=== PATIENT | female | born 1970 | race Caucasian/White ===

== ENCOUNTER 2016-05-04 05:56 | Emergency (ER) | payer BC, OTHER ==
[2016-05-04] MEDS ORDERED: ONDANSETRON 4 MG/2 ML VIAL IVP STA ×2 (06:08→10:04)
[2016-05-04] MEDS ORDERED: ONDANSETRON 4 MG/2 ML VIAL ONE ×2 (06:14→10:04)
[2016-05-04] MEDS ORDERED: SODIUM CHLORIDE 0.9% 1,000 ML IV ONE ×2 (06:41→08:30)
[2016-05-04] MEDS ORDERED: MORPHINE 2 MG/ML SYRINGE IVP STA (06:50)
[2016-05-04] MEDS ORDERED: MORPHINE 2 MG/ML SYRINGE ONE ×2 (07:01)
[2016-05-04] MEDS ORDERED: HYDROmorphone 1 MG/ML SYRINGE IVP STA ×2 (08:05→08:29)
[2016-05-04] MEDS ORDERED: HYDROmorphone 1 MG/ML SYRINGE ONE ×2 (08:08→08:29)
[2016-05-04] MEDS ORDERED: KETOROLAC 60 MG/2 ML VIAL IVP STA (08:16)
[2016-05-04] MEDS ORDERED: KETOROLAC 30 MG/ML VIAL ONE (08:17)
[2016-05-04] MEDS ORDERED: PROMETHAZINE 25 MG/1 ML VIAL ONE ×2 (08:42→12:07)
[2016-05-04] MEDS ORDERED: PROMETHAZINE INJ 12.5 MG in SODIUM CHLORIDE 0.9% 50 ML IV STA ×2 (08:43→12:01)
== END 2016-05-04 13:36 | disposition home or self-care (01) ==
DX: R10.11 Right upper quadrant pain (principal); R11.2 Nausea with vomiting, unspecified; D72.829 Elevated white blood cell count, unspecified; R42 Dizziness and giddiness; Z90.49 Acquired absence of other specified parts of digestive tract; Z90.5 Acquired absence of kidney; E78.00 Pure hypercholesterolemia, unspecified; I25.10 Atherosclerotic heart disease of native coronary artery without angina pectoris; I25.2 Old myocardial infarction; Z95.5 Presence of coronary angioplasty implant and graft; Z79.02 Long term (current) use of antithrombotics/antiplatelets; Z79.82 Long term (current) use of aspirin; Z87.891 Personal history of nicotine dependence
CPT/HCPCS: 36415; 76705; 80053; 81003; 82550; 83605; 83690; 83880; 84443; 84484; 85025; 87275; 87276; 93005; 93010; 96365; 96366; 96375; 96376; 99284; 99285; J1170

== ENCOUNTER 2016-05-31 14:44 | Outpatient (CLI) | payer OTHER | END 2016-05-31 14:45 | disposition home or self-care (01) | DX: R10.11 Right upper quadrant pain (principal); Z90.49 Acquired absence of other specified parts of digestive tract | CPT/HCPCS: 78226; A9537 ==

== ENCOUNTER 2016-09-08 08:34 | Outpatient (CLI) | payer OTHER ==
--- NOTE | 2016-09-12 09:37 | Mammography Report ---
DIGITAL BILATERAL SCREENING MAMMOGRAM: 09/08/2016 CLINICAL HISTORY: A 45-year-old female in for routine screening mammogram. Patient has no family hi story of breast cancer. Patient has had no breast surgeries. COMPARISON: 01/07/2008, 05/07/2011, 06/04/2014, 06/28/2015 TECHNIQUE: Craniocaudad and oblique lateral views of each breast were obtained with Hologic Full Fie ld digital mammography. FINDINGS: Breast parenchyma consists of scattered fibroglandular densities especially in the upper o uter quadrant of each breast. No significant clusters of calcification are seen. No significant mas ses are noted. No significant change is seen. IMPRESSION: BREASTS APPEAR RADIOGRAPHICALLY BENIGN. BIRADS CATEGORY 1 - NEGATIVE. RECOMMENDATIONS: Annual bilateral screening mammography. STANDARD QUALIFYING STATEMENTS 1. This examination was reviewed with the aid of Computer-Aided Detection (CAD). 2. A negative or benign imaging report should not delay biopsy if clinically suspicious findings are present. Consider surgical consultation if warranted. More than 5% of cancers are not identified by i maging. 3. Dense breasts may obscure an underlying neoplasm. JOB #: [id number] EXT JOB #:[id number]
== END 2016-09-08 08:35 | disposition home or self-care (01) ==
LOC: DI 08:34
PROVIDERS: ATTEND Family Medicine
DX: Z12.31 Encounter for screening mammogram for malignant neoplasm of breast (principal)
CPT/HCPCS: 77067

== ENCOUNTER 2016-12-20 11:59 | Inpatient (IN) | payer OTHER ==
[2016-12-20] MEDS ORDERED: SODIUM CHLORIDE 0.9% 1,000 ML IV ONE (12:05)
[2016-12-20 12:33] LABS: BASOPHILS # (AUTO) 0.1 10^3/uL (0.0-0.1); BASOPHILS % (AUTO) 0.8 %; EOSINOPHILS # (AUTO) 0.2 10^3/uL (0.0-0.7); EOSINOPHILS % (AUTO) 1.6 %; HCT - HEMATOCRIT 40.3 % (37.0-47.0); LYMPHOCYTES # (AUTO) 2.1 10^3/uL (1.5-3.5); LYMPHOCYTES % (AUTO) 22.6 %; MEAN CORPUSCULAR HEMOGLOBIN 31.9 pg (27.0-31.0); MEAN CORPUSCULAR HGB CONC 34.7 g/dL (32.0-36.0); MEAN CORPUSCULAR VOLUME 92.2 fL (81.0-99.0); MEAN PLATELET VOLUME 7.3 fL (7.9-10.8); MONOCYTES # (AUTO) 0.6 10^3/uL (0.0-1.0); MONOCYTES % (AUTO) 6.6 %; NEUTROPHILS # (AUTO) 6.5 10^3/uL (1.5-6.6); NEUTROPHILS % (AUTO) 68.4 %; NUCLEATED RED BLOOD CELLS AUTO 0.1 /100WBC; RED BLOOD COUNT 4.37 10^6/uL (4.20-5.40); RED CELL DISTRIBUTION WIDTH 12.9 % (12.0-15.0); UNCORRECTED WHITE BLOOD COUNT 9.5 x10^3/uL; WHITE BLOOD COUNT 9.5 x10^3/uL (4.8-10.8)
[2016-12-20 12:56] LABS: ALBUMIN/GLOBULIN RATIO 1.3 (1.0-2.2); BILIRUBIN,TOTAL 0.8 mg/dL (0.2-1.0); CALCIUM 9.3 mg/dL (8.5-10.3); CREATININE 0.7 mg/dL (0.4-1.0); POTASSIUM 3.6 mmol/L (3.5-5.0); TOTAL PROTEIN 7.5 g/dL (6.7-8.2)
[2016-12-20] MEDS ORDERED: MORPHINE 2 MG/ML SYRINGE IVP STA (13:21)
[2016-12-20] MEDS ORDERED: ONDANSETRON 4 MG/2 ML VIAL IVP STA (13:21)
--- NOTE | 2016-12-20 13:31 | ED Physician Documentation ---
PD HPI ABD PAIN - Stated complaint Stated Complaint: R SIDE ABD PX - Chief complaint Chief Complaint: Abd Pain - Additional information Additional information: hx from pt 46 f hx CAD and polycythemia and s/p yakov ooph, R nephrectomy for defect and misa admitted to [facility] 12/13 with abd pain and CT showed "confluent matted adherent thickened bowel centered approx cecum, appendix is unclear, process presumably inflammatory but neoplastic not ruled out . . . " pt was admitted on ab for several days, did not have surgery, then dc no antibiotics (don't have dc summary so hospital course and med decision making unknown at this time) followed up PMD today and is peritoneal so return to ER c/o abd pain no fever NVD Review of Systems Constitutional: denies: Fever Throat: denies: Sore throat Cardiac: denies: Chest pain / pressure Respiratory: denies: Dyspnea GI: reports: Abdominal Pain. 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 Cardiovascular: Coronary stent - Present Medications Home Medications: Ambulatory Orders Medication Instructions Recorded Confirmed Minocycline [Minocycline HCl] 100 mg PO DAILY 01/02/13 12/20/16 Aspirin [Aspir 81] 81 mg PO DAILY 01/29/14 12/20/16 Ezetimibe [Zetia] 1 tab PO DAILY 03/28/15 12/20/16 Cholecalciferol (Vitamin D3) 2,000 unit PO DAILY 12/20/16 12/20/16 [Vitamin D] Fluticasone [Flonase] 1 sprays MITUL DAILY 12/20/16 12/20/16 Loratadine 10 mg PO DAILY 12/20/16 12/20/16 Multivitamin with Folic Acid 1 tab PO DAILY 12/20/16 12/20/16 [Thera Tablet] traZODone [Desyrel] 50 mg PO ONCE 12/20/16 12/20/16 - Allergies Allergies/Adverse Reactions: Allergies Allergy/AdvReac Type Severity Reaction Status Date / Time amoxicillin [Amoxicillin] Allergy hepatitis Verified 12/20/16 12:07 citalopram hydrobromide * Allergy flank pain Verified 12/20/16 12:07 [From Celexa] sertraline Allergy Unknown Verified 12/20/16 12:07 simvastatin [From Zocor] Allergy flank pain Verified 12/20/16 12:07 - Social History Does the pt smoke?: Yes Smoking Status: Current every day smoker Does the pt drink ETOH?: Yes Does the pt have substance abuse?: No - Immunizations Immunizations are current?: Yes - POLST Patient has POLST: No PD ED PE NORMAL - Vitals Vital signs reviewed: Yes - Neck Neck: Supple, no meningeal sign - Cardiac Cardiac: RRR - Respiratory Respiratory: No respiratory distress, Clear bilaterally - Abdomen Abdomen: Other (+ BS soft but severe lower abd TTP with vol guarding and rebound ) - Extremities Extremities: Normal ROM s pain - Psych Psych: Normal mood Results - Vitals Vitals: Vital Signs - 24 hr 12/20/16 12/20/16 12/20/16 12:02 13:27 15:10 Temperature 36.9 C 36.7 C Heart Rate 75 68 68 Respiratory 18 15 18 Rate Blood Pressure 108/79 113/74 108/79 O2 Saturation 100 98 100 12/20/16 12/20/16 16:37 17:45 Temperature 37.3 C 37.1 C Heart Rate 81 51 L Respiratory 15 15 Rate Blood Pressure 118/81 H 123/79 O2 Saturation 98 100 Oxygen O2 Source Room air - Labs Labs: Laboratory Tests 12/20/16 12/20/16 12/20/16 12:22 12:22 12:22 WBC 9.5 RBC 4.37 Hgb 14.0 Hct 40.3 MCV 92.2 MCH 31.9 H MCHC 34.7 RDW 12.9 Plt Count 320 MPV 7.3 L Neut # 6.5 Lymph # 2.1 Moody # 0.6 Eos # 0.2 Baso # 0.1 Absolute Nucleated RBC 0.00 Nucleated RBC % 0.1 Sodium 137 Potassium 3.6 Chloride 102 Carbon Dioxide 24 Anion Gap 11.0 BUN 13 Creatinine 0.7 Estimated GFR (MDRD) 90 Glucose 94 Calcium 9.3 Total Bilirubin 0.8 AST 50 H ALT 40 Alkaline Phosphatase 59 Total Protein 7.5 Albumin 4.2 Globulin 3.3 Albumin/Globulin Ratio 1.3 Lipase 29 Serum HCG, Qual Blood Type A POSITIVE Antibody Screen NEGATIVE 12/20/16 12:22 WBC RBC Hgb Hct MCV MCH MCHC RDW Plt Count MPV Neut # Lymph # Moody # Eos # Baso # Absolute Nucleated RBC Nucleated RBC % Sodium Potassium Chloride Carbon Dioxide Anion Gap BUN Creatinine Estimated GFR (MDRD) Glucose Calcium Total Bilirubin AST ALT Alkaline Phosphatase Total Protein Albumin Globulin Albumin/Globulin Ratio Lipase Serum HCG, Qual NEGATIVE Blood Type Antibody Screen - Rads (name of study) CT AP with PO and IV Radiology: See rad report (most c/w acute appendicitis and localized perf) PD MEDICAL DECISION MAKING - ED course ED course: CT PO and IV shows acute appy with prob perf pt was on cipro flagyl at prior hospital all to penicillins but can take cephosporins so gave cefocitin and flagyl surgeon Dr Isidoro Caba to bedside Departure - Departure Disposition: ED Transfer to [facility] Clinical Impression: Appendicitis Qualifiers: Appendicitis type: acute appendicitis Acute appendicitis type: with localized peritonitis Qualified Code(s): K35.3 - Acute appendicitis with localized peritonitis Condition: Fair Discharge Date/Time: 12/20/16 17:52
[2016-12-20] MEDS ORDERED: IOPAMIDOL-300 50 ML VIAL ONE (13:34)
[2016-12-20] MEDS ORDERED: ONDANSETRON 4 MG/2 ML VIAL ONE ×2 (13:43→21:50)
[2016-12-20] MEDS ORDERED: MORPHINE 2 MG/ML SYRINGE ONE (13:43)
[2016-12-20] MEDS ORDERED: IOPAMIDOL-300 100 ML VIAL ONE (14:03)
[2016-12-20] MEDS ORDERED: IOPAMIDOL-300 50 ML VIAL PO ONE (15:58)
[2016-12-20] MEDS ORDERED: IOPAMIDOL-300 100 ML VIAL IVP ONE (15:58)
--- NOTE | 2016-12-20 16:30 | CT Preliminary Report ---
Exam: CT ABDOMEN/PELVIS W/ IMPRESSION: 1. Right lower quadrant inflammatory disease following the course of a previously identified appendix , most likely acute appendicitis, suspicious for localized perforation. 2. Status post right nephrectomy and other chronic or incidental findings. [facility] SITE ID: [id number]
--- NOTE | 2016-12-20 16:33 | CT Report ---
EXAM: CT ABDOMEN AND PELVIS EXAM DATE: 12/20/2016 03:45 PM. CLINICAL HISTORY: Rlq pain. COMPARISONS: 01/02/2013. TECHNIQUE: Routine helical CT imaging was performed through the abdomen and pelvis. IV contrast: 100 ML ISOVUE 300. Enteric contrast: Yes. Reconstructions: Coronal and sagittal. In accordance with CT protocol optimization, one or more of the following dose reduction techniques w ere utilized for this exam: automated exposure control, adjustment of mA and/or KV based on patient s ize, or use of iterative reconstructive technique. FINDINGS: Lung Bases: Mild bibasilar atelectasis. Otherwise unremarkable. No effusion. Liver: Normal. No masses. Gallbladder/Bile Ducts: Surgically absent. No ductal dilation. Small amount of pneumobilia. Spleen: Normal. Pancreas: Normal. Adrenal Glands: No change of small left adrenal adenoma. Otherwise unremarkable. Kidneys: Surgical absence of right kidney. Unremarkable left kidney with no stone or hydronephrosis. Peritoneal Cavity/Bowel: Small amounts of free fluid tracks along tissue planes in the right lower qu adrant and into the pelvis. Soft tissue thickening projects from the expected location of the cecal t ip medially and distally into the pelvis following the same course as a clearly defined appendix on t he previous study. Poorly defined enhancement within this lesion may represent appendiceal krause roug hly 11 mm in diameter. Mild hazy infiltration of fat in the right lower quadrant. Compare current cor onal image 23 with previous coronal image 20. No bowel dilation. No free air or lymphadenopathy. Pelvic Organs: Small amount of air in the bladder, probably secondary to recent catheterization. Vasculature: No aneurysms or other significant abnormality. Bones: No significant abnormality. Other: None. IMPRESSION: 1. Right lower quadrant inflammatory disease following the course of a previously identified appendix , most likely acute appendicitis, suspicious for localized perforation. 2. Status post right nephrectomy and other chronic or incidental findings. [facility] Referring Provider Line: [phone] SITE ID: [id number]
[2016-12-20] MEDS ORDERED: cefOXitin 1 GM in SODIUM CHLORIDE 0.9% MINIBAG 100 ML IV STA (17:35)
[2016-12-20] MEDS ORDERED: metroNIDAZOLE 500 MG/100 ML 500 MG/100 ML BAG IV ONE (17:35)
[2016-12-20] MEDS ORDERED: metroNIDAZOLE 500 MG/100 ML 500 MG/100 ML BAG ONE (17:47)
[2016-12-20] MEDS ORDERED: CIPROFLOXACIN 400 MG/200 ML 200 ML IV ONE (17:52)
--- NOTE | 2016-12-20 17:52 | HISTORY & PHYSICAL EXAMINATION ---
Chief Complaint - Chief Complaint Chief Complaint: RLQ abd pain Abdominal Pain HPI - Admitted From Admitted from: ED - History Obtained From Records Reviewed: RN notes reviewed, Old records reviewed History obtained from: Patient, Family, Friend Exam limitations: No limitations - History of Present Illness Severity at the worst: Severe Pain Quality: Sharp Context-Pain started w/: Rest Timing: Abrupt onset Duration: Days: (7) Improved with: Rest Worsened by: Exertion, Movement, Palpation HPI Comment/Other: 46 yo female who 7 days ago noted onset of epigastric pain and nausea without vomiting which localized to RLQ and resulted in her presenting to the ER for evaluation and admission. CT showed urinary retention treated with catheter and inflammatory process in RLQ with no definite appendix identified. She was treated with antibiotics and observation. Per pt diagnosis was changed to intra abd hemorrhage and antibiotics were stopped after 3 days. She was sent home on 4th day and noted persistent RLQ pain exacerbated by voiding, bm's, and movement. No fever/chills, vomiting, diarrhea, melena, hematochezia, previous similar sx. Was seen in PCP office today and referred to ER here for reevaluation. PMH/PSH - Past Medical History Cardiovascular: positive: Hypertension, High cholesterol, Coronary artery disease Respiratory: positive: None Neuro: positive: None Endocrine/Autoimmune: positive: None GI: positive: GERD TESTING LEAD: positive: Ovarian cysts (polycystic ovary syndrome) : positive: Retention HEENT: positive: None Psych: positive: Depression, Anxiety Musculoskeletal: positive: Osteoporosis, Chronic back pain Derm: positive: Rosacea MRSA Hx?: No Other Past Medical History: polycythemia vera - Past Surgical History General: positive: Cholecystectomy, EGD Ortho: positive: Carpal Tunnel surgery (bilat) /TESTING LEAD: positive: section, Oophrectomy (bilat for PCOS), Other (right nephrectomy for benign disease) Cardiovascular: positive: Coronary stent (x 2, in 2015 & 2016) Social & Family Hx - Living Situation Living Arrangement: At home Living Situation: With spouse/s.o. - Social History Does the pt smoke?: Yes Smoking Status: Current every day smoker Does the pt drink ETOH?: Yes Does the pt have substance abuse?: No - POLST Patient has POLST: No POLST Status: Full Code - Family History Family History: Mother: CAD, Hyperlipidemia Meds/Allgy - Home Medications Home Medications: Ambulatory Orders Medication Instructions Recorded Confirmed Minocycline [Minocycline HCl] 100 mg PO DAILY 01/02/13 12/20/16 Aspirin [Aspir 81] 81 mg PO DAILY 01/29/14 12/20/16 Ezetimibe [Zetia] 1 tab PO DAILY 03/28/15 12/20/16 Cholecalciferol (Vitamin D3) 2,000 unit PO DAILY 12/20/16 12/20/16 [Vitamin D] Fluticasone [Flonase] 1 sprays MITUL DAILY 12/20/16 12/20/16 Loratadine 10 mg PO DAILY 12/20/16 12/20/16 Multivitamin with Folic Acid 1 tab PO DAILY 12/20/16 12/20/16 [Thera Tablet] traZODone [Desyrel] 50 mg PO ONCE 12/20/16 12/20/16 - Allergies Allergies/Adverse Reactions: Allergies Allergy/AdvReac Type Severity Reaction Status Date / Time amoxicillin [Amoxicillin] Allergy hepatitis Verified 12/20/16 12:07 citalopram hydrobromide * Allergy flank pain Verified 12/20/16 12:07 [From Celexa] sertraline Allergy Unknown Verified 12/20/16 12:07 simvastatin [From Zocor] Allergy flank pain Verified 12/20/16 12:07 Review of Systems - Constitutional Constitutional: reports: Poor appetite - Cardiovascular Cariovascular: reports: Edema. denies: Palpitations, Chest pain - Gastrointestinal Gastrointestinal: reports: Abdominal pain, Nausea, Reflux/heartburn, Poor appetite. denies: Constipation, Diarrhea, Change in bowel habits, Rectal bleeding, Black stools, Bloody stools, Vomiting, Bile emesis, Zion blood emesis , Coffee grounds emesis - Genitourinary Genitourinary: reports: Dysuria - Hematologic/Lymphatic Hematologic/Lymphatic: reports: Other (polycythemia vera) Exam - Vital Signs Reviewed Vital Signs: Yes Vital Signs: Vital Signs x48h Temp Pulse Resp BP Pulse Ox 12/20/16 16:37 37.3 C 81 15 118/81 H 98 12/20/16 15:10 68 18 108/79 100 12/20/16 13:27 36.7 C 68 15 113/74 98 12/20/16 12:02 36.9 C 75 18 108/79 100 - Physical Exam General Appearance: positive: Alert, Moderate distress Eyes Bilateral: positive: Normal inspection, Conjunctivae nml, No scleral icterus ENT: positive: ENT inspection nml, Pharynx nml, No signs of dehydration Neck: positive: Nml inspection, Thyroid nml, No JVD. negative: Lymphadenopathy (R), Lymphadenopathy (L) Respiratory: positive: Chest non-tender, No respiratory distress, Breath sounds nml. negative: Wheezes, Rales, Rhonchi Cardiovascular: positive: Regular rate & rhythm, No murmur, No gallop Peripheral Pulses: positive: 1+ Abdomen: positive: No organomegaly, Nml bowel sounds, No distention, Tenderness (RLQ peritoneal signs; + Rovsing's sign no generalized peritoneal signs), Guarding, Rebound, Splenomegaly. negative: Hepatomegaly, Mass Skin: positive: Color nml, Warm, Dry Extremities: positive: Nml appearance, No pedal edema. negative: Calf tenderness Neurologic/Psychiatric: positive: Oriented x3, Mood/affect nml Results - Lab Results Fish Bones: 12/20/16 12:22 12/20/16 12:22 Other Lab Results: Lab Results x24hrs 12/20/16 12/20/16 12/20/16 Range/Units 12:22 12:22 12:22 WBC 9.5 (4.8-10.8) x10^3/uL RBC 4.37 (4.20-5.40) 10^6/uL Hgb 14.0 (12.0-16.0) g/dL Hct 40.3 (37.0-47.0) % MCV 92.2 (81.0-99.0) fL MCH 31.9 H (27.0-31.0) pg MCHC 34.7 (32.0-36.0) g/dL RDW 12.9 (12.0-15.0) % Plt Count 320 (130-450) 10^3/uL MPV 7.3 L (7.9-10.8) fL Neut # 6.5 (1.5-6.6) 10^3/uL Lymph # 2.1 (1.5-3.5) 10^3/uL Davison # 0.6 (0.0-1.0) 10^3/uL Eos # 0.2 (0.0-0.7) 10^3/uL Baso # 0.1 (0.0-0.1) 10^3/uL Absolute Nucleated RBC 0.00 x10^3/uL Nucleated RBC % 0.1 /100WBC Sodium 137 (135-145) mmol/L Potassium 3.6 (3.5-5.0) mmol/L Chloride 102 (101-111) mmol/L Carbon Dioxide 24 (21-32) mmol/L Anion Gap 11.0 (6-13) BUN 13 (6-20) mg/dL Creatinine 0.7 (0.4-1.0) mg/dL Estimated GFR (MDRD) 90 (>89) Glucose 94 (70-100) mg/dL Calcium 9.3 (8.5-10.3) mg/dL Total Bilirubin 0.8 (0.2-1.0) mg/dL AST 50 H (10-42) IU/L ALT 40 (10-60) IU/L Alkaline Phosphatase 59 (42-121) IU/L Total Protein 7.5 (6.7-8.2) g/dL Albumin 4.2 (3.2-5.5) g/dL Globulin 3.3 (2.1-4.2) g/dL Albumin/Globulin Ratio 1.3 (1.0-2.2) Lipase 29 (22-51) U/L Serum HCG, Qual NEGATIVE Blood Type Antibody Screen 12/20/16 Range/Units 12:22 WBC (4.8-10.8) x10^3/uL RBC (4.20-5.40) 10^6/uL Hgb (12.0-16.0) g/dL Hct (37.0-47.0) % MCV (81.0-99.0) fL MCH (27.0-31.0) pg MCHC (32.0-36.0) g/dL RDW (12.0-15.0) % Plt Count (130-450) 10^3/uL MPV (7.9-10.8) fL Neut # (1.5-6.6) 10^3/uL Lymph # (1.5-3.5) 10^3/uL Davison # (0.0-1.0) 10^3/uL Eos # (0.0-0.7) 10^3/uL Baso # (0.0-0.1) 10^3/uL Absolute Nucleated RBC x10^3/uL Nucleated RBC % /100WBC Sodium (135-145) mmol/L Potassium (3.5-5.0) mmol/L Chloride (101-111) mmol/L Carbon Dioxide (21-32) mmol/L Anion Gap (6-13) BUN (6-20) mg/dL Creatinine (0.4-1.0) mg/dL Estimated GFR (MDRD) (>89) Glucose (70-100) mg/dL Calcium (8.5-10.3) mg/dL Total Bilirubin (0.2-1.0) mg/dL AST (10-42) IU/L ALT (10-60) IU/L Alkaline Phosphatase (42-121) IU/L Total Protein (6.7-8.2) g/dL Albumin (3.2-5.5) g/dL Globulin (2.1-4.2) g/dL Albumin/Globulin Ratio (1.0-2.2) Lipase (22-51) U/L Serum HCG, Qual Blood Type A POSITIVE Antibody Screen NEGATIVE - Diagnostic Imaging Results Diagnostic Imaging Results: positive: Final report reviewed, Read independently Diagnostic Imaging Results Comments: CT abd/pelvis: findings c/w perforated appendix with localized peritonitis; absent right kidney and gallbladder - EKG Results EKG Interpreted Independently: No EKG Findings: NSR, NAD ARRA - Anticipated LOS Anticipated Stay Length: 2 or more midnights - DVT/VTE - Prophylaxis VTE/DVT Device ordered at admit?: Yes VTE/DVT Prophylaxis med ordered at admit?: No Not Ordered - Medical Reason: Contraindicated (hx plavix and aspirin use; going to OR today) Impression/Plan - Problem List Problem List: Acute abdomen: likely due to acute appendicitis with perforation. Plan to OR for appendectomy/laparoscopic poss open. CAD: s/p angioplasties x 2; now asymptomatic; on Plavix and ASA, plavix stopped 6 days ago per pt. ECG neg.
[2016-12-20] MEDS ORDERED: LACTATED RINGERS 1,000 ML IV ONE ×3 (18:29→20:42)
[2016-12-20] MEDS ORDERED: SUCCINYLCHOLINE 200 MG/10 ML VIAL IVP ONE (18:30)
[2016-12-20] MEDS ORDERED: ONDANSETRON 4 MG/2 ML VIAL IVP ONE (18:30)
[2016-12-20] MEDS ORDERED: PHENYLEPHRINE 50 MG/5 ML VIAL IV ONE (18:30)
[2016-12-20] MEDS ORDERED: LIDOCAINE-MPF 2% 5 ML VIAL IM ONE (18:30)
[2016-12-20] MEDS ORDERED: NEOSTIGMINE 1 MG/1 ML 10 ML MDV IVP ONE (18:30)
[2016-12-20] MEDS ORDERED: GLYCOPYRROLATE 1 MG/5 ML VIAL IVP ONE (18:30)
[2016-12-20] MEDS ORDERED: ROCURONIUM 50 MG/5 ML VIAL IVP ONE (18:30)
[2016-12-20] MEDS ORDERED: DEXAMETHASONE 4 MG/ML VIAL IVP ONE (18:30)
[2016-12-20] MEDS ORDERED: PROPOFOL 200 MG/20 ML VIAL IVP ONE (18:30)
[2016-12-20] MEDS ORDERED: MIDAZOLAM 2 MG/2 ML VIAL IVP ONE (18:30)
[2016-12-20] MEDS ORDERED: ACETAMINOPHEN 1,000 MG/100 ML 100 ML IV ONE (18:30)
[2016-12-20] MEDS ORDERED: fentaNYL 100 MCG/2 ML VIAL IVP ONE (18:30)
[2016-12-20] MEDS ORDERED: BUPIVACAINE 0.5%-EPI 1:200000 PF 30 ML VIAL SUBQ ONE (18:44)
[2016-12-20] MEDS ORDERED: fentaNYL 100 MCG/2 ML VIAL ONE (21:09)
--- NOTE | 2016-12-20 21:12 | OPERATIVE REPORT ---
Operative Report - General Procedure Date: 12/20/16 Planned Procedure: laparoscopic appy Pre-Op Diagnosis: perforated acute appendicitis Procedure Performed: Diagnostic laparoscopy converted to laparotomy, appendectomy, and control of hemorrhage from right infundibular pelvic ligament Post Op Diagnosis: Hemoperitoneum due to bleeding from right infundibular pelvic ligament. - Procedure Note Primary Surgeon: Ludwin Caba MD Secondary Surgeon: Dr. Jauregui Anesthesia Provider: Emmanuel Turcios CRNA Anesthesia Technique: General ET tube Pathology: biopsies of infundibulo-pelvic ligament; appendix IV Fluids (mL): 2,000 Estimated Blood Loss (mL): 500 Urine Output (mL): 1,500 Complications: none
--- NOTE | 2016-12-20 21:26 | OPERATIVE REPORT ---
Operative Report - Other Other Information/Narrative: Date of Operation: 12/20/2016 Surgeon: Ludwin Caba MD [employer] Erector/junior assistant manager: Lavonne Jauregui DO FACOG Pre-op Dx: Abdominal bleeding Post-op Dx: Abdominal bleeding Procedure: 1. Ligation of infundibulopelvic ligament 2. Cauterization of fundal suture line Findings: 1. Surgically absent bilateral adnexea 2. Bleeding from the suture line on the fundus of the uterus 3. Generalized inflammation, no gross findings of endometriosis Specimens: 1. C&S of pelvis 2. Biopsy of right infundibulopelvic ligament Drains: 1. Moura catheter to gravity 2. Prevena wound vacuum EBL: 10 mL Complications: None Dictation: [id number]
[2016-12-20] MEDS ORDERED: PROMETHAZINE 25 MG/1 ML VIAL ONE (21:29)
[2016-12-20 21:30] LABS: HCT - HEMATOCRIT 41.5 % (37.0-47.0); HGB - HEMOGLOBIN 14.1 g/dL (12.0-16.0); MEAN CORPUSCULAR HEMOGLOBIN 31.9 pg (27.0-31.0); MEAN CORPUSCULAR HGB CONC 33.9 g/dL (32.0-36.0); MEAN CORPUSCULAR VOLUME 94.2 fL (81.0-99.0); MEAN PLATELET VOLUME 7.4 fL (7.9-10.8); RED BLOOD COUNT 4.4 10^6/uL (4.20-5.40); RED CELL DISTRIBUTION WIDTH 13.1 % (12.0-15.0)
[2016-12-20] MEDS: ACETAMINOPHEN 1,000 MG/100 ML 100 ML IV SCH (22:50)
[2016-12-20] MEDS: MORPHINE PCA 50 MG IV PRN (22:51)
[2016-12-20] MEDS: LACTATED RINGERS 1,000 ML IV SCH ×2 (22:55→23:30)
[2016-12-20] MEDS: SODIUM CHLORIDE FLUSH 0.9% 10 ML SYRINGE IVP SCH (22:55)
[2016-12-21] MEDS: FAMOTIDINE 20 MG/50 ML 50 ML IV SCH ×3 (00:28→22:54)
[2016-12-21] MEDS: LACTATED RINGERS 1,000 ML IV SCH ×2 (02:02→11:15)
[2016-12-21 02:23] LABS: BILIRUBIN,URINE NEGATIVE (NEGATIVE)
[2016-12-21 02:24] LABS: UA w/ MICROSCOPIC CHARGE YES
[2016-12-21 02:39] LABS: UR CULTURE IF IND INDICATED; WBC,URINE >25 /HPF (0-5)
[2016-12-21] MEDS: ACETAMINOPHEN 1,000 MG/100 ML 100 ML IV SCH ×4 (03:02→21:45)
--- NOTE | 2016-12-21 03:35 | CONSULTATION NOTE ---
Referring Provider Name of Referring Provider:: Dr. 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 The patient states that her pain initially started 1 week ago when she was in [place]. At that time the patient went to [facility] and was admitted as she had findings of inflammatory change on CT scan in the right lower quadrant. At that time no appendix was visualized. The patient was monitored for several day she was given IV antibiotics, IV fluids and during the hospitalization according to the patient' s the patient's hemoglobin was quite variable. It is not clear if the patient was transfused during the hospitalization but 4 days ago she was discharged as she was found to be stable. The patient states however she did not ever have complete resolution of her abdominal pain. Over the course of the last 4 days the patient's right lower quadrant abdominal pain has gradually worsened. Today the patient's pain was very severe 10 out of 10 located in the right lower quadrant and the patient states the pain was worse with any kind of movement. On presentation to the emergency department the patient was E8 afebrile and vital signs appear to be normal. The patient had no leukocytosis and all her electrolytes were within normal limits. The patient did undergo a CT of her abdomen and pelvis which revealed that she had right lower quadrant inflammatory disease following the course of a previously identified appendix which most likely represented acute appendicitis which was suspicious for localized perforation. The patient was evaluated by the surgeon commissions coordinator Dr. Ludwin Caba who saw the patient in the emergency department and found that she had a surgical belly therefore she was taken directly to the OR. In the OR the patient was started with a diagnostic laparoscopy which was converted to a laparotomy and the patient did undergo an appendectomy although according to the surgeon the patient's appendix appeared grossly normal. During the surgery they have also found that there was hemorrhaging from the right infundibular pelvic ligament. The patient's hemorrhaging was controlled and the area that was bleeding was stitched up and biopsies were taken. The estimated blood loss was about 1500 500 mL's. The patient appeared to be stable after surgery and was admitted to the medical mejia. Surgery asked us to consult to manage the patient's medical problems. The patient otherwise denied any headaches, blurred vision, runny nose, sore throat, nasal congestion, fevers, chills, cough, chest pain, shortness of air, orthopnea, PND, diarrhea, she did admit to urinary retention but denied any dysuria. The patient denied any joint pains, muscle aches, back pain, neck stiffness, changes in her appetite, recent unintentional weight loss or focal neurologic deficits. 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 Social History Notes: Patient lives with her and [place]. 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 The patient and her are originally from [place] [facility] and have been living in [place] since 1990. The patient has 1 son. The patient quit smoking in 2014 when she had an NV she started at the age of 18 and smoked a pack a day for 25 years. The patient occasionally drinks alcohol and denies any illicit drug use per - Substance History Use: Uses substance without health or social issues: NONE Abuse: Recurrent use of substance despite neg consequences: NONE Dependence: Experiences withdrawal or developed tolerances: NONE - POLST Patient has POLST: No POLST Status: Full Code Meds/Allgy - Home Medications Home Medications: Ambulatory Orders Medication Instructions Recorded Confirmed Minocycline [Minocycline HCl] 100 mg PO DAILY 01/02/13 12/20/16 Aspirin [Aspir 81] 81 mg PO DAILY 01/29/14 12/20/16 Ezetimibe [Zetia] 1 tab PO DAILY 03/28/15 12/20/16 Cholecalciferol (Vitamin D3) 2,000 unit PO DAILY 12/20/16 12/20/16 [Vitamin D] Fluticasone [Flonase] 1 sprays MITUL DAILY 12/20/16 12/20/16 Loratadine 10 mg PO DAILY 12/20/16 12/20/16 Multivitamin with Folic Acid 1 tab PO DAILY 12/20/16 12/20/16 [Thera Tablet] traZODone [Desyrel] 50 mg PO ONCE 12/20/16 12/20/16 - Allergies Allergies/Adverse Reactions: Allergies Allergy/AdvReac Type Severity Reaction Status Date / Time amoxicillin [Amoxicillin] Allergy hepatitis Verified 12/20/16 12:07 citalopram hydrobromide * Allergy flank pain Verified 12/20/16 12:07 [From Celexa] sertraline Allergy Unknown Verified 12/20/16 12:07 simvastatin [From Zocor] Allergy flank pain Verified 12/20/16 12:07 Review of Systems - Other Findings Other Findings: A comprehensive review of systems was performed the pertinent positives and negatives are stated above in the HPI and the remainder of the review of systems is negative. Exam - Vital Signs Reviewed Vital Signs: Yes Vital Signs: Vital Signs x48h Temp Pulse Resp BP Pulse Ox 12/21/16 03:00 16 12/21/16 02:00 16 12/21/16 01:00 83 14 100/67 94 12/21/16 00:00 16 12/20/16 23:30 36.5 C 78 16 110/75 94 12/20/16 23:00 14 12/20/16 22:30 36.0 C L 86 16 93/61 95 12/20/16 22:00 36.8 C 77 14 109/77 95 12/20/16 21:45 95 12/20/16 21:40 96 12/20/16 21:35 97 12/20/16 21:30 96 12/20/16 21:25 99 12/20/16 21:20 100 12/20/16 21:15 99 12/20/16 21:10 99 12/20/16 21:05 100 12/20/16 21:00 100 12/20/16 20:58 100 - Physical Exam General Appearance: positive: Lethargic, Other (Patient is postop and quite lethargic she does not appear to be in any respiratory or distress.) Eyes Bilateral: positive: Normal inspection, PERRL, EOMI, No lid inflammation, Conjunctivae nml, No scleral icterus ENT: positive: ENT inspection nml, Pharynx nml, Dry mucous membranes. negative : Purulent nasal drainage, Pharyngeal erythema, Oral lesions Neck: positive: Nml inspection, Thyroid nml, No JVD, Trachea midline. negative : Thyromegaly, Lymphadenopathy (R), Lymphadenopathy (L), Carotid bruit, Tracheal deviation Respiratory: positive: Chest non-tender, No respiratory distress, Breath sounds nml. negative: Wheezes, Rales, Rhonchi Cardiovascular: positive: Regular rate & rhythm, No murmur, No gallop Peripheral Pulses: positive: 2+ Abdomen: positive: No organomegaly, Tenderness (Abdomen is soft but tender especially in the areas around the surgical incisions.), Guarding. negative: Rebound, Hepatomegaly Back: positive: Nml inspection. negative: CVA tenderness (R), CVA tenderness (L ) Skin: positive: No rash. negative: Cyanosis, Pallor Extremities: positive: Non-tender, Full ROM, Nml appearance, No pedal edema Neurologic/Psychiatric: positive: Oriented x3, CN's nml (2-12), Motor nml, Sensation nml, Mood/affect nml Conclusion/Plan - Diagnosis Diagnosis: 1. Hemoperitoneum due to bleeding from the right infundibular pelvic ligament. 2. UTI. 3. Coronary Artery Disease. 4. Hypertension. 5. Hyperlipidemia - Plan Plan: 1. POD#0 s/p appendectomy and control of hemorrhage from the right infundibular pelvic ligament Surgery following Monitor Hb IVFs Pain control Hold plavix and aspirin Monitor closely NPO for now 2. Patient had some bladder wall thickening on CT and urinary retention UA had moderate LE, >25 WBCs and few bacteria Treat for UTI with ceftriaxone IV Awaiting urine culture to de-escalate 3. Patient on aspirin, plavix and zetia at home dose not appear to be on statin as she has an allergy or metoprolol We will hold aspirin and plavix given pelvic hemorrhage Patients last stent was greater than 1 year ago Vital signs are stable No chest pain or shortness of breath Monitor closely 4. Hypertension Patient not on any antihypertensives at home according to med list Patients BP is borderline low possibly secondary to hemorrhage or pain medication Will not start on any antihypertensives for now Monitor BP 5. Hyperlipidemia Will continue patients home dose of zetia Thank you for this consultation we will continue to follow the patient. - Lab Results Lab results reviewed: Yes Fish Bones: 12/20/16 21:23 12/20/16 12:22 Other Lab Results: Laboratory Results WBC 18.0 x10^3/uL (4.8-10.8) H 12/20/16 21: RBC 4.40 10^6/uL (4.20-5.40) 12/20/16 21: Hgb 14.1 g/dL (12.0-16.0) 12/20/16 21: Hct 41.5 % (37.0-47.0) 12/20/16 21: MCV 94.2 fL (81.0-99.0) 12/20/16 21: MCH 31.9 pg (27.0-31.0) H 12/20/16 21: MCHC 33.9 g/dL (32.0-36.0) 12/20/16 21: RDW 13.1 % (12.0-15.0) 12/20/16 21: Plt Count 297 10^3/uL (130-450) 12/20/16 21: MPV 7.4 fL (7.9-10.8) L 12/20/16 21:23 Neut # 6.5 10^3/uL (1.5-6.6) 12/20/16 12:22 Lymph # 2.1 10^3/uL (1.5-3.5) 12/20/16 12:22 Harper # 0.6 10^3/uL (0.0-1.0) 12/20/16 12:22 Eos # 0.2 10^3/uL (0.0-0.7) 12/20/16 12:22 Baso # 0.1 10^3/uL (0.0-0.1) 12/20/16 12:22 Absolute Nucleated RBC 0.00 x10^3/uL 12/20/16 12:22 Nucleated RBC % 0.1 /100WBC 12/20/16 12:22 Sodium 137 mmol/L (135-145) 12/20/16 12:22 Potassium 3.6 mmol/L (3.5-5.0) 12/20/16 12:22 Chloride 102 mmol/L (101-111) 12/20/16 12:22 Carbon Dioxide 24 mmol/L (21-32) 12/20/16 12:22 Anion Gap 11.0 (6-13) 12/20/16 12:22 BUN 13 mg/dL (6-20) 12/20/16 12:22 Creatinine 0.7 mg/dL (0.4-1.0) 12/20/16 12:22 Estimated GFR (MDRD) 90 (>89) 12/20/16 12:22 Glucose 94 mg/dL (70-100) 12/20/16 12:22 Calcium 9.3 mg/dL (8.5-10.3) 12/20/16 12:22 Total Bilirubin 0.8 mg/dL (0.2-1.0) 12/20/16 12:22 AST 50 IU/L (10-42) H 12/20/16 12:22 ALT 40 IU/L (10-60) 12/20/16 12:22 Alkaline Phosphatase 59 IU/L (42-121) 12/20/16 12:22 Total Protein 7.5 g/dL (6.7-8.2) 12/20/16 12:22 Albumin 4.2 g/dL (3.2-5.5) 12/20/16 12:22 Globulin 3.3 g/dL (2.1-4.2) 12/20/16 12:22 Albumin/Globulin Ratio 1.3 (1.0-2.2) 12/20/16 12:22 Lipase 29 U/L (22-51) 12/20/16 12:22 Serum HCG, Qual NEGATIVE 12/20/16 12:22 Urine Color YELLOW 12/21/16 02:00 Urine Clarity SL. CLOUDY (CLEAR) 12/21/16 02:00 Urine pH 6.0 PH (5.0-7.5) 12/21/16 02:00 Ur Specific [place] 1.010 (1.002-1.030) 12/21/16 02:00 Urine Protein NEGATIVE mg/dL (NEGATIVE) 12/21/16 02:00 Urine Glucose (UA) NEGATIVE mg/dL (NEGATIVE) 12/21/16 02:00 Urine Ketones NEGATIVE mg/dL (NEGATIVE) 12/21/16 02:00 Urine Occult Blood SMALL (NEGATIVE) H 12/21/16 02:00 Urine Nitrite NEGATIVE (NEGATIVE) 12/21/16 02:00 Urine Bilirubin NEGATIVE (NEGATIVE) 12/21/16 02:00 Urine Urobilinogen 0.2 (NORMAL) E.U./dL (NORMAL) 12/21/16 02:00 Ur Leukocyte Esterase MODERATE (NEGATIVE) H 12/21/16 02:00 Urine RBC 6-10 /HPF (0-5) H 12/21/16 02:00 Urine WBC >25 /HPF (0-5) H 12/21/16 02:00 Ur Squamous Epith Cells NONE SEEN (<= Few) 12/21/16 02:00 Urine Bacteria Few /HPF (None Seen) 12/21/16 02:00 Ur Microscopic Review INDICATED 12/21/16 02:00 Urine Culture Comments INDICATED 12/21/16 02:00 Blood Type A POSITIVE 12/20/16 12:22 Blood Type Recheck A POSITIVE 12/20/16 19:27 Antibody Screen NEGATIVE 12/20/16 12:22 Crossmatch IS Only See Detail 12/20/16 12:22 - Diagnostic Imaging Results Diagnostic Imaging Results: positive: Final report reviewed Diagnostic Imaging Results Comments: CT abdomen/pelvis Impression: 1. Right lower quadrant inflammatory disease following the course of a previously identified appendix, most likely acute appendicitis, suspicious for localized perforation. 2. Status post right nephrectomy and other chronic and/or incidental findings.
[2016-12-21] MEDS: SODIUM CHLORIDE FLUSH 0.9% 10 ML SYRINGE IVP PRN (04:18)
[2016-12-21] MEDS: cefTRIAXone 1 GM in SODIUM CHLORIDE 0.9% MINIBAG 100 ML IV SCH ×2 (04:18→08:53)
[2016-12-21] MEDS: SODIUM CHLORIDE FLUSH 0.9% 10 ML SYRINGE IVP SCH ×3 (06:10→21:46)
[2016-12-21 06:21] LABS: BASOPHILS # (AUTO) 0.1 10^3/uL (0.0-0.1); BASOPHILS % (AUTO) 0.4 %; HCT - HEMATOCRIT 42.5 % (37.0-47.0); HGB - HEMOGLOBIN 14.4 g/dL (12.0-16.0); LYMPHOCYTES # (AUTO) 0.7 10^3/uL (1.5-3.5); LYMPHOCYTES % (AUTO) 5.6 %; MEAN CORPUSCULAR HEMOGLOBIN 31.8 pg (27.0-31.0); MEAN CORPUSCULAR HGB CONC 33.9 g/dL (32.0-36.0); MEAN CORPUSCULAR VOLUME 93.8 fL (81.0-99.0); MEAN PLATELET VOLUME 7.5 fL (7.9-10.8); MONOCYTES # (AUTO) 0.9 10^3/uL (0.0-1.0); MONOCYTES % (AUTO) 7.3 %; NEUTROPHILS # (AUTO) 11.2 10^3/uL (1.5-6.6); NEUTROPHILS % (AUTO) 86.7 %; RED BLOOD COUNT 4.53 10^6/uL (4.20-5.40)
[2016-12-21 06:32] LABS: ALBUMIN/GLOBULIN RATIO 1.3 (1.0-2.2); BILIRUBIN,TOTAL 0.4 mg/dL (0.2-1.0); CALCIUM 8.8 mg/dL (8.5-10.3); CREATININE 0.6 mg/dL (0.4-1.0); TOTAL PROTEIN 6.2 g/dL (6.7-8.2)
--- NOTE | 2016-12-21 07:30 | OPERATIVE REPORT ---
DATE OF SURGERY: 12/20/2016 00:00:00 PREOPERATIVE DIAGNOSIS: Acute abdomen secondary to perforated acute appendicitis. POSTOPERATIVE DIAGNOSES 1. Hemoperitoneum thought due to bleeding from the right infundibulopelvic ligament, of unclear etiology. 2. Periappendicitis. PROCEDURES 1. Diagnostic laparoscopy converted to exploratory laparotomy. 2. Appendectomy. 3. Lysis of adhesions with evacuation of pelvic hematoma and hemoperitoneum. 4. Biopsy and oversewing of the right infundibulopelvic ligament. ANESTHESIA: General endotracheal by Emmaunel Harris CRNA. SURGEON: Ludwin Caba MD. COMMERCIAL CONSTRUCTION PROJECT MANAGER: Dr. Lavonne Jauregui ESTIMATED BLOOD LOSS: 500 mL FLUIDS REPLACED: 2000 mL Crystalloid solution. URINE OUTPUT: 1500 mL. COMPLICATIONS: None. FINDINGS: Laparoscopy revealed extensive intra-abdominal adhesions in the right lower quadrant, lower midline, and left upper quadrant, which made visualization difficult. Fresh and old appearing blood was also noted in the peritoneal cavity.Following conversion to exploratory laparotomy, the patient was noted to have hemoperitoneum with a total of approximately 500 mL of blood and clots present in the peritoneal cavity. The greatest collection was noted to be in the right lower quadrant where old, chocolate colored clots and inflammation were present primarily in the region of the right infundibulopelvic ligament, but also incorporating the appendix and the antimesenteric border of the sigmoid colon. The ovaries are surgically absent. The uterus was atrophic without fibroids. There was no evidence of acute inflammation of either the colon or the appendix. Appendiceal changes were thought to be due to periappendicitis with slight erythema and minimal thickening. The visualized portions of the remainder of the colon and rectum, liver, small bowel were within normal limits. The gallbladder was surgically absent. The right kidney was surgically absent. The left kidney was palpably enlarged, but otherwise normal. Extensive adhesions limited exploration of the left upper quadrant, but no bleeding appeared to be present arising from the upper abdomen. Intraoperative RESCUE INSTRUCTOR consultation was obtained with Dr. Jauregui and it was unclear to either of us why there was inflammation and bleeding from the infundibulopelvic ligament. Differential diagnosis was thought to include pelvic inflammatory disease, endometriosis, or ovarian cyst disease related to polycystic ovary disease and the bleeding exacerbated by dual agent antiplatelet therapy, but the findings were not clearly indicative of any of those conditions. There was no evidence of malignancy. INDICATIONS: The patient is a 46-year-old with a complicated past medical with a 1-week history of right lower quadrant abdominal pain, which was evaluated during a 4-day admission at the [facility], where an inflammatory process thought to be present in the right lower quadrant. She was treated briefly with antibiotics, which were then discontinued. There was concern whether there might be intra-abdominal hemorrhage. She was observed and was stable. She was discharged home, only to return to the ER today with worsening right lower quadrant pain and a CT showing evidence of findings consistent with perforated acute appendicitis with a thickened appendix with periappendiceal fluid. She was advised to undergo diagnostic laparoscopy and possible appendectomy. PAST MEDICAL HISTORY: Significant for bilateral oophorectomy for polycystic ovary disease and coronary artery disease with ongoing therapy with Plavix and aspirin, the Plavix reportedly held approximately 5-6 days ago. TECHNIQUE: After informed consent, the patient was taken to the operating room and was placed under general endotracheal anesthesia. Her abdomen was prepared with ChloraPrep solution and draped in the usual sterile fashion. Transverse incision made along inferior to the umbilicus and carried down through layers of abdominal wall. The peritoneum was identified and sharply. A 10 mm Mil cannula was inserted. Pneumoperitoneum achieved with carbon dioxide. A 10 mm degree [employer] telescope was inserted. Laparoscopy was carried out. Findings noted above. A 5 mm port was placed in the left lower quadrant and adhesions were lysed with the LigaSure device. However, because of the severe nature of the adhesions, as well as identifying blood in the peritoneal cavity, it was decided to convert to an open procedure. The instruments and cannulas were removed under direct vision. Pneumoperitoneum was allowed to escape and an infraumbilical incision was converted to a midline incision extending above the umbilicus 2-3 cm and down to the pubis. Hemostasis achieved with electrocautery. Incision carried down to the layer of the abdominal wall into the peritoneum, identified and widely opened. Adhesions were lysed sharply and with electrocautery. The abdomen was explored carefully with findings as noted above. The source of the bleeding was eventually identified as coming from what appeared to be the right infundibulopelvic ligament and that area was packed. An appendectomy was then performed using the LigaSure to divide the mesoappendix and then the laparoscopic 45 mm stapler with the vascular load to ligate and divide the appendix at its base, which also provided hemostasis. The appendix was sent for pathologic evaluation. Intraoperative consultation was obtained with Dr. Jauregui who assisted and her findings were included as noted above. She performed an imbrication oversewing of the right infundibulum ligament to assist in hemostasis with 3-0 Vicryl suture. Surgicel was then applied for further hemostasis, which appeared to be adequate. At that point, the abdominal cavity was copiously irrigated with saline solution, following which wound closure was accomplished in layers using continuous 0 Vicryl to reapproximate the peritoneum and posterior rectus sheath below the umbilicus followed by a #1 PDS for the midline fascia above the umbilicus and anterior fascia below followed by 2-0 Vicryl for subcutaneous tissues followed by skin oleg and a Provena dressing. Anesthesia was terminated and the patient transferred to the recovery room in satisfactory condition. Sponge and needle counts correct x2 and no drains were used, and 30 mL of 0.5% Marcaine with epinephrine was infiltrated into the wound to assist in postoperative analgesia. JOB #: [id number] EXT JOB #:[id number] [email or web address]
[2016-12-21] MEDS: POLYETHYLENE GLYCOL 3350 17 GM PACKET PO SCH (09:45)
--- NOTE | 2016-12-21 10:40 | PROVIDER PROGRESS NOTE ---
Subjective - General Admit Date: 12/20/16 Procedure Date: 12/20/16 Post Op Days: 1 Procedure Performed: ex lap, appy, evacuation of pelvic hematoma, control hemorrhage - Review of Systems Wound/Incisions: positive: Dressing dry and intact, No drainage General: positive: Appetite (hungry and thirsty) HEENT: positive: No symptoms Pulmonary: positive: Other (difficulty taking deep breaths due to incisional pain) Cardiovascular: positive: No symptoms Gastrointestinal: positive: Abdominal pain (incisional pain well controlled with SENIOR DATA ARCHITECT preop sx have resolved). negative: Nausea, Vomiting, Difficulty swallowing, Diarrhea Genitourinary: positive: No symptoms Musculoskeletal: positive: No symptoms Skin: positive: No symptoms Psychiatric: positive: No symptoms Objective - Patient Data Reviewed Vital Signs: Yes Vital Signs: Vital Signs x48h Temp Pulse Resp BP Pulse Ox 12/21/16 08:37 36.5 C 79 18 98/64 96 12/21/16 08:11 16 12/21/16 06:00 16 12/21/16 05:00 36.7 C 86 16 101/69 97 12/21/16 04:00 16 12/21/16 03:00 16 Weight: Weight 12/19/16 12/20/16 12/21/16 23:59 23:59 23:59 Weight (kg) 74.8 kg Intake & Output: Intake and Output Totals x24h 12/19/16 12/20/16 12/21/16 23:59 23:59 23:59 Intake Total 200 1306.666 Output Total 175 1450 Balance 25 -143.334 - Lab Results Lab Results: 12/21/16 05:57 12/21/16 05:57 Other Lab Results: Lab Results x24hrs 12/21/16 12/21/16 12/21/16 Range/Units 05:57 05:57 02:00 WBC 13.0 H (4.8-10.8) x10^3/uL RBC 4.53 (4.20-5.40) 10^6/uL Hgb 14.4 (12.0-16.0) g/dL Hct 42.5 (37.0-47.0) % MCV 93.8 (81.0-99.0) fL MCH 31.8 H (27.0-31.0) pg MCHC 33.9 (32.0-36.0) g/dL RDW 13.0 (12.0-15.0) % Plt Count 304 (130-450) 10^3/uL MPV 7.5 L (7.9-10.8) fL Neut # 11.2 H (1.5-6.6) 10^3/uL Lymph # 0.7 L (1.5-3.5) 10^3/uL [place] # 0.9 (0.0-1.0) 10^3/uL Eos # 0.0 (0.0-0.7) 10^3/uL Baso # 0.1 (0.0-0.1) 10^3/uL Absolute Nucleated RBC 0.00 x10^3/uL Nucleated RBC % 0.0 /100WBC Sodium 137 (135-145) mmol/L Potassium 4.0 (3.5-5.0) mmol/L Chloride 103 (101-111) mmol/L Carbon Dioxide 25 (21-32) mmol/L Anion Gap 9.0 (6-13) BUN 6 (6-20) mg/dL Creatinine 0.6 (0.4-1.0) mg/dL Estimated GFR (MDRD) 107 (>89) Glucose 129 H (70-100) mg/dL Calcium 8.8 (8.5-10.3) mg/dL Total Bilirubin 0.4 (0.2-1.0) mg/dL AST 40 (10-42) IU/L ALT 32 (10-60) IU/L Alkaline Phosphatase 50 (42-121) IU/L Total Protein 6.2 L (6.7-8.2) g/dL Albumin 3.5 (3.2-5.5) g/dL Globulin 2.7 (2.1-4.2) g/dL Albumin/Globulin Ratio 1.3 (1.0-2.2) Urine Color YELLOW Urine Clarity SL. CLOUDY (CLEAR) Urine pH 6.0 (5.0-7.5) PH Ur Specific [place] 1.010 (1.002-1.030) Urine Protein NEGATIVE (NEGATIVE) mg/dL Urine Glucose (UA) NEGATIVE (NEGATIVE) mg/dL Urine Ketones NEGATIVE (NEGATIVE) mg/dL Urine Occult Blood SMALL H (NEGATIVE) Urine Nitrite NEGATIVE (NEGATIVE) Urine Bilirubin NEGATIVE (NEGATIVE) Urine Urobilinogen 0.2 (NORMAL) (NORMAL) E.U./dL Ur Leukocyte Esterase MODERATE H (NEGATIVE) Urine RBC 6-10 H (0-5) /HPF Urine WBC >25 H (0-5) /HPF Ur Squamous Epith Cells NONE SEEN (<= Few) Urine Bacteria Few (None Seen) /HPF Ur Microscopic Review INDICATED Urine Culture Comments INDICATED 12/20/16 Range/Units 21:23 WBC 18.0 H (4.8-10.8) x10^3/uL RBC 4.40 (4.20-5.40) 10^6/uL Hgb 14.1 (12.0-16.0) g/dL Hct 41.5 (37.0-47.0) % MCV 94.2 (81.0-99.0) fL MCH 31.9 H (27.0-31.0) pg MCHC 33.9 (32.0-36.0) g/dL RDW 13.1 (12.0-15.0) % Plt Count 297 (130-450) 10^3/uL MPV 7.4 L (7.9-10.8) fL Neut # (1.5-6.6) 10^3/uL Lymph # (1.5-3.5) 10^3/uL [place] # (0.0-1.0) 10^3/uL Eos # (0.0-0.7) 10^3/uL Baso # (0.0-0.1) 10^3/uL Absolute Nucleated RBC x10^3/uL Nucleated RBC % /100WBC Sodium (135-145) mmol/L Potassium (3.5-5.0) mmol/L Chloride (101-111) mmol/L Carbon Dioxide (21-32) mmol/L Anion Gap (6-13) BUN (6-20) mg/dL Creatinine (0.4-1.0) mg/dL Estimated GFR (MDRD) (>89) Glucose (70-100) mg/dL Calcium (8.5-10.3) mg/dL Total Bilirubin (0.2-1.0) mg/dL AST (10-42) IU/L ALT (10-60) IU/L Alkaline Phosphatase (42-121) IU/L Total Protein (6.7-8.2) g/dL Albumin (3.2-5.5) g/dL Globulin (2.1-4.2) g/dL Albumin/Globulin Ratio (1.0-2.2) Urine Color Urine Clarity (CLEAR) Urine pH (5.0-7.5) PH Ur Specific [place] (1.002-1.030) Urine Protein (NEGATIVE) mg/dL Urine Glucose (UA) (NEGATIVE) mg/dL Urine Ketones (NEGATIVE) mg/dL Urine Occult Blood (NEGATIVE) Urine Nitrite (NEGATIVE) Urine Bilirubin (NEGATIVE) Urine Urobilinogen (NORMAL) E.U./dL Ur Leukocyte Esterase (NEGATIVE) Urine RBC (0-5) /HPF Urine WBC (0-5) /HPF Ur Squamous Epith Cells (<= Few) Urine Bacteria (None Seen) /HPF Ur Microscopic Review Urine Culture Comments - Current Medications Current Medications: Current Medications Generic Name Dose Route Start Last Admin Trade Name Freq PRN Reason Stop Dose Admin Famotidine 50 mls @ 100 mls/hr 12/20/16 21:00 12/21/16 09:44 Pepcid 20 Mg/50 Ml IV Infused BID JHONATAN Infusion Acetaminophen 100 mls @ 400 mls/hr 12/20/16 21:00 12/21/16 09:09 Ofirmev IV Infused Q6H JHONATAN Infusion Ceftriaxone Sodium 1 gm/ 100 mls @ 200 mls/hr 12/21/16 04:00 12/21/16 08:53 Sodium Chloride IV Not Given DAILY JHONATAN Morphine Sulfate/Sodium Chloride 0 mg 12/20/16 20:56 12/20/16 22:51 Morphine Clinical Education Coordinator (Use Clinical Education Coordinator Order Set) IV 50 mg SENIOR DATA ARCHITECT PRN Administration PAIN Protocol Polyethylene Glycol 17 gm 12/21/16 09:00 12/21/16 09:45 Miralax PO Not Given DAILY JHONATAN Sodium Chloride 10 ml 12/20/16 22:00 12/21/16 06:10 Normal Saline Flush 0.9% IVP 10 ml Q8HR JHONATAN Administration Sodium Chloride 10 ml 12/20/16 20:56 12/21/16 04:18 Normal Saline Flush 0.9% IVP 10 ml PRN PRN Administration NEEDED PER PROVIDER ORDERS - Physical Exam Wound/Incisions: positive: Dressing dry and intact, No drainage General Appearance: positive: No acute distress, Alert Eyes Bilateral: positive: Normal inspection, No scleral icterus ENT: positive: Pharynx nml, No signs of dehydration Neck: positive: No JVD Respiratory: positive: Chest non-tender, No respiratory distress, Other ( bronchial breath sounds both bases, ow clear) Cardiovascular: positive: Regular rate & rhythm, No gallop. negative: No murmur Abdomen: positive: Nml bowel sounds, No distention, Tenderness (expected level of alice incisional tenderness, ow abd soft, nontender, no guarding/rebound) Back: positive: Nml inspection. negative: CVA tenderness (R), CVA tenderness (L ) Skin: positive: Color nml, No rash, Warm, Dry Extremities: positive: Nml appearance, No pedal edema. negative: Calf tenderness Neurologic/Psychiatric: positive: Oriented x3 Impression/Plan - Problem List Problem List: 1. Acute abdomen due to hemoperitoneum of unclear etiology, PO Day 1 s/p ex lap , evacuation hematoma, appy, oversewing of right infundibulo pelvic ligament: doing well with stable vs, stable H/H, well hydrated, good analgesia; plan start clear liquids, OOB, decrease IVF; d/c larry. Continue to follow H/H. 2. Pulmonary atelectasis: due to incisional pain; plan IS, OOB. 3. pyuria in pt with hx urinary retention; on empiric rx of UTI pending C&S; will d/c larry today and intermittent cath prn.
--- NOTE | 2016-12-21 10:44 | OPERATIVE REPORT ---
DATE OF SURGERY: 12/20/2016 00:00:00 SURGEON: Ludwin Caba MD. INSPECTOR CHIEF AND ROLLING CHAIR PUSHER: Lavonne Jauregui DO, FACOG. PREOPERATIVE DIAGNOSIS: Abdominal bleeding. POSTOPERATIVE DIAGNOSIS: Abdominal bleeding. PROCEDURES 1. Ligation of the infundibulopelvic ligament. 2. Cauterization of the uterine fundal suture line. FINDINGS 1. Surgically absent bilateral adnexa. 2. Bleeding from the suture line of the fundus of the uterus. 3. Generalized inflammation without any gross findings of endometriosis. SPECIMENS 1. Culture and sensitivity of the pelvis. 2. Biopsy of the right infundibulopelvic ligament. DRAINS 1. Moura catheter to gravity. 2. Prevena wound VAC. ESTIMATED BLOOD LOSS: 10 mL for my portion. COMPLICATIONS: None. BRIEF HISTORY: I was called intraoperatively by Dr. Ludwin Caba to see this patient. She is a 46-year-old female who was recently admitted to the [facility] for 4 days. Apparently she was worked up for abdominal pain and was hospitalized with IV antibiotics. She was then discharged to home despite having continued abdominal pain. The patient then presented to [facility] Emergency Department with complaints of continued abdominal pain. The patient was seen by Dr. Caba, the on-call general surgeon , who decided to operate the patient for suspected appendicitis. Dr. Caba had already proceeded to a diagnostic laparoscopy with conversion to exploratory laparotomy via vertical abdominal incision above and inferior to the umbilicus. The small intestine, as well as the omentum had been adhesed to the right lower quadrant. The intestines and omentum were then freed from the abdomen. Dr. Caba had estimated that there was approximately a liter of blood in the abdomen. There was no asuncion etiology for the patient's pain or bleeding. He did perform an appendectomy and there did not appear to be a asuncion appendicitis, but at most cervicitis of the appendix. It was my understanding that the patient also had multiple medical problems including PCOS that led to a bilateral salpingo-oophorectomy. The patient had cardiac issues and was placed on anticoagulants because of this. Dr. Caba asked me to consult in this case in order to see if any of the bleeding had originated from the reproductive tract. OPERATION IN DETAIL: When I had arrived to the operative suite, the patient had already had a diagnostic laparoscopy and was in the process of her exploratory laparotomy. Dr. Caba had already freed the omentum, as well as small bowel and performed the appendectomy. There was some generalized oozing in the right lower quadrant by the infundibulopelvic ligament. She had a vertical midline incision that extended inferiorly and superiorly to the umbilicus. The omentum and small bowel had been freed, and the appendectomy had already been performed. Upon inspection of the pelvis, there was a small continued ooze from the fundus of the uterus. There appeared to be a suture line similar to the resultant cautery line from the LigaSure. This area had a small constant ooze. Again, the adnexa had already been surgically excised. The pelvic sidewall, in which the right portion of the infundibulopelvic ligament was quite edematous and erythematous. There was no asuncion exudate or gross endometriosis. There also did not appear to be any asuncion malignancy. Cultures and sensitivities, both anaerobic and aerobic were taken of the pelvis. The raw surface of the peritoneum and on top pelvic brim were also oozing. At first I used a 3-0 Vicryl in order to suture ligate the bleeding on the distal portion of the right infundibulopelvic ligament. Hemostasis in that small area had been obtained. Next, I did cauterize the suture line on the fundus of the uterus. The abdomen was then copiously irrigated and again found to have some nonspecific generalized oozing from the raw surface of the right pelvic brim. Surgicel was placed on top of this area and satisfactory hemostasis was obtained. Given that the pelvis was hemostatically stable, there was no gross mass from the uterus nor asuncion endometriosis. From the gynecological point of view, I recommended that we close. I next proceeded to help Dr. Caba close the patient. He closed the peritoneum with 2-0 Vicryl and then the fascia with 0 PDS. The Pal fascia was closed with 0 Vicryl, and the skin was finally closed with oleg. Prevena wound VAC was placed on top of the incision and turned on. All sponge, lap and needle counts were correct x2 as per nurse report. The patient will be admitted to Dr. Caba's service and I will be happy to follow along. Will anticipate awaiting the results of the culture and sensitivity, as well as the pathology report of the biopsy of the infundibulopelvic ligament. JOB #: [id number] EXT JOB #:[id number] MTDJanis
--- NOTE | 2016-12-21 11:52 | PROVIDER PROGRESS NOTE ---
Subjective - Prog Note Date Prog Note Date: 12/21/16 Prog Note Time: 11:47 - Subjective Subjective: Patient is sleeping in bed. SCD's on and working as well as Prevena wound vac. Objective - Vital Signs/Intake & Output Reviewed Vital Signs: Yes Vital Signs: Vital Signs x48h Temp Pulse Resp BP Pulse Ox 12/21/16 10:46 16 96 12/21/16 10:42 16 12/21/16 08:37 97.7 F 79 18 98/64 96 12/21/16 08:11 16 12/21/16 06:00 16 12/21/16 05:00 98.1 F 86 16 101/69 97 12/21/16 04:00 16 Intake & Output: Intake & Output 12/18/16 12/19/16 12/20/16 12/21/16 23:59 23:59 23:59 23:59 Intake Total 200 1459.999 Output Total 175 2100 Balance 25 -640.001 - Objective Abdomen: positive: Other (Prevena wound vac in place and working) - Lab Results Fish Bones: 12/21/16 05:57 12/21/16 05:57 Other Labs: Lab Results x24hrs 12/21/16 12/21/16 12/21/16 Range/Units 05:57 05:57 02:00 WBC 13.0 H (4.8-10.8) x10^3/uL RBC 4.53 (4.20-5.40) 10^6/uL Hgb 14.4 (12.0-16.0) g/dL Hct 42.5 (37.0-47.0) % MCV 93.8 (81.0-99.0) fL MCH 31.8 H (27.0-31.0) pg MCHC 33.9 (32.0-36.0) g/dL RDW 13.0 (12.0-15.0) % Plt Count 304 (130-450) 10^3/uL MPV 7.5 L (7.9-10.8) fL Neut # 11.2 H (1.5-6.6) 10^3/uL Lymph # 0.7 L (1.5-3.5) 10^3/uL [place] # 0.9 (0.0-1.0) 10^3/uL Eos # 0.0 (0.0-0.7) 10^3/uL Baso # 0.1 (0.0-0.1) 10^3/uL Absolute Nucleated RBC 0.00 x10^3/uL Nucleated RBC % 0.0 /100WBC Sodium 137 (135-145) mmol/L Potassium 4.0 (3.5-5.0) mmol/L Chloride 103 (101-111) mmol/L Carbon Dioxide 25 (21-32) mmol/L Anion Gap 9.0 (6-13) BUN 6 (6-20) mg/dL Creatinine 0.6 (0.4-1.0) mg/dL Estimated GFR (MDRD) 107 (>89) Glucose 129 H (70-100) mg/dL Calcium 8.8 (8.5-10.3) mg/dL Total Bilirubin 0.4 (0.2-1.0) mg/dL AST 40 (10-42) IU/L ALT 32 (10-60) IU/L Alkaline Phosphatase 50 (42-121) IU/L Total Protein 6.2 L (6.7-8.2) g/dL Albumin 3.5 (3.2-5.5) g/dL Globulin 2.7 (2.1-4.2) g/dL Albumin/Globulin Ratio 1.3 (1.0-2.2) Urine Color YELLOW Urine Clarity SL. CLOUDY (CLEAR) Urine pH 6.0 (5.0-7.5) PH Ur Specific [place] 1.010 (1.002-1.030) Urine Protein NEGATIVE (NEGATIVE) mg/dL Urine Glucose (UA) NEGATIVE (NEGATIVE) mg/dL Urine Ketones NEGATIVE (NEGATIVE) mg/dL Urine Occult Blood SMALL H (NEGATIVE) Urine Nitrite NEGATIVE (NEGATIVE) Urine Bilirubin NEGATIVE (NEGATIVE) Urine Urobilinogen 0.2 (NORMAL) (NORMAL) E.U./dL Ur Leukocyte Esterase MODERATE H (NEGATIVE) Urine RBC 6-10 H (0-5) /HPF Urine WBC >25 H (0-5) /HPF Ur Squamous Epith Cells NONE SEEN (<= Few) Urine Bacteria Few (None Seen) /HPF Ur Microscopic Review INDICATED Urine Culture Comments INDICATED 12/20/16 Range/Units 21:23 WBC 18.0 H (4.8-10.8) x10^3/uL RBC 4.40 (4.20-5.40) 10^6/uL Hgb 14.1 (12.0-16.0) g/dL Hct 41.5 (37.0-47.0) % MCV 94.2 (81.0-99.0) fL MCH 31.9 H (27.0-31.0) pg MCHC 33.9 (32.0-36.0) g/dL RDW 13.1 (12.0-15.0) % Plt Count 297 (130-450) 10^3/uL MPV 7.4 L (7.9-10.8) fL Neut # (1.5-6.6) 10^3/uL Lymph # (1.5-3.5) 10^3/uL [place] # (0.0-1.0) 10^3/uL Eos # (0.0-0.7) 10^3/uL Baso # (0.0-0.1) 10^3/uL Absolute Nucleated RBC x10^3/uL Nucleated RBC % /100WBC Sodium (135-145) mmol/L Potassium (3.5-5.0) mmol/L Chloride (101-111) mmol/L Carbon Dioxide (21-32) mmol/L Anion Gap (6-13) BUN (6-20) mg/dL Creatinine (0.4-1.0) mg/dL Estimated GFR (MDRD) (>89) Glucose (70-100) mg/dL Calcium (8.5-10.3) mg/dL Total Bilirubin (0.2-1.0) mg/dL AST (10-42) IU/L ALT (10-60) IU/L Alkaline Phosphatase (42-121) IU/L Total Protein (6.7-8.2) g/dL Albumin (3.2-5.5) g/dL Globulin (2.1-4.2) g/dL Albumin/Globulin Ratio (1.0-2.2) Urine Color Urine Clarity (CLEAR) Urine pH (5.0-7.5) PH Ur Specific [place] (1.002-1.030) Urine Protein (NEGATIVE) mg/dL Urine Glucose (UA) (NEGATIVE) mg/dL Urine Ketones (NEGATIVE) mg/dL Urine Occult Blood (NEGATIVE) Urine Nitrite (NEGATIVE) Urine Bilirubin (NEGATIVE) Urine Urobilinogen (NORMAL) E.U./dL Ur Leukocyte Esterase (NEGATIVE) Urine RBC (0-5) /HPF Urine WBC (0-5) /HPF Ur Squamous Epith Cells (<= Few) Urine Bacteria (None Seen) /HPF Ur Microscopic Review Urine Culture Comments Assessment/Plan - Problem List (1) Abdominal pain Impression: 46 yo female, S/p diagnostic laparoscopy, exploratory laparotomy, lysis of adhesions, appendectomy 12/21/2016 Abdominopelvic bleeding of unknown etiology, stable. Unclear as to the nature of the bleeding. Patient is S/p BSO for PCOS, uterus appeared normal. Inflammation with unknown etiology. Will await results of pelvic C&S Stable H/H Routine post-op care Monitor for vaginal bleeding Qualifiers: Abdominal location: right lower quadrant Qualified Code(s): R10.31 - Right lower quadrant pain
[2016-12-21 14:16] LABS: HCT - HEMATOCRIT 35.4 % (37.0-47.0); HGB - HEMOGLOBIN 12.4 g/dL (12.0-16.0); MEAN CORPUSCULAR HEMOGLOBIN 32.4 pg (27.0-31.0); MEAN CORPUSCULAR HGB CONC 34.9 g/dL (32.0-36.0); MEAN CORPUSCULAR VOLUME 92.9 fL (81.0-99.0); MEAN PLATELET VOLUME 7.6 fL (7.9-10.8); RED BLOOD COUNT 3.81 10^6/uL (4.20-5.40); RED CELL DISTRIBUTION WIDTH 13.5 % (12.0-15.0); WHITE BLOOD COUNT 10.8 x10^3/uL (4.8-10.8)
[2016-12-21] MEDS ORDERED: traZODone 50 MG TABLET PO PRN (21:25)
[2016-12-22] MEDS ORDERED: SODIUM CHLORIDE 0.9% 500 ML IV SCH
[2016-12-22 00:16] LABS: HCT - HEMATOCRIT 33.8 % (37.0-47.0); HGB - HEMOGLOBIN 11.7 g/dL (12.0-16.0); MEAN CORPUSCULAR HEMOGLOBIN 32.3 pg (27.0-31.0); MEAN CORPUSCULAR HGB CONC 34.6 g/dL (32.0-36.0); MEAN CORPUSCULAR VOLUME 93.2 fL (81.0-99.0); MEAN PLATELET VOLUME 7.3 fL (7.9-10.8); RED BLOOD COUNT 3.62 10^6/uL (4.20-5.40); RED CELL DISTRIBUTION WIDTH 13.3 % (12.0-15.0); WHITE BLOOD COUNT 10.9 x10^3/uL (4.8-10.8)
[2016-12-22] MEDS: ACETAMINOPHEN 1,000 MG/100 ML 100 ML IV SCH ×2 (04:03→09:15)
[2016-12-22] MEDS: MORPHINE PCA 50 MG IV PRN (04:34)
[2016-12-22] MEDS: LACTATED RINGERS 1,000 ML IV SCH (06:22)
[2016-12-22] MEDS: SODIUM CHLORIDE FLUSH 0.9% 10 ML SYRINGE IVP SCH ×3 (06:22→16:26)
[2016-12-22 07:19] LABS: BASOPHILS # (AUTO) 0.1 10^3/uL (0.0-0.1); BASOPHILS % (AUTO) 0.6 %; EOSINOPHILS # (AUTO) 0.2 10^3/uL (0.0-0.7); EOSINOPHILS % (AUTO) 2.3 %; HCT - HEMATOCRIT 32.8 % (37.0-47.0); HGB - HEMOGLOBIN 11.3 g/dL (12.0-16.0); LYMPHOCYTES # (AUTO) 1.3 10^3/uL (1.5-3.5); LYMPHOCYTES % (AUTO) 12.7 %; MEAN CORPUSCULAR HGB CONC 34.5 g/dL (32.0-36.0); MEAN CORPUSCULAR VOLUME 92.9 fL (81.0-99.0); MEAN PLATELET VOLUME 7.4 fL (7.9-10.8); MONOCYTES # (AUTO) 0.7 10^3/uL (0.0-1.0); MONOCYTES % (AUTO) 6.6 %; NEUTROPHILS # (AUTO) 7.9 10^3/uL (1.5-6.6); NEUTROPHILS % (AUTO) 77.8 %; RED BLOOD COUNT 3.52 10^6/uL (4.20-5.40); RED CELL DISTRIBUTION WIDTH 13.2 % (12.0-15.0); UNCORRECTED WHITE BLOOD COUNT 10.2 x10^3/uL; WHITE BLOOD COUNT 10.2 x10^3/uL (4.8-10.8)
[2016-12-22 07:23] LABS: ALBUMIN/GLOBULIN RATIO 1.2 (1.0-2.2); BILIRUBIN,TOTAL 0.5 mg/dL (0.2-1.0); CALCIUM 7.8 mg/dL (8.5-10.3); CREATININE 0.6 mg/dL (0.4-1.0); POTASSIUM 3.3 mmol/L (3.5-5.0); TOTAL PROTEIN 5.4 g/dL (6.7-8.2)
[2016-12-22] MEDS: FAMOTIDINE 20 MG/50 ML 50 ML IV SCH ×2 (07:45→21:45)
[2016-12-22] MEDS: cefTRIAXone 1 GM in SODIUM CHLORIDE 0.9% MINIBAG 100 ML IV SCH (08:31)
[2016-12-22] MEDS: POLYETHYLENE GLYCOL 3350 17 GM PACKET PO SCH (08:33)
[2016-12-22] MEDS ORDERED: oxyCODONE 5 MG TABLET PO PRN (10:20)
--- NOTE | 2016-12-22 10:26 | PROVIDER PROGRESS NOTE ---
Subjective - General Admit Date: 12/20/16 Procedure Date: 12/20/16 Post Op Days: 2 Procedure Performed: ex lap, appy, evacuation of pelvic hematoma, control hemorrhage - Review of Systems Wound/Incisions: positive: Dressing dry and intact, No drainage General: positive: Appetite (poor) HEENT: positive: No symptoms Pulmonary: positive: No symptoms, Other (difficulty taking deep breaths due to incisional pain) Cardiovascular: positive: No symptoms Gastrointestinal: positive: Abdominal pain (incisional pain well controlled with AUTOMATIC FURNACE OPERATOR but reluctant to use). negative: Nausea, Vomiting, Difficulty swallowing, Flatus, Diarrhea Genitourinary: positive: No symptoms Musculoskeletal: positive: No symptoms Skin: positive: No symptoms Psychiatric: positive: Depression (depressed mood) - Other Other Information/Narrative: Pt reports depressed mood, wants to try solid food and take a shower. Pain under control with AUTOMATIC FURNACE OPERATOR and IV acetaminophen but reluctant to use AUTOMATIC FURNACE OPERATOR. Tolerating clear liquids well with no N/V; voiding well, has ambulated once today with assistance in halls. Objective - Patient Data Reviewed Vital Signs: Yes Vital Signs: Vital Signs x48h Temp Pulse Resp BP Pulse Ox 12/22/16 07:54 36.7 C 79 20 106/74 92 12/22/16 07:00 16 12/22/16 05:00 36.7 C 74 16 98/58 L 96 Weight: Weight 12/20/16 12/21/16 12/22/16 23:59 23:59 23:59 Weight (kg) 74.8 kg Intake & Output: Intake and Output Totals x24h 12/20/16 12/21/16 12/22/16 23:59 23:59 23:59 Intake Total 200 4481.666 2231.667 Output Total 175 2250 1575 Balance 25 2231.666 656.667 - Lab Results Lab Results: 12/22/16 06:55 12/22/16 06:55 Other Lab Results: Lab Results x24hrs 12/22/16 12/22/16 12/22/16 Range/Units 06:55 06:55 00:10 WBC 10.2 10.9 H (4.8-10.8) x10^3/uL RBC 3.52 L 3.62 L (4.20-5.40) 10^6/uL Hgb 11.3 L 11.7 L (12.0-16.0) g/dL Hct 32.8 L 33.8 L (37.0-47.0) % MCV 92.9 93.2 (81.0-99.0) fL MCH 32.0 H 32.3 H (27.0-31.0) pg MCHC 34.5 34.6 (32.0-36.0) g/dL RDW 13.2 13.3 (12.0-15.0) % Plt Count 318 310 (130-450) 10^3/uL MPV 7.4 L 7.3 L (7.9-10.8) fL Neut # 7.9 H (1.5-6.6) 10^3/uL Lymph # 1.3 L (1.5-3.5) 10^3/uL [place] # 0.7 (0.0-1.0) 10^3/uL Eos # 0.2 (0.0-0.7) 10^3/uL Baso # 0.1 (0.0-0.1) 10^3/uL Absolute Nucleated RBC 0.00 x10^3/uL Nucleated RBC % 0.0 /100WBC Sodium 134 L (135-145) mmol/L Potassium 3.3 L (3.5-5.0) mmol/L Chloride 104 (101-111) mmol/L Carbon Dioxide 25 (21-32) mmol/L Anion Gap 5.0 L (6-13) BUN 5 L (6-20) mg/dL Creatinine 0.6 (0.4-1.0) mg/dL Estimated GFR (MDRD) 107 (>89) Glucose 108 H (70-100) mg/dL Calcium 7.8 L (8.5-10.3) mg/dL Total Bilirubin 0.5 (0.2-1.0) mg/dL AST 20 (10-42) IU/L ALT 23 (10-60) IU/L Alkaline Phosphatase 41 L (42-121) IU/L Total Protein 5.4 L (6.7-8.2) g/dL Albumin 2.9 L (3.2-5.5) g/dL Globulin 2.5 (2.1-4.2) g/dL Albumin/Globulin Ratio 1.2 (1.0-2.2) 12/21/16 Range/Units 14:00 WBC 10.8 (4.8-10.8) x10^3/uL RBC 3.81 L (4.20-5.40) 10^6/uL Hgb 12.4 (12.0-16.0) g/dL Hct 35.4 L (37.0-47.0) % MCV 92.9 (81.0-99.0) fL MCH 32.4 H (27.0-31.0) pg MCHC 34.9 (32.0-36.0) g/dL RDW 13.5 (12.0-15.0) % Plt Count 317 (130-450) 10^3/uL MPV 7.6 L (7.9-10.8) fL Neut # (1.5-6.6) 10^3/uL Lymph # (1.5-3.5) 10^3/uL [place] # (0.0-1.0) 10^3/uL Eos # (0.0-0.7) 10^3/uL Baso # (0.0-0.1) 10^3/uL Absolute Nucleated RBC x10^3/uL Nucleated RBC % /100WBC Sodium (135-145) mmol/L Potassium (3.5-5.0) mmol/L Chloride (101-111) mmol/L Carbon Dioxide (21-32) mmol/L Anion Gap (6-13) BUN (6-20) mg/dL Creatinine (0.4-1.0) mg/dL Estimated GFR (MDRD) (>89) Glucose (70-100) mg/dL Calcium (8.5-10.3) mg/dL Total Bilirubin (0.2-1.0) mg/dL AST (10-42) IU/L ALT (10-60) IU/L Alkaline Phosphatase (42-121) IU/L Total Protein (6.7-8.2) g/dL Albumin (3.2-5.5) g/dL Globulin (2.1-4.2) g/dL Albumin/Globulin Ratio (1.0-2.2) - Current Medications Current Medications: Current Medications Generic Name Dose Route Start Last Admin Trade Name Freq PRN Reason Stop Dose Admin Famotidine 50 mls @ 100 mls/hr 12/20/16 21:00 12/22/16 08:51 Pepcid 20 Mg/50 Ml IV Infused BID JHONATAN Infusion Acetaminophen 100 mls @ 400 mls/hr 12/20/16 21:00 12/22/16 09:33 Ofirmev IV Infused Q6H JHONATAN Infusion Ceftriaxone Sodium 1 gm/ 100 mls @ 200 mls/hr 12/21/16 04:00 12/22/16 09:03 Sodium Chloride IV Infused DAILY JHONATAN Infusion Polyethylene Glycol 17 gm 12/21/16 09:00 12/22/16 08:33 Miralax PO 17 gm DAILY JHONATAN Administration Sodium Chloride 10 ml 12/20/16 22:00 12/22/16 06:22 Normal Saline Flush 0.9% IVP 10 ml Q8HR JHONATAN Administration Sodium Chloride 10 ml 12/20/16 20:56 12/21/16 04:18 Normal Saline Flush 0.9% IVP 10 ml PRN PRN Administration NEEDED PER PROVIDER ORDERS - Physical Exam Wound/Incisions: positive: Dressing dry and intact, No drainage General Appearance: positive: No acute distress Eyes Bilateral: positive: Normal inspection, No scleral icterus ENT: positive: Pharynx nml, No signs of dehydration Neck: positive: No JVD Respiratory: positive: Chest non-tender, No respiratory distress, Other ( bronchial breath sounds both bases; increased aeration compared to yesterday). negative: Wheezes, Rales, Rhonchi Cardiovascular: positive: Regular rate & rhythm, No murmur, No gallop Abdomen: positive: Nml bowel sounds, Tenderness (expected postop tenderness maximum near incision, otherwise soft; mild distention) Back: positive: Nml inspection Skin: positive: Color nml, No rash, Warm, Dry Extremities: positive: Non-tender, No pedal edema. negative: Calf tenderness Neurologic/Psychiatric: positive: Oriented x3, Depressed mood/affect Comments/Other: Peritoneal gm stain: 3+ WBC, no organisms, C&S pending; urine C&S pending; path pending. Impression/Plan - Problem List Problem List: PO Day 2 s/p Ex lap, appy, lysis of adhesions, evacuation of hemoperitoneum, and control hemorrhage from right pelvic side wall/infundibulo pelvic ligament, of unclear etiology. Doing well. H/H drifting down likely due to hemodilution; no clinical evidence of active bleeding. Somewhat depressed today, also expected postop after difficult illness and surgery. 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
[2016-12-22] MEDS: KETOROLAC 30 MG/ML VIAL IVP PRN ×3 (10:39→22:34)
[2016-12-22] MEDS: HYDROcod/ACETAM 5/325 MG TABLET PO PRN ×3 (11:18→21:45)
[2016-12-22 16:16] LABS: HCT - HEMATOCRIT 37.2 % (37.0-47.0); HGB - HEMOGLOBIN 12.7 g/dL (12.0-16.0); MEAN CORPUSCULAR HEMOGLOBIN 31.9 pg (27.0-31.0); MEAN CORPUSCULAR HGB CONC 34.1 g/dL (32.0-36.0); MEAN CORPUSCULAR VOLUME 93.5 fL (81.0-99.0); MEAN PLATELET VOLUME 7.2 fL (7.9-10.8); RED BLOOD COUNT 3.97 10^6/uL (4.20-5.40); RED CELL DISTRIBUTION WIDTH 13.7 % (12.0-15.0); WHITE BLOOD COUNT 11.6 x10^3/uL (4.8-10.8)
[2016-12-22] MEDS: SODIUM CHLORIDE FLUSH 0.9% 10 ML SYRINGE IVP PRN ×4 (16:26→22:35)
[2016-12-23] MEDS: SODIUM CHLORIDE FLUSH 0.9% 10 ML SYRINGE IVP SCH ×3 (05:16→21:50)
[2016-12-23 05:43] LABS: BASOPHILS # (AUTO) 0.1 10^3/uL (0.0-0.1); BASOPHILS % (AUTO) 0.9 %; EOSINOPHILS # (AUTO) 0.3 10^3/uL (0.0-0.7); EOSINOPHILS % (AUTO) 4.1 %; HCT - HEMATOCRIT 34.1 % (37.0-47.0); HGB - HEMOGLOBIN 11.5 g/dL (12.0-16.0); LYMPHOCYTES # (AUTO) 2.1 10^3/uL (1.5-3.5); LYMPHOCYTES % (AUTO) 28.1 %; MEAN CORPUSCULAR HEMOGLOBIN 31.8 pg (27.0-31.0); MEAN CORPUSCULAR HGB CONC 33.6 g/dL (32.0-36.0); MEAN CORPUSCULAR VOLUME 94.6 fL (81.0-99.0); MEAN PLATELET VOLUME 6.8 fL (7.9-10.8); MONOCYTES # (AUTO) 0.5 10^3/uL (0.0-1.0); MONOCYTES % (AUTO) 7.2 %; NEUTROPHILS # (AUTO) 4.5 10^3/uL (1.5-6.6); NEUTROPHILS % (AUTO) 59.7 %; NUCLEATED RED BLOOD CELLS AUTO 0.1 /100WBC; RED CELL DISTRIBUTION WIDTH 13.4 % (12.0-15.0); UNCORRECTED WHITE BLOOD COUNT 7.5 x10^3/uL; WHITE BLOOD COUNT 7.5 x10^3/uL (4.8-10.8)
[2016-12-23 05:51] LABS: CALCIUM 8.2 mg/dL (8.5-10.3); CREATININE 0.6 mg/dL (0.4-1.0); POTASSIUM 3.4 mmol/L (3.5-5.0)
[2016-12-23] MEDS: KETOROLAC 30 MG/ML VIAL IVP PRN ×2 (08:15→14:30)
[2016-12-23] MEDS: SODIUM CHLORIDE FLUSH 0.9% 10 ML SYRINGE IVP PRN ×3 (08:15→18:02)
[2016-12-23] MEDS: cefTRIAXone 1 GM in SODIUM CHLORIDE 0.9% MINIBAG 100 ML IV SCH (08:21)
[2016-12-23] MEDS: POLYETHYLENE GLYCOL 3350 17 GM PACKET PO SCH (08:24)
[2016-12-23] MEDS: HYDROcod/ACETAM 5/325 MG TABLET PO PRN ×2 (08:24→14:01)
[2016-12-23] MEDS: FAMOTIDINE 20 MG TABLET PO SCH ×2 (09:41→22:03)
--- NOTE | 2016-12-23 09:48 | PROVIDER PROGRESS NOTE ---
Subjective - General Admit Date: 12/20/16 Procedure Date: 12/20/16 Post Op Days: 3 Procedure Performed: ex lap, appy, evacuation of pelvic hematoma, control hemorrhage - Review of Systems Wound/Incisions: positive: Dressing dry and intact, No drainage. negative: Erythema General: positive: Appetite (poor but tolerating liquids well), Other (c/o gas pains but no flatus or stool, no N/V). negative: Fever, Weakness, Fatigue, Chills, Night sweats HEENT: positive: No symptoms Pulmonary: positive: Other (difficulty taking deep breaths due to incisional pain, but improving) Cardiovascular: positive: No symptoms Gastrointestinal: positive: Abdominal pain (c/o gas pains but incisional pain well controlled.), Constipation. negative: Nausea, Vomiting, Difficulty swallowing, Flatus, Diarrhea Genitourinary: positive: No symptoms (urine C&S shows greater than 100K GNR; ID & S pending). negative: Dysuria, Frequency, Burning, Pain, Urgency, Incontinence, Hematuria, Retention, Flank pain Musculoskeletal: positive: No symptoms Skin: positive: No symptoms Psychiatric: positive: Depression (depressed mood improving) - Other Other Information/Narrative: c/o crampy gas pains but no flatus or stool yet since surgery; no urinary sx. Objective - Patient Data Reviewed Vital Signs: Yes Vital Signs: Vital Signs x48h Temp Pulse Resp BP Pulse Ox 12/23/16 07:43 36.4 C L 86 18 118/76 12/23/16 05:00 36.7 C 74 16 112/66 93 Weight: Weight 12/21/16 12/22/16 12/23/16 23:59 23:59 23:59 Weight (kg) 74.8 kg Intake & Output: Intake and Output Totals x24h 12/21/16 12/22/16 12/23/16 23:59 23:59 23:59 Intake Total 4481.666 3351.667 400 Output Total 2250 2485 200 Balance 2231.666 866.667 200 - Lab Results Lab Results: 12/23/16 05:38 12/23/16 05:38 Other Lab Results: Lab Results x24hrs 12/23/16 12/23/16 12/22/16 Range/Units 05:38 05:38 16:02 WBC 7.5 11.6 H (4.8-10.8) x10^3/uL RBC 3.60 L 3.97 L (4.20-5.40) 10^6/uL Hgb 11.5 L 12.7 (12.0-16.0) g/dL Hct 34.1 L 37.2 (37.0-47.0) % MCV 94.6 93.5 (81.0-99.0) fL MCH 31.8 H 31.9 H (27.0-31.0) pg MCHC 33.6 34.1 (32.0-36.0) g/dL RDW 13.4 13.7 (12.0-15.0) % Plt Count 341 381 (130-450) 10^3/uL MPV 6.8 L 7.2 L (7.9-10.8) fL Neut # 4.5 (1.5-6.6) 10^3/uL Lymph # 2.1 (1.5-3.5) 10^3/uL [place] # 0.5 (0.0-1.0) 10^3/uL Eos # 0.3 (0.0-0.7) 10^3/uL Baso # 0.1 (0.0-0.1) 10^3/uL Absolute Nucleated RBC 0.00 x10^3/uL Nucleated RBC % 0.1 /100WBC Sodium 139 (135-145) mmol/L Potassium 3.4 L (3.5-5.0) mmol/L Chloride 107 (101-111) mmol/L Carbon Dioxide 25 (21-32) mmol/L Anion Gap 7.0 (6-13) BUN 9 (6-20) mg/dL Creatinine 0.6 (0.4-1.0) mg/dL Estimated GFR (MDRD) 107 (>89) Glucose 95 (70-100) mg/dL Calcium 8.2 L (8.5-10.3) mg/dL - Current Medications Current Medications: Current Medications Generic Name Dose Route Start Last Admin Trade Name Freq PRN Reason Stop Dose Admin Acetaminophen/Hydrocodone Bitart 1 - 2 tab 12/22/16 11:00 12/23/16 08:24 [place] 5/325 PO 1 tab Q6H PRN Administration PAIN Famotidine 20 mg 12/23/16 10:00 12/23/16 09:41 Pepcid PO 20 mg BID JHONATAN Administration Glycerin 1 supp 12/23/16 10:00 12/23/16 09:44 [place] 12/23/16 10:01 1 supp ONCE ONE Administration Ceftriaxone Sodium 1 gm/ 100 mls @ 200 mls/hr 12/21/16 04:00 12/23/16 09:39 Sodium Chloride IV Infused DAILY JHONATAN Infusion Ketorolac Tromethamine 30 mg 12/22/16 10:20 12/23/16 08:15 Toradol Inj IVP 12/27/16 10:19 30 mg Q6HR PRN Administration PAIN Polyethylene Glycol 17 gm 12/21/16 09:00 12/23/16 08:24 Miralax PO 17 gm DAILY JHONATAN Administration Sodium Chloride 10 ml 12/20/16 22:00 12/23/16 05:16 Normal Saline Flush 0.9% IVP 10 ml Q8HR JHONATAN Administration Sodium Chloride 10 ml 12/20/16 20:56 12/23/16 08:15 Normal Saline Flush 0.9% IVP 10 ml PRN PRN Administration NEEDED PER PROVIDER ORDERS Trazodone HCl 50 mg 12/21/16 21:25 12/23/16 00:28 Desyrel PO 50 mg QPM PRN Administration Insomnia - Physical Exam Wound/Incisions: positive: Dressing dry and intact, No drainage. negative: Erythema General Appearance: positive: No acute distress, Alert, Mild distress (c/o abd gas pains) Eyes Bilateral: positive: Normal inspection ENT: positive: ENT inspection nml, Pharynx nml, No signs of dehydration Neck: positive: No JVD Respiratory: positive: Chest non-tender, Rales (fine bibasilar rales, partially clear with cough) Cardiovascular: positive: Regular rate & rhythm Abdomen: positive: Nml bowel sounds, No distention, Tenderness (mild, expected incisional tenderness, ow benign abdomen). negative: Guarding, Rebound Back: positive: Nml inspection Skin: positive: Color nml, No rash, Warm, Dry Extremities: positive: Nml appearance, No pedal edema. negative: Calf tenderness Neurologic/Psychiatric: positive: Oriented x3, Depressed mood/affect (improving) Comments/Other: urine C&S shows greater than 100K GNR; ID & S pending peritoneal C&S: few colonies of coag neg staph on aerobic culture, prob contaminant; anaerobic culture still pending. Path still pending Impression/Plan - Problem List Problem List: 1. Satisfactory postop course PO day 3; having postop gas pains/mild ileus/ constipation ow doing well. Will continue Miralax, add rectal suppository, increase activity; hopefully home tomorrow if continues to improve. 2. Bacteriuria, doubt UTI, being empirically treated; can stop antibiotics now. 3. CAD, asymptomatic; resume meds per Dr. Earl. Would still hold Plavix pending cardiology reevaluation.
[2016-12-23] MEDS ORDERED: GLYCERIN ADULT SUPP PR ONE (10:00)
[2016-12-23] MEDS ORDERED: MAGNESIUM CITRATE 296 ML BOTTLE PO ONE (13:19)
[2016-12-23] MEDS: CHOLECALCIFEROL 1,000 UNIT TABLET PO SCH ×2 (13:34→13:59)
[2016-12-23] MEDS: ASPIRIN EC 81 MG TABLET PO SCH (13:36)
[2016-12-23] MEDS: MULTIVITAMIN TABLET PO SCH (13:36)
[2016-12-23] MEDS: EZETIMIBE 10 MG TABLET PO SCH (13:37)
[2016-12-23] MEDS: FLUTICASONE NASAL SPRAY NAS SCH (13:37)
[2016-12-23] MEDS: MAGNESIUM HYDROXIDE 2,400 MG/30 ML UDC PO ONE ×2 (13:38→14:00)
[2016-12-23] MEDS: FAMOTIDINE 20 MG/50 ML 50 ML IV SCH (14:01)
[2016-12-23] MEDS: ONDANSETRON 4 MG/2 ML VIAL IVP PRN (18:01)
[2016-12-23] MEDS ORDERED: GI COCKTAIL 120 ML BOTTLE PO SCH (18:39)
[2016-12-23] MEDS: NITROGLYCERIN SL 0.4 MG TABLET SL PRN ×2 (18:40→19:36)
[2016-12-23] MEDS: METOCLOPRAMIDE 10 MG/2 ML VIAL IVP PRN (19:23)
[2016-12-23] MEDS ORDERED: MORPHINE 2 MG/ML SYRINGE IVP PRN (19:37)
[2016-12-23] MEDS ORDERED: LORazepam 2 MG/ML SYRINGE IVP PRN ×3 (19:38→21:49)
[2016-12-23 19:59] LABS: BUN - BLOOD UREA NITROGEN 10 mg/dL (6-20); CARBON DIOXIDE - CO2 20 mmol/L (21-32); CHLORIDE 104 mmol/L (101-111); CREATININE 0.7 mg/dL (0.4-1.0); GFR - MDRD 90 (>89); GLUCOSE 130 mg/dL (70-100); POTASSIUM 3.1 mmol/L (3.5-5.0); SODIUM 137 mmol/L (135-145)
[2016-12-23] MEDS ORDERED: IOPAMIDOL-300 100 ML VIAL ONE (20:21)
[2016-12-23] MEDS ORDERED: IOPAMIDOL-300 100 ML VIAL IVP ONE (21:08)
--- NOTE | 2016-12-23 21:27 | CT Preliminary Report ---
Exam: CT CHEST ANGIO (AORTA) IMPRESSION: 1. Negative for acute pulmonary embolism. No thoracic aortic aneurysm or dissection. 2. Multiple new dilated small bowel loops in the upper abdomen with multiple air-fluid levels. Dilate d fluid-filled stomach. Concerning for a small bowel obstruction. 3. Low lung volumes with bilateral lower lobe consolidation, suspicious for dependent atelectasis. [facility] SITE ID: [id number]
--- NOTE | 2016-12-23 21:29 | CT Report ---
EXAM: CT ANGIOGRAM CHEST EXAM DATE: 12/23/2016 09:10 PM. CLINICAL HISTORY: CP/throat pain, R/O PE vs dissection. COMPARISON: 12/20/2016. TECHNIQUE: Routine helical imaging was performed through the chest in the pulmonary arterial phase. I V Contrast: 80 cc Isovue 300 IV. Reconstructions: Coronal 3-D MIP reconstructions.Sagittal and hernandes l. In accordance with CT protocol optimization, one or more of the following dose reduction techniques w ere utilized for this exam: automated exposure control, adjustment of mA and/or KV based on patient s ize, or use of iterative reconstructive technique. FINDINGS: Pulmonary Arteries: Diagnostic quality: Adequate through the segmental arteries. Negative for pulmonary embolism. The main pulmonary artery is normal in size. Lungs/Pleura: There is bilateral lower lobe pulmonary consolidation. The lung volumes are low. There is no nondependent consolidation. No central endobronchial obstructing process. Negative for cavitary lung lesion and pneumothorax. No pleural effusion. Mediastinum: The heart size is within normal limits. There are coronary artery calcifications. There is no significant pericardial effusion. Thoracic Aorta: No thoracic aortic aneurysm or dissection. Upper Abdomen: The stomach is fluid-filled and dilated. There are multiple new dilated loops of small bowel in the upper abdomen. The small bowel loops measure up to 4.5 cm in diameter with air-fluid le vels. No free air seen. Other: None. IMPRESSION: 1. Negative for acute pulmonary embolism. No thoracic aortic aneurysm or dissection. 2. Multiple new dilated small bowel loops in the upper abdomen with multiple air-fluid levels. Dilate d fluid-filled stomach. Concerning for a small bowel obstruction. 3. Low lung volumes with bilateral lower lobe consolidation, suspicious for dependent atelectasis. [facility] Referring Provider Line: [phone] SITE ID: [id number]
[2016-12-23] MEDS: POTASSIUM CHLOR 10 MEQ/100 ML 10 MEQ/100 ML BAG IV SCH ×2 (21:49→23:03)
[2016-12-23] MEDS ORDERED: PROMETHAZINE INJ 25 MG in SODIUM CHLORIDE 0.9% 50 ML IV PRN (21:50)
--- NOTE | 2016-12-23 21:54 | PROVIDER PROGRESS NOTE ---
Assessment/Plan - Problem List (1) Throat pain Assessment/Plan: Possible anginal equivalent. EKG ordered STAT and Pt would only sit upright at edge of bed due to SOB, while having EKG. EKG showed new sinus tachy and new inf-lat ST-T abn. Will move pt to ICU and obtain troponins, BMP, Mg, Ca, CXR and CTA of chest. (2) Appendicitis Qualifiers: Appendicitis type: acute appendicitis Acute appendicitis type: with localized peritonitis Qualified Code(s): K35.3 - Acute appendicitis with localized peritonitis Assessment/Plan: Pt has had no BM yet (until moved to ICU). Will advance diet if OK with surgery. Meds given for possible nausea. - Current Meds Current Meds: Current Medications Generic Name Dose Route Start Last Admin Trade Name Freq PRN Reason Stop Dose Admin Acetaminophen/Hydrocodone Bitart 1 - 2 tab 12/22/16 11:00 12/23/16 14:01 [place] 5/325 PO 1 tab Q6H PRN Administration PAIN Aspirin 81 mg 12/23/16 13:00 12/23/16 13:36 Ecotrin PO 81 mg DAILY JHONATAN Administration Ezetimibe 10 mg 12/23/16 13:00 12/23/16 13:37 Zetia PO 10 mg DAILY JHONATAN Administration Famotidine 20 mg 12/23/16 10:00 12/23/16 09:41 Pepcid PO 20 mg BID JHONATAN Administration Fluticasone Propionate 1 sprays 12/23/16 13:00 12/23/16 13:37 Flonase MITUL 1 spr DAILY JHONATAN Administration Potassium Chloride 10 meq in 100 mls @ 100 mls/hr 12/23/16 22:00 12/23/16 21: 49 Potassium Chloride IV 12/24/16 01:59 100 mls/hr Q1H JHONATAN Administration Protocol Ketorolac Tromethamine 30 mg 12/22/16 10:20 12/23/16 14:30 Toradol Inj IVP 12/27/16 10:19 30 mg Q6HR PRN Administration PAIN Metoclopramide HCl 5 mg 12/23/16 17:48 12/23/16 19:23 Reglan Inj IVP 5 mg Q6HR PRN Administration Nausea / Vomiting Morphine Sulfate 2 mg 12/23/16 19:37 12/23/16 19:42 Morphine IVP 2 mg Q2H PRN Administration PAIN Multi-Ingredient Mouthwash/Gargle 30 ml 12/23/16 18:39 12/23/16 21:25 PO 12/23/16 23:59 30 ml ONCE JHONATAN Administration Multivitamins 1 tab 12/23/16 13:00 12/23/16 13:36 Theragran PO 1 tab DAILY JHONATAN Administration Nitroglycerin 0.4 mg 12/23/16 18:37 12/23/16 19:36 Nitrostat SL 0.4 mg Q5MIN PRN Administration Chest Pain Ondansetron HCl 4 mg 12/20/16 20:56 12/23/16 18:01 Zofran Inj IVP 4 mg Q6H PRN Administration Nausea / Vomiting Polyethylene Glycol 17 gm 12/21/16 09:00 12/23/16 08:24 Miralax PO 17 gm DAILY JHONATAN Administration Sodium Chloride 10 ml 12/20/16 22:00 12/23/16 21:50 Normal Saline Flush 0.9% IVP 10 ml Q8HR JHONATAN Administration Sodium Chloride 10 ml 12/20/16 20:56 12/23/16 18:02 Normal Saline Flush 0.9% IVP 20 ml PRN PRN Administration NEEDED PER PROVIDER ORDERS Trazodone HCl 50 mg 12/21/16 21:25 12/23/16 00:28 Desyrel PO 50 mg QPM PRN Administration Insomnia - Lab Result Fish Bone Diagrams: 12/24/16 04:07 12/24/16 04:07 - Additional Planning My Orders: My Active Orders 12/23/16 MRSA PCR, CCU ADMIT [RAPID] Routine 12/23/16 10:00 Famotidine [Pepcid] 20 mg PO BID 12/23/16 13:00 Aspirin EC [Ecotrin] 81 mg PO DAILY Ezetimibe [Zetia] 10 mg PO DAILY Fluticasone [Flonase] 1 sprays MTIUL DAILY Multivitamin [Theragran] 1 tab PO DAILY 12/23/16 17:48 Metoclopramide Inj [Reglan Inj] 5 mg IVP Q6HR PRN 12/23/16 18:37 Nitroglycerin [Nitrostat] 0.4 mg SL Q5MIN PRN 12/23/16 18:38 EKG - Electrocardiogram [RC] .ONCE 12/23/16 18:39 Gi Cocktail 30 ml PO ONCE 12/23/16 19:04 Transfer [Admit \ Transfer \ Status] [RC] .ONCE 12/23/16 19:37 Morphine Inj [Morphine] 2 mg IVP Q2H PRN 12/23/16 20:30 Chest 1 View [XR] Stat 12/24/16 08:00 EKG - Electrocardiogram [RC] .ONCE 12/24/16 09:00 Loratadine [Claritin] 10 mg PO DAILY Subjective - Subjective Patient Reports: Other (Pt c/o throat burning like acid, then burping, then throat pain 12/04 with SOB late this afternoon.) Nursing Reports: Other (No emesis. No better with Reglan) Objective Vital Signs: Vital Signs - 24 hr 12/23/16 12/23/16 12/23/16 00:01 05:00 07:43 Temperature 36.9 C 36.7 C 36.4 C L Heart Rate Heart Rate [ 89 74 86 Brachial] Respiratory 16 16 18 Rate Blood Pressure Blood Pressure [Left Brachial artery] Blood Pressure 108/65 112/66 118/76 [Right Brachial artery] O2 Saturation 93 93 12/23/16 12/23/16 12/23/16 13:00 15:31 18:40 Temperature 37.0 C 36.6 C Heart Rate 115 H Heart Rate [ 95 107 H Brachial] Respiratory 16 17 Rate Blood Pressure 145/80 H Blood Pressure [Left Brachial artery] Blood Pressure 126/90 H 104/77 [Right Brachial artery] O2 Saturation 100 92 12/23/16 12/23/16 12/23/16 18:42 19:00 19:15 Temperature 36.5 C Heart Rate Heart Rate [ 141 H 108 H 116 H Brachial] Respiratory 40 H 32 H Rate Blood Pressure Blood Pressure [Left Brachial artery] Blood Pressure 108/77 117/74 117/74 [Right Brachial artery] O2 Saturation 91 L 97 96 12/23/16 12/23/16 12/23/16 19:30 19:36 19:45 Temperature Heart Rate 128 H Heart Rate [ 116 H 140 H Brachial] Respiratory 22 24 Rate Blood Pressure 145/89 H Blood Pressure [Left Brachial artery] Blood Pressure 148/105 H 145/84 H [Right Brachial artery] O2 Saturation 97 92 12/23/16 12/23/16 20:00 21:00 Temperature 36.5 C Heart Rate Heart Rate [ 96 105 H Brachial] Respiratory 18 25 H Rate Blood Pressure Blood Pressure 111/85 H [Left Brachial artery] Blood Pressure 118/93 H [Right Brachial artery] O2 Saturation 97 98 Oxygen O2 Source Nasal cannula I&O (Last 24 Hrs): Intake and Output Totals x24h 12/21/16 12/22/16 12/23/16 23:59 23:59 23:59 Intake Total 4481.666 3351.667 640 Output Total 2250 2485 200 Balance 2231.666 866.667 440 General: Severe distress, Other (Pt standing at side of bed, leaning over bed table, hyperventilating.) HEENT: Mucous membr. moist/pink Neck: Supple Neuro: Alert Cardiovascular: Regular rate, No murmurs Respiratory: Breath sounds nml, Other (RR 24) Abdomen: Soft Extremities: No edema, No tenderness/swelling - Results Results: Laboratory Results WBC 7.5 x10^3/uL (4.8-10.8) 12/23/16 05:38 RBC 3.60 10^6/uL (4.20-5.40) L 12/23/16 05:38 Hgb 11.5 g/dL (12.0-16.0) L 12/23/16 05:38 Hct 34.1 % (37.0-47.0) L 12/23/16 05:38 MCV 94.6 fL (81.0-99.0) 12/23/16 05:38 MCH 31.8 pg (27.0-31.0) H 12/23/16 05:38 MCHC 33.6 g/dL (32.0-36.0) 12/23/16 05:38 RDW 13.4 % (12.0-15.0) 12/23/16 05:38 Plt Count 341 10^3/uL (130-450) 12/23/16 05:38 MPV 6.8 fL (7.9-10.8) L 12/23/16 05:38 Neut # 4.5 10^3/uL (1.5-6.6) 12/23/16 05:38 Lymph # 2.1 10^3/uL (1.5-3.5) 12/23/16 05:38 [place] # 0.5 10^3/uL (0.0-1.0) 12/23/16 05:38 Eos # 0.3 10^3/uL (0.0-0.7) 12/23/16 05:38 Baso # 0.1 10^3/uL (0.0-0.1) 12/23/16 05:38 Absolute Nucleated RBC 0.00 x10^3/uL 12/23/16 05:38 Nucleated RBC % 0.1 /100WBC 12/23/16 05:38 D-Dimer > 1050.0 ng/mL (200.0-255.0) H 12/23/16 19:43 Sodium 137 mmol/L (135-145) 12/23/16 19:44 Potassium 3.1 mmol/L (3.5-5.0) L 12/23/16 19:44 Chloride 104 mmol/L (101-111) 12/23/16 19:44 Carbon Dioxide 20 mmol/L (21-32) L 12/23/16 19:44 Anion Gap 13.0 (6-13) 12/23/16 19:44 BUN 10 mg/dL (6-20) 12/23/16 19:44 Creatinine 0.7 mg/dL (0.4-1.0) 12/23/16 19:44 Estimated GFR (MDRD) 90 (>89) 12/23/16 19:44 Glucose 130 mg/dL (70-100) H 12/23/16 19:44 Calcium 9.0 mg/dL (8.5-10.3) 12/23/16 19:44 Ionized Calcium NO 12/23/16 19:44 Magnesium 2.0 mg/dL (1.7-2.8) 12/23/16 19:44 Total Bilirubin 0.5 mg/dL (0.2-1.0) 12/22/16 06:55 AST 20 IU/L (10-42) 12/22/16 06:55 ALT 23 IU/L (10-60) 12/22/16 06:55 Alkaline Phosphatase 41 IU/L (42-121) L 12/22/16 06:55 Troponin I < 0.04 ng/mL (<0.49) 12/23/16 19:43 Total Protein 5.4 g/dL (6.7-8.2) L 12/22/16 06:55 Albumin 2.9 g/dL (3.2-5.5) L 12/22/16 06:55 Globulin 2.5 g/dL (2.1-4.2) 12/22/16 06:55 Albumin/Globulin Ratio 1.2 (1.0-2.2) 12/22/16 06:55 Lipase 29 U/L (22-51) 12/20/16 12:22 Serum HCG, Qual NEGATIVE 12/20/16 12:22 Urine Color YELLOW 12/21/16 02:00 Urine Clarity SL. CLOUDY (CLEAR) 12/21/16 02:00 Urine pH 6.0 PH (5.0-7.5) 12/21/16 02:00 Ur Specific [place] 1.010 (1.002-1.030) 12/21/16 02:00 Urine Protein NEGATIVE mg/dL (NEGATIVE) 12/21/16 02:00 Urine Glucose (UA) NEGATIVE mg/dL (NEGATIVE) 12/21/16 02:00 Urine Ketones NEGATIVE mg/dL (NEGATIVE) 12/21/16 02:00 Urine Occult Blood SMALL (NEGATIVE) H 12/21/16 02:00 Urine Nitrite NEGATIVE (NEGATIVE) 12/21/16 02:00 Urine Bilirubin NEGATIVE (NEGATIVE) 12/21/16 02:00 Urine Urobilinogen 0.2 (NORMAL) E.U./dL (NORMAL) 12/21/16 02:00 Ur Leukocyte Esterase MODERATE (NEGATIVE) H 12/21/16 02:00 Urine RBC 6-10 /HPF (0-5) H 12/21/16 02:00 Urine WBC >25 /HPF (0-5) H 12/21/16 02:00 Ur Squamous Epith Cells NONE SEEN (<= Few) 12/21/16 02:00 Urine Bacteria Few /HPF (None Seen) 12/21/16 02:00 Ur Microscopic Review INDICATED 12/21/16 02:00 Urine Culture Comments INDICATED 12/21/16 02:00 Blood Type A POSITIVE 12/20/16 12:22 Blood Type Recheck A POSITIVE 12/20/16 19:27 Antibody Screen NEGATIVE 12/20/16 12:22 Crossmatch IS Only See Detail 12/20/16 12:22 - Procedures Procedures: Procedures COLONOSCOPY (08/10/13)
--- NOTE | 2016-12-23 22:53 | XRAY Preliminary Report ---
Exam: XR CHEST 1 VIEW IMPRESSION: Very low lung volumes. No acute cardiopulmonary disease seen. [facility] SITE ID: [id number]
--- NOTE | 2016-12-23 22:56 | XRAY Report ---
EXAM: CHEST RADIOGRAPHY EXAM DATE: 12/23/2016 08:43 PM. CLINICAL HISTORY: Chest pain/throat pain. COMPARISON: Chest 10/25/2015. TECHNIQUE: 1 view. FINDINGS: Lungs/Pleura: No focal opacities evident. No pleural effusion. No pneumothorax. Very low lung volumes . Mediastinum: Within exam limitations, the cardiomediastinal contour is normal. IMPRESSION: Very low lung volumes. No acute cardiopulmonary disease seen. [facility] Referring Provider Line: [phone] SITE ID: [id number]
[2016-12-24] MEDS: POTASSIUM CHLOR 10 MEQ/100 ML 10 MEQ/100 ML BAG IV SCH ×2 (00:06→01:15)
[2016-12-24] MEDS: ONDANSETRON 4 MG/2 ML VIAL IVP PRN (01:38)
[2016-12-24] MEDS: SODIUM CHLORIDE 0.9% 1,000 ML IV SCH ×2 (03:16→16:35)
[2016-12-24 04:28] LABS: BASOPHILS # (AUTO) 0.1 10^3/uL (0.0-0.1); BASOPHILS % (AUTO) 0.6 %; EOSINOPHILS # (AUTO) 0.1 10^3/uL (0.0-0.7); HCT - HEMATOCRIT 35.9 % (37.0-47.0); HGB - HEMOGLOBIN 12.4 g/dL (12.0-16.0); LYMPHOCYTES % (AUTO) 9.9 %; MEAN CORPUSCULAR HEMOGLOBIN 32.2 pg (27.0-31.0); MEAN CORPUSCULAR HGB CONC 34.5 g/dL (32.0-36.0); MEAN CORPUSCULAR VOLUME 93.3 fL (81.0-99.0); MEAN PLATELET VOLUME 7.1 fL (7.9-10.8); MONOCYTES # (AUTO) 0.6 10^3/uL (0.0-1.0); MONOCYTES % (AUTO) 5.7 %; NEUTROPHILS # (AUTO) 8.7 10^3/uL (1.5-6.6); NEUTROPHILS % (AUTO) 82.8 %; RED BLOOD COUNT 3.85 10^6/uL (4.20-5.40); RED CELL DISTRIBUTION WIDTH 13.6 % (12.0-15.0); UNCORRECTED WHITE BLOOD COUNT 10.5 x10^3/uL; WHITE BLOOD COUNT 10.5 x10^3/uL (4.8-10.8)
[2016-12-24 04:29] LABS: CALCIUM, IONIZED 1.06 mmol/L (1.15-1.33); VBG PH 7.489 (7.31-7.41)
[2016-12-24 04:42] LABS: MAGNESIUM 2.2 mg/dL (1.7-2.8); PHOSPHORUS 3.6 mg/dL (2.5-4.6)
[2016-12-24 04:53] LABS: ALBUMIN/GLOBULIN RATIO 1.2 (1.0-2.2); BILIRUBIN,TOTAL 0.6 mg/dL (0.2-1.0); CALCIUM 8.5 mg/dL (8.5-10.3); CREATININE 0.7 mg/dL (0.4-1.0); TOTAL PROTEIN 5.9 g/dL (6.7-8.2)
[2016-12-24] MEDS: METOCLOPRAMIDE 10 MG/2 ML VIAL IVP PRN ×2 (06:23→11:56)
[2016-12-24] MEDS: SODIUM CHLORIDE FLUSH 0.9% 10 ML SYRINGE IVP SCH ×3 (06:25→20:40)
[2016-12-24] MEDS: FAMOTIDINE 20 MG/50 ML 50 ML IV SCH ×2 (08:46→20:40)
[2016-12-24] MEDS: LORATADINE 10 MG TABLET PO SCH (11:16)
[2016-12-24] MEDS: MULTIVITAMIN TABLET PO SCH (11:17)
[2016-12-24] MEDS: POLYETHYLENE GLYCOL 3350 17 GM PACKET PO SCH (11:44)
[2016-12-24] MEDS: EZETIMIBE 10 MG TABLET PO SCH (12:36)
[2016-12-24] MEDS: ASPIRIN EC 81 MG TABLET PO SCH (12:36)
[2016-12-24] MEDS: FLUTICASONE NASAL SPRAY NAS SCH (12:36)
[2016-12-24] MEDS: LORazepam 2 MG/ML SYRINGE IVP PRN ×4 (13:20→19:56)
--- NOTE | 2016-12-24 16:45 | PROVIDER PROGRESS NOTE ---
Assessment/Plan - Problem List (1) Throat pain Assessment/Plan: W/U for PE, DC and aortic dissection were neg yesterday. EKG today shows new anterior T wave inversions. Pt will need F/U with her [facility] as an outpt soon, for evaluation of abnormal EKG and throat pain (which may have been her anginal equivalent). This was discussed with Pt and in the room. (2) Appendicitis Qualifiers: Appendicitis type: acute appendicitis Acute appendicitis type: with localized peritonitis Qualified Code(s): K35.3 - Acute appendicitis with localized peritonitis Assessment/Plan: Pt did have several BMs yesterday and vomited once overnight. DCh will depend on surgery decision (3) Anxiety Assessment/Plan: Part of yesterday's SOB and elevated RR may have been hypervetilating with a "panic attack", which is what the thought she was having. Ativan has been restarted - Current Meds Current Meds: Current Medications Generic Name Dose Route Start Last Admin Trade Name Freq PRN Reason Stop Dose Admin Acetaminophen/Hydrocodone Bitart 1 - 2 tab 12/22/16 11:00 12/23/16 14:01 [place] 5/325 PO 1 tab Q6H PRN Administration PAIN Aspirin 81 mg 12/23/16 13:00 12/24/16 12:36 Ecotrin PO Not Given DAILY JHONATAN Ezetimibe 10 mg 12/23/16 13:00 12/24/16 12:36 Zetia PO Not Given DAILY JHONATAN Fluticasone Propionate 1 sprays 12/23/16 13:00 12/24/16 12:36 Flonase MITUL Not Given DAILY JHONATAN Famotidine 50 mls @ 100 mls/hr 12/24/16 09:00 12/24/16 09:38 Pepcid 20 Mg/50 Ml IV Infused BID JHONATAN Infusion Sodium Chloride 1,000 mls @ 83.333 mls/hr 12/24/16 03:00 12/24/16 16:35 Normal Saline 0.9% IV 83.333 mls/hr .Q12H JHONATAN Administration Ketorolac Tromethamine 30 mg 12/22/16 10:20 12/23/16 14:30 Toradol Inj IVP 12/27/16 10:19 30 mg Q6HR PRN Administration PAIN Loratadine 10 mg 12/24/16 09:00 12/24/16 11:16 Claritin PO Not Given DAILY JHONATAN Lorazepam 0.5 mg 12/24/16 13:07 12/24/16 15:16 Ativan Inj IVP 0.5 mg Q2HR PRN Administration Anxiety Metoclopramide HCl 5 mg 12/23/16 17:48 12/24/16 11:56 Reglan Inj IVP 5 mg Q6HR PRN Administration Nausea / Vomiting Morphine Sulfate 2 mg 12/23/16 19:37 12/23/16 19:42 Morphine IVP 2 mg Q2H PRN Administration PAIN Multivitamins 1 tab 12/23/16 13:00 12/24/16 11:17 Theragran PO Not Given DAILY JHONATAN Nitroglycerin 0.4 mg 12/23/16 18:37 12/23/16 19:36 Nitrostat SL 0.4 mg Q5MIN PRN Administration Chest Pain Ondansetron HCl 4 mg 12/20/16 20:56 12/24/16 01:38 Zofran Inj IVP 4 mg Q6H PRN Administration Nausea / Vomiting Polyethylene Glycol 17 gm 12/21/16 09:00 12/24/16 11:44 Miralax PO Not Given DAILY JHONATAN Sodium Chloride 10 ml 12/20/16 22:00 12/24/16 15:17 Normal Saline Flush 0.9% IVP 10 ml Q8HR JHONATAN Administration Sodium Chloride 10 ml 12/20/16 20:56 12/23/16 18:02 Normal Saline Flush 0.9% IVP 20 ml PRN PRN Administration NEEDED PER PROVIDER ORDERS Trazodone HCl 50 mg 12/21/16 21:25 12/23/16 00:28 Desyrel PO 50 mg QPM PRN Administration Insomnia - Lab Result [place] Diagrams: 12/24/16 04:07 12/24/16 04:07 - Additional Planning My Orders: My Active Orders 12/23/16 17:48 Metoclopramide Inj [Reglan Inj] 5 mg IVP Q6HR PRN 12/23/16 18:37 Nitroglycerin [Nitrostat] 0.4 mg SL Q5MIN PRN 12/23/16 19:37 Morphine Inj [Morphine] 2 mg IVP Q2H PRN 12/24/16 09:00 Loratadine [Claritin] 10 mg PO DAILY 12/24/16 13:07 LORazepam INJ [Ativan Inj] 0.5 mg IVP Q2HR PRN Subjective - Subjective Patient Reports: Feeling Better Nursing Reports: Other (Pt anxious, wants her Ativan. Pt wants to go home, feels nervous here.) Objective Vital Signs: Vital Signs - 24 hr 12/23/16 12/23/16 12/23/16 18:40 18:42 19:00 Temperature 36.5 C Heart Rate 115 H Heart Rate [ 141 H 108 H Brachial] Respiratory 40 H 32 H Rate Blood Pressure 145/80 H Blood Pressure [Left Brachial artery] Blood Pressure 108/77 117/74 [Right Brachial artery] O2 Saturation 91 L 97 12/23/16 12/23/16 12/23/16 19:15 19:30 19:36 Temperature Heart Rate 128 H Heart Rate [ 116 H 116 H Brachial] Respiratory 22 Rate Blood Pressure 145/89 H Blood Pressure [Left Brachial artery] Blood Pressure 117/74 148/105 H [Right Brachial artery] O2 Saturation 96 97 12/23/16 12/23/16 12/23/16 19:45 20:00 21:00 Temperature 36.5 C Heart Rate Heart Rate [ 140 H 96 105 H Brachial] Respiratory 24 18 25 H Rate Blood Pressure Blood Pressure 111/85 H [Left Brachial artery] Blood Pressure 145/84 H 118/93 H [Right Brachial artery] O2 Saturation 92 97 98 12/23/16 12/23/16 12/24/16 22:00 23:00 00:00 Temperature 37.0 C Heart Rate Heart Rate [ 100 95 95 Brachial] Respiratory 23 22 22 Rate Blood Pressure Blood Pressure 118/96 H 113/88 H 118/94 H [Left Brachial artery] Blood Pressure [Right Brachial artery] O2 Saturation 96 96 96 12/24/16 12/24/16 12/24/16 01:00 02:00 03:00 Temperature Heart Rate Heart Rate [ 84 98 89 Brachial] Respiratory 20 17 20 Rate Blood Pressure Blood Pressure 119/89 H 123/93 H 107/60 [Left Brachial artery] Blood Pressure [Right Brachial artery] O2 Saturation 98 96 95 12/24/16 12/24/16 12/24/16 04:00 05:00 06:00 Temperature Heart Rate Heart Rate [ 85 80 111 H Brachial] Respiratory 24 23 22 Rate Blood Pressure Blood Pressure [Left Brachial artery] Blood Pressure 104/78 116/82 H 113/84 H [Right Brachial artery] O2 Saturation 94 95 96 12/24/16 12/24/16 12/24/16 07:00 08:00 09:00 Temperature 36.7 C Heart Rate Heart Rate [ 96 89 101 H Brachial] Respiratory 23 15 20 Rate Blood Pressure Blood Pressure [Left Brachial artery] Blood Pressure 120/93 H 106/74 122/89 H [Right Brachial artery] O2 Saturation 95 96 96 12/24/16 12/24/16 12/24/16 10:00 11:00 12:00 Temperature 36.7 C Heart Rate Heart Rate [ 99 105 H 105 H Brachial] Respiratory 20 18 22 Rate Blood Pressure Blood Pressure [Left Brachial artery] Blood Pressure 116/86 H 118/78 118/92 H [Right Brachial artery] O2 Saturation 100 93 93 12/24/16 12/24/16 12/24/16 13:00 14:00 15:00 Temperature Heart Rate Heart Rate [ 102 H 102 H 104 H Brachial] Respiratory 22 24 24 Rate Blood Pressure Blood Pressure [Left Brachial artery] Blood Pressure 129/92 H 131/94 H 138/94 H [Right Brachial artery] O2 Saturation 94 12/24/16 16:00 Temperature Heart Rate Heart Rate [ 102 H Brachial] Respiratory 20 Rate Blood Pressure Blood Pressure [Left Brachial artery] Blood Pressure [Right Brachial artery] O2 Saturation Oxygen O2 Source Room air I&O (Last 24 Hrs): Intake and Output Totals x24h 12/22/16 12/23/16 12/24/16 23:59 23:59 23:59 Intake Total 3351.562 033 5984 Output Total 2485 600 1600 Balance 866.667 140 -150 General: Alert, Oriented x3 HEENT: Mucous membr. moist/pink Neck: Supple Neuro: Oriented Times 3 Cardiovascular: Regular rate Respiratory: No respiratory distress Extremities: No edema - Results Results: Laboratory Results WBC 10.5 x10^3/uL (4.8-10.8) 12/24/16 04:07 RBC 3.85 10^6/uL (4.20-5.40) L 12/24/16 04:07 Hgb 12.4 g/dL (12.0-16.0) 12/24/16 04:07 Hct 35.9 % (37.0-47.0) L 12/24/16 04:07 MCV 93.3 fL (81.0-99.0) 12/24/16 04:07 MCH 32.2 pg (27.0-31.0) H 12/24/16 04:07 MCHC 34.5 g/dL (32.0-36.0) 12/24/16 04:07 RDW 13.6 % (12.0-15.0) 12/24/16 04:07 Plt Count 422 10^3/uL (130-450) 12/24/16 04:07 MPV 7.1 fL (7.9-10.8) L 12/24/16 04:07 Neut # 8.7 10^3/uL (1.5-6.6) H 12/24/16 04:07 Lymph # 1.0 10^3/uL (1.5-3.5) L 12/24/16 04:07 Menard # 0.6 10^3/uL (0.0-1.0) 12/24/16 04:07 Eos # 0.1 10^3/uL (0.0-0.7) 12/24/16 04:07 Baso # 0.1 10^3/uL (0.0-0.1) 12/24/16 04:07 Absolute Nucleated RBC 0.01 x10^3/uL 12/24/16 04:07 Nucleated RBC % 0.0 /100WBC 12/24/16 04:07 D-Dimer > 1050.0 ng/mL (200.0-255.0) H 12/23/16 19:43 VBG pH 7.489 (7.31-7.41) H 12/24/16 04:07 Ionized Calcium 1.06 mmol/L (1.15-1.33) L 12/24/16 04:07 Sodium 139 mmol/L (135-145) 12/24/16 04:07 Potassium 4.0 mmol/L (3.5-5.0) 12/24/16 04:07 Chloride 103 mmol/L (101-111) 12/24/16 04:07 Carbon Dioxide 25 mmol/L (21-32) 12/24/16 04:07 Anion Gap 11.0 (6-13) 12/24/16 04:07 BUN 8 mg/dL (6-20) 12/24/16 04:07 Creatinine 0.7 mg/dL (0.4-1.0) 12/24/16 04:07 Estimated GFR (MDRD) 90 (>89) 12/24/16 04:07 Glucose 111 mg/dL (70-100) H 12/24/16 04:07 Calcium 8.5 mg/dL (8.5-10.3) 12/24/16 04:07 Ionized Calcium NO 12/23/16 19:44 Phosphorus 3.6 mg/dL (2.5-4.6) 12/24/16 04:07 Magnesium 2.2 mg/dL (1.7-2.8) 12/24/16 04:07 Total Bilirubin 0.6 mg/dL (0.2-1.0) 12/24/16 04:07 AST 55 IU/L (10-42) H 12/24/16 04:07 ALT 42 IU/L (10-60) 12/24/16 04:07 Alkaline Phosphatase 48 IU/L (42-121) 12/24/16 04:07 Troponin I < 0.04 ng/mL (<0.49) 12/24/16 04:07 Total Protein 5.9 g/dL (6.7-8.2) L 12/24/16 04:07 Albumin 3.2 g/dL (3.2-5.5) 12/24/16 04:07 Globulin 2.7 g/dL (2.1-4.2) 12/24/16 04:07 Albumin/Globulin Ratio 1.2 (1.0-2.2) 12/24/16 04:07 Lipase 29 U/L (22-51) 12/20/16 12:22 Serum HCG, Qual NEGATIVE 12/20/16 12:22 Urine Color YELLOW 12/21/16 02:00 Urine Clarity SL. CLOUDY (CLEAR) 12/21/16 02:00 Urine pH 6.0 PH (5.0-7.5) 12/21/16 02:00 Ur Specific [place] 1.010 (1.002-1.030) 12/21/16 02:00 Urine Protein NEGATIVE mg/dL (NEGATIVE) 12/21/16 02:00 Urine Glucose (UA) NEGATIVE mg/dL (NEGATIVE) 12/21/16 02:00 Urine Ketones NEGATIVE mg/dL (NEGATIVE) 12/21/16 02:00 Urine Occult Blood SMALL (NEGATIVE) H 12/21/16 02:00 Urine Nitrite NEGATIVE (NEGATIVE) 12/21/16 02:00 Urine Bilirubin NEGATIVE (NEGATIVE) 12/21/16 02:00 Urine Urobilinogen 0.2 (NORMAL) E.U./dL (NORMAL) 12/21/16 02:00 Ur Leukocyte Esterase MODERATE (NEGATIVE) H 12/21/16 02:00 Urine RBC 6-10 /HPF (0-5) H 12/21/16 02:00 Urine WBC >25 /HPF (0-5) H 12/21/16 02:00 Ur Squamous Epith Cells NONE SEEN (<= Few) 12/21/16 02:00 Urine Bacteria Few /HPF (None Seen) 12/21/16 02:00 Ur Microscopic Review INDICATED 12/21/16 02:00 Urine Culture Comments INDICATED 12/21/16 02:00 Blood Type A POSITIVE 12/20/16 12:22 Blood Type Recheck A POSITIVE 12/20/16 19:27 Antibody Screen NEGATIVE 12/20/16 12:22 Crossmatch IS Only See Detail 12/20/16 12:22 - Procedures Procedures: Procedures COLONOSCOPY (08/10/13)
[2016-12-24] MEDS ORDERED: LORazepam 2 MG/ML SYRINGE IVP ONE (20:30)
[2016-12-25] MEDS: ONDANSETRON 4 MG/2 ML VIAL IVP PRN (00:02)
[2016-12-25] MEDS: SODIUM CHLORIDE FLUSH 0.9% 10 ML SYRINGE IVP SCH (04:51)
[2016-12-25] MEDS: LORazepam 2 MG/ML SYRINGE IVP PRN (05:02)
[2016-12-25] MEDS: SODIUM CHLORIDE 0.9% 1,000 ML IV SCH (05:45)
[2016-12-25] MEDS: FLUTICASONE NASAL SPRAY NAS SCH (08:33)
[2016-12-25] MEDS: ASPIRIN EC 81 MG TABLET PO SCH (08:34)
[2016-12-25] MEDS: EZETIMIBE 10 MG TABLET PO SCH (08:34)
[2016-12-25] MEDS: FAMOTIDINE 20 MG/50 ML 50 ML IV SCH (08:34)
[2016-12-25] MEDS: MULTIVITAMIN TABLET PO SCH (09:46)
[2016-12-25] MEDS: LORATADINE 10 MG TABLET PO SCH (09:46)
[2016-12-25] MEDS: POLYETHYLENE GLYCOL 3350 17 GM PACKET PO SCH (09:46)
--- NOTE | 2016-12-25 11:09 | PROVIDER PROGRESS NOTE ---
Subjective - General Admit Date: 12/20/16 Procedure Date: 12/20/16 Post Op Days: 5 Procedure Performed: ex lap, appy, evacuation of pelvic hematoma, control hemorrhage - Review of Systems Wound/Incisions: positive: No drainage. negative: Erythema General: positive: Appetite (poor but tolerating liquids well), Other (c/o gas pains but no flatus or stool, no N/V). negative: Fever, Weakness, Fatigue, Chills, Night sweats HEENT: positive: No symptoms Pulmonary: positive: Other (difficulty taking deep breaths due to incisional pain, but improving) Cardiovascular: positive: No symptoms Gastrointestinal: positive: Abdominal pain (c/o gas pains but incisional pain well controlled.), Constipation. negative: Nausea, Vomiting, Difficulty swallowing, Flatus, Diarrhea Genitourinary: positive: No symptoms (urine C&S shows greater than 100K GNR; ID & S pending). negative: Dysuria, Frequency, Burning, Pain, Urgency, Incontinence, Hematuria, Retention, Flank pain Musculoskeletal: positive: No symptoms Skin: positive: No symptoms Psychiatric: positive: Depression (depressed mood improving) Objective - Patient Data Reviewed Vital Signs: Yes Vital Signs: Vital Signs x48h Temp Pulse Resp BP Pulse Ox 12/25/16 08:20 36.8 C 12/25/16 07:43 95 16 121/85 H 94 12/25/16 05:00 37.2 C 86 18 115/77 95 Intake & Output: Intake and Output Totals x24h 12/23/16 12/24/16 12/25/16 23:59 23:59 23:59 Intake Total 740 2109.72 540.28 Output Total 600 2150 Balance 140 -40.28 540.28 - Lab Results Lab Results: 12/24/16 04:07 12/24/16 04:07 - Current Medications Current Medications: Current Medications Generic Name Dose Route Start Last Admin Trade Name Freq PRN Reason Stop Dose Admin Acetaminophen/Hydrocodone Bitart 1 - 2 tab 12/22/16 11:00 12/23/16 14:01 [place] 5/325 PO 1 tab Q6H PRN Administration PAIN Aspirin 81 mg 12/23/16 13:00 12/25/16 08:34 Ecotrin PO 81 mg DAILY JHONATAN Administration Ezetimibe 10 mg 12/23/16 13:00 12/25/16 08:34 Zetia PO 10 mg DAILY JHONATAN Administration Fluticasone Propionate 1 sprays 12/23/16 13:00 12/25/16 08:33 Flonase MITUL 1 spr DAILY JHONATAN Administration Famotidine 50 mls @ 100 mls/hr 12/24/16 09:00 12/25/16 09:05 Pepcid 20 Mg/50 Ml IV Infused BID JHONATAN Infusion Ketorolac Tromethamine 30 mg 12/22/16 10:20 12/23/16 14:30 Toradol Inj IVP 12/27/16 10:19 30 mg Q6HR PRN Administration PAIN Loratadine 10 mg 12/24/16 09:00 12/25/16 09:46 Claritin PO Not Given DAILY [facility] Lorazepam 0.5 mg 12/24/16 13:07 12/25/16 05:02 Ativan Inj IVP 0.5 mg Q2HR PRN Administration Anxiety Metoclopramide HCl 5 mg 12/23/16 17:48 12/24/16 11:56 Reglan Inj IVP 5 mg Q6HR PRN Administration Nausea / Vomiting Morphine Sulfate 2 mg 12/23/16 19:37 12/23/16 19:42 Morphine IVP 2 mg Q2H PRN Administration PAIN Multivitamins 1 tab 12/23/16 13:00 12/25/16 09:46 Theragran PO Not Given DAILY [facility] Nitroglycerin 0.4 mg 12/23/16 18:37 12/23/16 19:36 Nitrostat SL 0.4 mg Q5MIN PRN Administration Chest Pain Ondansetron HCl 4 mg 12/20/16 20:56 12/25/16 00:02 Zofran Inj IVP 4 mg Q6H PRN Administration Nausea / Vomiting Polyethylene Glycol 17 gm 12/21/16 09:00 12/25/16 09:46 Miralax PO Not Given DAILY [facility] Sodium Chloride 10 ml 12/20/16 22:00 12/25/16 04:51 Normal Saline Flush 0.9% IVP 10 ml Q8HR JHONATAN Administration Sodium Chloride 10 ml 12/20/16 20:56 12/23/16 18:02 Normal Saline Flush 0.9% IVP 20 ml PRN PRN Administration NEEDED PER PROVIDER ORDERS Trazodone HCl 50 mg 12/21/16 21:25 10/29/17 00:28 Desyrel PO 50 mg QPM PRN Administration Insomnia - Physical Exam Wound/Incisions: positive: Healing well, Dressing dry and intact, No drainage ( Removed wound vac and patient tolerated well.) General Appearance: positive: No acute distress (Wants to go home.) Neck: positive: Nml inspection Abdomen: positive: Non-tender, Nml bowel sounds. negative: Tenderness, Guarding , Rebound Impression/Plan - Problem List Problem List: POD 5 s/p exp lap, evacuation of hemopertoneum, incidental appendectomy Tolerating general diet, ambulating, pain controlled. Pathology has not returned and the cause for the hemoperitoneum is unclear. In this instance would caution against using anticoagulation or antiplatelet agents. Will discharge home today with follow up with me this for staple removal.
--- NOTE | 2016-12-25 11:12 | Discharge Plan ---
Discharge Plan Disposition: Home, Self Care Condition: Good Prescriptions: HYDROcod/ACETAM 5/325 [[place] 5/325] 1 - 2 tab PO Q6H PRN #30 tablet PRN Reason: Pain Polyethylene Glycol 3350 [Miralax] 17 gm PO DAILY #10 packet Diet: Regular Activity Restrictions: No lifting >15 pounds for 6 weeks. Shower Restrictions: No Driving Restrictions: No (But no driving while taking pain meds.) Weight Bearing: Full Weight Additional Instructions or Follow Up instructions: Call with any questions or concerns. No Smoking: If you smoke, Please STOP! Call for help. Follow-up with: Vishnu Stephenson MD [Primary Care Provider] - Dominic Centeno MD [Provider Admit Priv/Credential] -
[2016-12-25 11:35] VITALS: BP 128/85
--- NOTE | 2017-01-08 07:28 | DISCHARGE SUMMARY ---
DATE OF ADMISSION: 12/20/2016 DATE OF DISCHARGE: 12/25/2016 HISTORY OF PRESENT ILLNESS: The patient was admitted through [facility]'s emergenc y department with right-sided abdominal pain. In review of her chart, the patient has had a history o f coronary artery disease and polycythemia. She is status post bilateral oophorectomy, right nephrect suki for a defect, as well as a previous cholecystectomy. She was admitted to [facility] on 12/[address] with abdominal pain and CT scan showed confluent, matted, adherent, thickened bowel c entered approximately around the cecum. The appendix was unclear. The process was presumably inflamma tory, but neoplasm was not ruled out. The patient was admitted to that hospital for several days, did not have surgery, and was placed on antibiotics, and then discharged without antibiotics. The patien t followed with her primary care today and the findings were peritoneal, so the patient returned to [facility] emergency room. There was no fever, nausea, vomiting, or diarrhea. A consultation was sought via Janis Caba and again please note that all of this was done via chart review. Dr. Caba saw the patient on consultation and concluded that the patient had a likely acute abdomen due to acute append icitis with perforation and plan is to take him to the operating room for appendectomy with laparosco pic being the preferred approach, but possible open. She was taken to the operating room on that same day and intraoperatively a consultation was sought by Dr. Lavonne Jauregui due to intra-abdominal bleed ing, and Dr. Lavonne Jauregui performed a ligation of the infundibulopelvic ligament and cauterization o f the fungal suture line. The findings included surgically absent bilateral adnexa, bleeding from the suture line on the fundus of the uterus, and generalized inflammation, but no gross findings of endo metriosis. Dr. Caba's portion of the examination included a diagnostic laparoscopy converted to lap arotomy with appendectomy and control of hemorrhage from the right infundibulopelvic ligament. Postop eratively, a consultation was sought by Dr. Bella, as the patient was quite drowsy. The patient's pos toperative course was one of slow progression to bowel function. Her diet was advanced. There was alexis e concern as to whether the patient was having angina and an EKG showed new anterior T-wave inversion s and Dr. Mccollum decided that the patient would need followup with a staff accountant as an outpatient for evaluation of an abnormal EKG and throat pain which may have been her anginal equivalent. At any rate, by Halloween, the patient was tolerating a general diet. Again, I came in just to discharge he r. She was discharged home to follow up with us in 7-10 days and in addition to follow up with her ca rdiologist for the aforementioned study. DISCHARGE DIAGNOSES: Includes a patient who has had an intra-abdominal hemorrhage likely due from the infundibulopelvic ligament, as well as an appendectomy as a possible source of her inflammation. 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 Additionally, the discharge diagnosis may be an jennifer (atypical) with need for followup with staff accountant. At any rate, the patient was told not to li ft anything heavier than 15 pounds for a total of 6 weeks. She is told to follow up with me this Thur sday and to follow up with staff accountant. Whether or not the use of anticoagulants or blood thinners w ould be necessary would be decided by her staff accountant. She was instructed to call our office with an y questions and/or concerns. Otherwise, it was okay to tolerate a general diet, walk, climb stairs, s hower, hot tub, swim, even have sex. JOB #: [id number] EXT JOB #:[id number]
== END 2016-12-25 11:37 | disposition home or self-care (01) | DRG 335 ==
LOC: ED 11:59 → SDS 17:30 → MS2 20:56 → ICU 12-23 19:16 → MS3 12-25 03:58
PROVIDERS: ADMIT Internal Medicine Gastroenterology; ATTEND Surgery
PROC: 0DNU4ZZ Release Omentum, Percutaneous Endoscopic Approach (ICD-10-PCS; 2016-12-20)
PROC: 0DTJ0ZZ Resection of Appendix, Open Approach (ICD-10-PCS; 2016-12-20)
PROC: 0DN84ZZ Release Small Intestine, Percutaneous Endoscopic Approach (ICD-10-PCS; 2016-12-20)
PROC: 0W3R0ZZ Control Bleeding in Genitourinary Tract, Open Approach (ICD-10-PCS; principal; 2016-12-20 17:45)
DX: K66.1 Hemoperitoneum (principal); K35.3 Acute appendicitis with localized peritonitis; J98.11 Atelectasis; K91.89 Other postprocedural complications and disorders of digestive system; K56.7 Ileus, unspecified; N94.89 Other specified conditions associated with female genital organs and menstrual cycle; I25.118 Atherosclerotic heart disease of native coronary artery with other forms of angina pectoris; K66.0 Peritoneal adhesions (postprocedural) (postinfection); Y83.8 Other surgical procedures as the cause of abnormal reaction of the patient, or of later complication, without mention of misadventure at the time of the procedure; Y92.239 Unspecified place in hospital as the place of occurrence of the external cause; D3A.020 Benign carcinoid tumor of the appendix; I10 Essential (primary) hypertension; K21.9 Gastro-esophageal reflux disease without esophagitis; F32.9 Major depressive disorder, single episode, unspecified; F41.9 Anxiety disorder, unspecified; D45 Polycythemia vera; E78.5 Hyperlipidemia, unspecified; E28.2 Polycystic ovarian syndrome; I25.2 Old myocardial infarction; Z95.5 Presence of coronary angioplasty implant and graft; Z79.02 Long term (current) use of antithrombotics/antiplatelets; Z79.82 Long term (current) use of aspirin; Z90.5 Acquired absence of kidney; Z90.49 Acquired absence of other specified parts of digestive tract; Z90.722 Acquired absence of ovaries, bilateral; Z88.0 Allergy status to penicillin; Z87.891 Personal history of nicotine dependence
CPT/HCPCS: 36415; 71010; 71275; 74177; 80048; 80053; 81001; 81003; 82330; 83690; 83735; 84100; 84484; 84703; 85025; 85379; 86850; 86900; 86901; 86920; 87070; 87077; 87086; 87150; 87205; 88304; 88341; 88342; 88360; 93005; 96361; 96374; 96375; 99283; 99284

== ENCOUNTER 2017-02-07 09:00 | Outpatient (CLI) | payer OTHER | END 2017-02-07 09:01 | disposition home or self-care (01) | LOC: LAB.R 09:00 | PROVIDERS: ATTEND Family Medicine | DX: N31.9 Neuromuscular dysfunction of bladder, unspecified (principal) | CPT/HCPCS: 87086 ==

== ENCOUNTER 2017-02-11 21:03 | Outpatient (CLI) | payer OTHER ==
--- NOTE | 2017-02-11 22:04 | Ultrasound Preliminary Report ---
Exam: US BLADDER IMPRESSION: Large postvoid residual of 223 cc. RADIA The call report notification system was initiated by Dr. Paul Amaro at 21:56 hrs on 02/11/17. The above findings were discussed with Dr. Stephenson by Dr. Paul Amaro at 22:02 hrs on 02/11/17. SITE ID: [id number]
--- NOTE | 2017-02-11 22:07 | Ultrasound Report ---
EXAM: PELVIS ULTRASOUND, LIMITED EXAM DATE: 02/11/2017 09:40 PM. CLINICAL HISTORY: NEUROGENIC BLADDER. COMPARISON: CT 12/20/2016. TECHNIQUE: Real-time scanning was performed with static images obtained. FINDINGS: Ultrasound evaluation shows a prevoid bladder volume of 444 cc, 223 cc post void. Left uret eral jet noted. Patient has had right nephrectomy. No bladder wall thickening identified. IMPRESSION: Large postvoid residual of 223 cc. RADIA The call report notification system was initiated by Dr. Paul Amaro at 21:56 hrs on 02/11/17. The above findings were discussed with Dr. Stephenson by Dr. Paul Amaro at 22:02 hrs on 02/11/17. Referring Provider Line: [phone] SITE ID: [id number]
== END 2017-02-11 21:04 | disposition home or self-care (01) ==
LOC: DI 21:03
PROVIDERS: ATTEND Family Medicine
DX: N31.9 Neuromuscular dysfunction of bladder, unspecified (principal); Z90.5 Acquired absence of kidney
CPT/HCPCS: 76857

== ENCOUNTER 2017-04-04 08:02 | Outpatient (CLI) | payer OTHER ==
--- NOTE | 2017-04-04 13:27 | XRAY Report ---
TWO VIEW CHEST: 04/04/2017 CLINICAL INDICATION: Positive PPD. COMPARISON: 12/23/2016. FINDINGS: Frontal and lateral views of the chest demonstrate a normal cardiac silhouette. The lungs are clear. No effusion or pneumothorax is present. IMPRESSION: NORMAL CHEST. NO EVIDENCE OF ACTIVE TUBERCULOSIS. TD: 04/04/2017 13:25
== END 2017-04-04 08:03 | disposition home or self-care (01) ==
LOC: DI 08:02
PROVIDERS: ATTEND Family Medicine
DX: R76.11 Nonspecific reaction to tuberculin skin test without active tuberculosis (principal)
CPT/HCPCS: 71046

== ENCOUNTER 2017-06-17 18:31 | Outpatient (CLI) | payer OTHER ==
--- NOTE | 2017-06-18 10:08 | Ultrasound Report ---
COMPLETE ABDOMINAL ULTRASOUND: 06/17/2017 CLINICAL INDICATION: Polycythemia. COMPARISON: 12/28/2008. TECHNIQUE: Real-time scanning was performed with assisted sales representative static images obtained. FINDINGS: The liver measures 13 cm. Hepatic echogenicity is normal. No intrahepatic biliary dilatation or focal parenchymal lesion is appreciated. The common bile duct measures 9 mm. The patient is status post cholecystectomy. The pancreas is obscured by bowel gas. The right kidney is surgically absent. The left kidney measures 13 cm, and demonstrates normal echotexture. No hydronephrosis or perinephric collection is seen. The spleen measures 8.9 cm, and appears unremarkable. The abdominal aorta is normal in caliber. The inferior vena cava is unremarkable. No free fluid is present. IMPRESSION: POSTOPERATIVE CHANGES OF CHOLECYSTECTOMY AND RIGHT NEPHRECTOMY. NO EVIDENCE OF SPLENOMEGALY. TD: 06/18/2017 10:07
== END 2017-06-17 18:32 | disposition home or self-care (01) ==
LOC: DI 18:31
PROVIDERS: ATTEND Internal Medicine
DX: D75.1 Secondary polycythemia (principal); Z90.5 Acquired absence of kidney; Z90.49 Acquired absence of other specified parts of digestive tract
CPT/HCPCS: 76700

== ENCOUNTER 2017-09-08 16:27 | Outpatient (CLI) | payer OTHER ==
[2017-09-08 17:02] LABS: URIC ACID 7.7 mg/dL (2.6-7.2)
[2017-09-08 17:29] LABS: CRP - C-REACTIVE PROTEIN < 1.0 mg/dL (0-1.0)
[2017-09-08 19:15] LABS: RHEUMATOID FACTOR NEGATIVE (Negative)
== END 2017-09-08 16:28 | disposition home or self-care (01) ==
LOC: LAB 16:27
PROVIDERS: ATTEND Physician Assistant
DX: M79.643 Pain in unspecified hand (principal)
CPT/HCPCS: 84550; 85651; 86038; 86140; 86430

== ENCOUNTER 2017-11-15 14:40 | Outpatient (CLI) | payer OTHER ==
--- NOTE | 2017-11-16 16:10 | MRI Report ---
Reason: TREMOR,HEADACHE,POLYCYTHEMIA Procedure Date: 11/15/2017 Accession Number: [id number] / [id number] Procedure: MRI - Brain W/O CPT Code: FULL RESULT: MRI BRAIN WITHOUT CONTRAST INDICATION: 46-year-old female with a tremor and headache. The patient has polycythemia. TECHNIQUE: 1. T1 sagittal and fat-saturated T2 coronal. 2. Axial T1 3D, FLAIR, T2, T2* and DWI. COMPARISON: None. FINDINGS: Ventricular size is normal. A mild amount of white matter disease is identified in the supratentorial brain, manifested as focal and confluent T2 hyperintensities that are scattered throughout the frontoparietal white matter. A deep/subcortical distribution predominates. There is little if any involvement of the immediate periventricular regions. No pericallosal lesion is demonstrated. In addition, no pathology is seen in the corpus callosum, brainstem, cerebellar white matter or cerebellar peduncles. Flow voids are demonstrated in the main intracranial arteries. No abnormal diffusion restriction is demonstrated. No evidence of an acute or chronic hemorrhage on T2* GRE sequence. No abnormal extra-axial fluid collection. No mass effect or midline shift. Limited assessment of the orbits reveals no gross pathology. The paranasal sinuses are essentially clear. No mastoid or middle ear effusion. Marrow signal intensity in the regional skeletal structures is unremarkable. IMPRESSION: 1. A mild amount of white matter disease is identified in the supratentorial brain as described. The etiology is uncertain. Differential diagnostic considerations would include, vascular white matter pathologies (i.e. vasculitis, chronic microangiopathy, etc.) and non-vascular white matter pathologies, including a demyelinating process. However, the index of suspicion for multiple sclerosis is relatively low. Certainly the imaging findings do not fit 2010 Mahajan criteria for dissemination in space. Vasculitis would be a definite consideration for this appearance. Clinical correlation advised. 2. No other significant intracranial findings on this unenhanced brain MRI. In particular, no evidence of infarction, hemorrhage, space-occupying mass lesion or other acute intracranial pathology.
== END 2017-11-15 14:41 | disposition home or self-care (01) ==
LOC: DI 14:40
PROVIDERS: ATTEND Family Medicine
DX: R25.1 Tremor, unspecified (principal); R51 Headache; D75.1 Secondary polycythemia
CPT/HCPCS: 70551

== ENCOUNTER 2017-11-19 15:26 | Outpatient (CLI) | payer OTHER ==
[2017-11-19 15:45] LABS: BASOPHILS # (AUTO) 0.1 10^3/uL (0.0-0.1); BASOPHILS % (AUTO) 0.9 %; EOSINOPHILS # (AUTO) 0.2 10^3/uL (0.0-0.7); EOSINOPHILS % (AUTO) 2.6 %; HGB - HEMOGLOBIN 13.4 g/dL (12.0-16.0); LYMPHOCYTES # (AUTO) 2.3 10^3/uL (1.5-3.5); LYMPHOCYTES % (AUTO) 35.7 %; MEAN CORPUSCULAR HEMOGLOBIN 29.9 pg (27.0-31.0); MEAN CORPUSCULAR HGB CONC 34.5 g/dL (32.0-36.0); MEAN CORPUSCULAR VOLUME 86.6 fL (81.0-99.0); MEAN PLATELET VOLUME 7.3 fL (7.9-10.8); MONOCYTES # (AUTO) 0.5 10^3/uL (0.0-1.0); MONOCYTES % (AUTO) 8.5 %; NEUTROPHILS # (AUTO) 3.3 10^3/uL (1.5-6.6); NEUTROPHILS % (AUTO) 52.3 %; PLT - PLATELET COUNT 319 10^3/uL (130-450); RED BLOOD COUNT 4.48 10^6/uL (4.20-5.40); RED CELL DISTRIBUTION WIDTH 13.2 % (12.0-15.0); WHITE BLOOD COUNT 6.3 x10^3/uL (4.8-10.8)
== END 2017-11-19 15:27 | disposition home or self-care (01) ==
LOC: LAB 15:26
PROVIDERS: ATTEND Family Medicine
DX: D75.1 Secondary polycythemia (principal); R51 Headache
CPT/HCPCS: 36415; 85025; 85651; 86140

== ENCOUNTER 2018-03-05 08:00 | Outpatient (CLI) | payer OTHER ==
[2018-03-05 17:48] LABS: CALCIUM 9.3 mg/dL (8.5-10.3); CREATININE 0.7 mg/dL (0.4-1.0)
[2018-03-05 19:04] LABS: HB2 TOTAL 14.7 g/dL; HEMOGLOBIN A1C 0.53 g/dL; HEMOGLOBIN A1C % 5.4 % (4.6-6.2)
== END 2018-03-05 23:59 | disposition home or self-care (01) ==
LOC: LAB.R 08:00
PROVIDERS: ATTEND Family Medicine
DX: Z13.1 Encounter for screening for diabetes mellitus (principal)
CPT/HCPCS: 80048; 82043; 83036

== ENCOUNTER 2018-03-05 17:17 | Outpatient (CLI) | payer OTHER | END 2018-03-05 17:18 | disposition home or self-care (01) | LOC: LAB 17:17 | PROVIDERS: ATTEND Family Medicine | DX: Z13.1 Encounter for screening for diabetes mellitus (principal) ==

== ENCOUNTER 2018-06-30 08:00 | Outpatient (CLI) | payer BC ==
[2018-06-30 18:11] LABS: BASOPHILS # (AUTO) 0.1 10^3/uL (0.0-0.1); BASOPHILS % (AUTO) 1.1 %; EOSINOPHILS # (AUTO) 0.2 10^3/uL (0.0-0.7); EOSINOPHILS % (AUTO) 2.6 %; HGB - HEMOGLOBIN 14.9 g/dL (12.0-16.0); LYMPHOCYTES # (AUTO) 2.3 10^3/uL (1.5-3.5); MEAN CORPUSCULAR HEMOGLOBIN 26.7 pg (27.0-31.0); MEAN CORPUSCULAR HGB CONC 31.5 g/dL (32.0-36.0); MEAN CORPUSCULAR VOLUME 84.8 fL (81.0-99.0); MEAN PLATELET VOLUME 8.3 fL (7.9-10.8); MONOCYTES # (AUTO) 0.5 10^3/uL (0.0-1.0); MONOCYTES % (AUTO) 8.2 %; NEUTROPHILS % (AUTO) 50.1 %; PLT - PLATELET COUNT 318 10^3/uL (130-450); RED BLOOD COUNT 5.56 10^6/uL (4.20-5.40); RED CELL DISTRIBUTION WIDTH 17.7 % (12.0-15.0)
[2018-06-30 18:28] LABS: ALBUMIN 4.4 g/dL (3.2-5.5); ALBUMIN/GLOBULIN RATIO 1.3 (1.0-2.2); ALKALINE PHOSPHATASE 87 IU/L (42-121); ALT ALANINE AMINOTRANSFERASE 31 IU/L (10-60); AST ASPARTATE AMINOTRANSFERASE 32 IU/L (10-42); BILIRUBIN,TOTAL 0.8 mg/dL (0.2-1.0); BUN - BLOOD UREA NITROGEN 16 mg/dL (6-20); CALCIUM 9.2 mg/dL (8.5-10.3); CARBON DIOXIDE - CO2 26 mmol/L (21-32); CHLORIDE 101 mmol/L (101-111); CHOL/HDL RATIO 2.4 (<4.4); CHOLESTEROL 172 mg/dL; CREATININE 0.7 mg/dL (0.4-1.0); GFR - MDRD 89 (>89); GLUCOSE 87 mg/dL (70-100); HDL CHOLESTEROL 71 mg/dL; LDL CHOLESTEROL,CALCULATED 84 mg/dL; LDL/HDL RATIO 1.2 (<4.4); SODIUM 139 mmol/L (135-145); TOTAL PROTEIN 7.8 g/dL (6.7-8.2); VLDL CHOLESTEROL 17 mg/dL
== END 2018-06-30 23:59 | disposition home or self-care (01) ==
LOC: LAB.S 08:00
PROVIDERS: ATTEND Family Medicine
DX: D75.1 Secondary polycythemia (principal); I25.10 Atherosclerotic heart disease of native coronary artery without angina pectoris; K21.9 Gastro-esophageal reflux disease without esophagitis
CPT/HCPCS: 36415; 80053; 80061; 83721; 84443; 85025

== ENCOUNTER 2018-08-07 17:21 | Outpatient (CLI) | payer BC ==
[2018-08-07 17:37] LABS: BASOPHILS # (AUTO) 0.1 10^3/uL (0.0-0.1); EOSINOPHILS # (AUTO) 0.2 10^3/uL (0.0-0.7); EOSINOPHILS % (AUTO) 2.9 %; HGB - HEMOGLOBIN 14.8 g/dL (12.0-16.0); LYMPHOCYTES # (AUTO) 2.9 10^3/uL (1.5-3.5); LYMPHOCYTES % (AUTO) 36.1 %; MEAN CORPUSCULAR HEMOGLOBIN 27.9 pg (27.0-31.0); MEAN CORPUSCULAR HGB CONC 33.1 g/dL (32.0-36.0); MEAN CORPUSCULAR VOLUME 84.3 fL (81.0-99.0); MEAN PLATELET VOLUME 7.3 fL (7.9-10.8); MONOCYTES # (AUTO) 0.8 10^3/uL (0.0-1.0); MONOCYTES % (AUTO) 10.3 %; NEUTROPHILS % (AUTO) 49.7 %; PLT - PLATELET COUNT 310 10^3/uL (130-450)
[2018-08-07 17:46] LABS: ALBUMIN 4.3 g/dL (3.2-5.5); ALBUMIN/GLOBULIN RATIO 1.2 (1.0-2.2); BILIRUBIN,TOTAL 0.6 mg/dL (0.2-1.0); CALCIUM 9.3 mg/dL (8.5-10.3); CREATININE 0.7 mg/dL (0.4-1.0); TOTAL PROTEIN 7.8 g/dL (6.7-8.2)
== END 2018-08-07 17:22 | disposition home or self-care (01) ==
LOC: LAB 17:21
PROVIDERS: ATTEND Internal Medicine Gastroenterology
DX: D75.1 Secondary polycythemia (principal); R10.13 Epigastric pain
CPT/HCPCS: 80053; 85025

== ENCOUNTER 2018-08-18 13:03 | Day surgery (SDC) | payer BC ==
[2018-08-18] MEDS ORDERED: SODIUM CHLORIDE FLUSH 0.9% 10 ML SYRINGE ONE (14:02)
[2018-08-18] MEDS ORDERED: LACTATED RINGERS 1,000 ML IV ONE (14:18)
[2018-08-18] MEDS ORDERED: LIDO GARGLE 30 ML BOTTLE PO ONE (16:00)
[2018-08-18] MEDS ORDERED: fentaNYL 100 MCG/2 ML VIAL IVP ONE (16:15)
[2018-08-18] MEDS ORDERED: MIDAZOLAM 2 MG/2 ML VIAL IVP ONE (16:15)
[2018-08-18 16:57] VITALS: BP 118/63
== END 2018-08-18 13:04 | disposition home or self-care (01) ==
LOC: SDS 13:03
PROVIDERS: ATTEND Internal Medicine Gastroenterology
PROC: 0DB78ZX Excision of Stomach, Pylorus, Via Natural or Artificial Opening Endoscopic, Diagnostic (ICD-10-PCS; 2018-08-18)
PROC: 0DB58ZX Excision of Esophagus, Via Natural or Artificial Opening Endoscopic, Diagnostic (ICD-10-PCS; 2018-08-18)
PROC: 0DB48ZX Excision of Esophagogastric Junction, Via Natural or Artificial Opening Endoscopic, Diagnostic (ICD-10-PCS; principal; 2018-08-18 14:30)
DX: R10.13 Epigastric pain (principal); K21.9 Gastro-esophageal reflux disease without esophagitis; R13.10 Dysphagia, unspecified; K29.50 Unspecified chronic gastritis without bleeding; K44.9 Diaphragmatic hernia without obstruction or gangrene; D75.1 Secondary polycythemia; K58.1 Irritable bowel syndrome with constipation; E66.9 Obesity, unspecified; I10 Essential (primary) hypertension; Z79.899 Other long term (current) drug therapy; Z79.82 Long term (current) use of aspirin; Z87.891 Personal history of nicotine dependence; Z68.35 Body mass index [BMI] 35.0-35.9, adult
CPT/HCPCS: 43239; 43250; A9270; J7120

== ENCOUNTER 2018-09-23 17:08 | Emergency (ER) | payer BC ==
--- NOTE | 2018-09-23 17:40 | ED Physician Documentation ---
History of Present Illness - Stated complaint Stated Complaint: SWELLING LEGS AND FEET - Chief complaint Chief Complaint: Ext Problem - History obtained from History obtained from: Patient - History of Present Illness Timing: Yesterday (Aching burning pain L leg anteriorly/foot since yesterday. No trauma. The day prior to that she got sunburned on the legs. 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: Ovarian cysts (polycystic ovary syndrome) : Other HEENT: None Psych: Anxiety Musculoskeletal: Osteoporosis Derm: None - Past Surgical History Past Surgical History: Yes General: Cholecystectomy, Appendectomy Ortho: Carpal Tunnel surgery /MOISTURE METER READER: section, Oophrectomy Cardiovascular: Coronary stent - Present Medications Home Medications: Ambulatory Orders Medication Instructions Recorded Confirmed Ezetimibe [Zetia] 10 mg PO DAILY 05/15/17 08/18/18 Propranolol [Inderal] 1 tab ORAL BID 12/25/17 08/18/18 Aspirin 325 mg PO DAILY 03/19/18 08/18/18 Sertraline [Zoloft] 50 mg PO DAILY 07/23/18 08/18/18 - Allergies Allergies/Adverse Reactions: Allergies Allergy/AdvReac Type Severity Reaction Status Date / Time amoxicillin [Amoxicillin] Allergy hepatitis Verified 09/23/18 17:21 citalopram hydrobromide * Allergy flank pain Verified 09/23/18 17:21 [From Celexa] sertraline Allergy Unknown Verified 09/23/18 17:21 simvastatin [From Zocor] Allergy flank pain Verified 09/23/18 17:21 oxycodone AdvReac Severe vomiting Verified 09/23/18 17:21 - Social History Does the pt smoke?: Yes Smoking Status: Former smoker Does the pt drink ETOH?: Yes Does the pt have substance abuse?: No - Family History Family history: reports: Non contributory - Immunizations Immunizations are current?: Yes - POLST Patient has POLST: No POLST Status: Full Code PD ED PE NORMAL - Vitals Vital signs reviewed: Yes - General General: Alert and oriented X 3, No acute distress - Cardiac Cardiac: RRR, No murmur - Respiratory Respiratory: No respiratory distress, Clear bilaterally - Abdomen Abdomen: Soft, Non tender - Extremities Extremities: Other (sunburned on anterior legs. TTP top of LLE and L ankle. Both ankles. There is only mild asymmetry. Normal pedal pulses. Painless range of motion at the ankle.) - Neuro Neuro: Alert and oriented X 3, Normal speech - Psych Psych: Normal mood, Normal affect Results - Vitals Vitals: Vital Signs - 24 hr 09/23/18 17:21 Temperature 37.0 C Heart Rate 71 Respiratory 18 Rate Blood Pressure 136/88 H O2 Saturation 99 Oxygen O2 Source Room air - Labs Labs: Laboratory Tests 09/23/18 17:56 Sodium 141 Potassium 3.9 Chloride 102 Carbon Dioxide 26 Anion Gap 13.0 BUN 12 Creatinine 0.7 Estimated GFR (MDRD) 89 Glucose 111 H Calcium 8.9 - Rads (name of study) LLE DVT sono Radiology: EMP read contemporaneously (negative) PD MEDICAL DECISION MAKING - ED course ED course: 47-year-old woman returns from a trip from [place] where she got sunburn in both legs and now has some asymmetric pedal edema left greater than right. She notes some slight decrease in urination at home but her basic metabolic panel is normal with normal electrolytes and renal function. An ultrasound of the left leg is negative for DVT. I suspect this is multifactorial, probably an i nflammatory reaction from the sunburn and increased sitting position with traveling and possibly some increased salt intake with traveling. Elevation was advised and she was given a single oral dose of Lasix here. There is no evidence of infection. Departure - Departure Disposition: 01 Home, Self Care Clinical Impression: Pedal edema, Sunburn Pain of lower extremity Qualifiers: Laterality: left Qualified Code(s): M79.605 - Pain in left leg Condition: Good Record reviewed to determine appropriate education?: Yes Instructions: ED Burn Sunburn Comments: As discussed, the pain in your ankle probably is multifactorial from the swelling after traveling, potentially some increased salt intake while traveling, and the sunburn. There is no evidence of blood clot or infection. Your kidneys are working fine. Return for new or worsening symptoms if, if not better in 48 hours, or any time if you run a fever. Forms: Activity restrictions
[2018-09-23 18:24] LABS: CALCIUM 8.9 mg/dL (8.5-10.3); CREATININE 0.7 mg/dL (0.4-1.0)
[2018-09-23] MEDS ORDERED: FUROSEMIDE 20 MG TABLET PO STA (18:59)
[2018-09-23 19:09] VITALS: BP 129/88
--- NOTE | 2018-09-23 19:17 | Ultrasound Report ---
Reason: LLE swelling Procedure Date: 09/23/2018 Accession Number: [id number] / [id number] Procedure: US - Duplex Ext Veins Left CPT Code: FULL RESULT: EXAM: LEFT LOWER EXTREMITY VENOUS ULTRASOUND EXAM DATE: 09/23/2018 06:50 PM. CLINICAL HISTORY: LLE swelling. COMPARISON: None. TECHNIQUE: Real-time sonographic vascular imaging was performed by the public health aides teacher through the lower extremity utilizing both color-flow and Doppler spectral analysis. Multiple product representative static images were saved for review. FINDINGS: Common Femoral Vein (CFV): Normal. CFV-GSV Junction: Normal. Profunda Femoral Vein (PFV): Normal. Femoral Vein (FV) Prox: Normal. Femoral Vein (FV) Mid: Normal. Femoral Vein (FV) Dist: Normal. Popliteal Vein: Normal. Posterior Tibial Veins: Normal. Peroneal Veins: Normal. Other: Visualization of calf veins limited. IMPRESSION: No evidence for deep venous thrombosis. RADIA
== END 2018-09-23 19:11 | disposition home or self-care (01) ==
LOC: ED 17:08
DX: L55.9 Sunburn, unspecified (principal); M79.605 Pain in left leg; R60.0 Localized edema; Z87.891 Personal history of nicotine dependence; Z79.82 Long term (current) use of aspirin
CPT/HCPCS: 36415; 80048; 93971; 99283; 99284; A9270

== ENCOUNTER 2018-10-24 08:00 | Outpatient (CLI) | payer BC ==
[2018-10-24 11:59] LABS: BASOPHILS % (AUTO) 0.7 %; EOSINOPHILS # (AUTO) 0.2 10^3/uL (0.0-0.7); EOSINOPHILS % (AUTO) 3.2 %; LYMPHOCYTES # (AUTO) 1.9 10^3/uL (1.5-3.5); LYMPHOCYTES % (AUTO) 30.8 %; MEAN CORPUSCULAR HGB CONC 33.2 g/dL (32.0-36.0); MEAN CORPUSCULAR VOLUME 87.6 fL (81.0-99.0); MONOCYTES # (AUTO) 0.7 10^3/uL (0.0-1.0); MONOCYTES % (AUTO) 11.8 %; NEUTROPHILS # (AUTO) 3.2 10^3/uL (1.5-6.6); NEUTROPHILS % (AUTO) 53.2 %; PLT - PLATELET COUNT 323 10^3/uL (130-450); RED BLOOD COUNT 4.82 10^6/uL (4.20-5.40); RED CELL DISTRIBUTION WIDTH 13.9 % (12.0-15.0)
[2018-10-24 12:49] LABS: ALBUMIN 4.1 g/dL (3.2-5.5); ALBUMIN/GLOBULIN RATIO 1.3 (1.0-2.2); ALKALINE PHOSPHATASE 83 IU/L (42-121); ALT ALANINE AMINOTRANSFERASE 23 IU/L (10-60); AST ASPARTATE AMINOTRANSFERASE 26 IU/L (10-42); BILIRUBIN,TOTAL 0.8 mg/dL (0.2-1.0); BUN - BLOOD UREA NITROGEN 13 mg/dL (6-20); CALCIUM 9.2 mg/dL (8.5-10.3); CARBON DIOXIDE - CO2 28 mmol/L (21-32); CHLORIDE 105 mmol/L (101-111); CREATININE 0.8 mg/dL (0.4-1.0); GFR - MDRD 77 (>89); GLUCOSE 92 mg/dL (70-100); SODIUM 139 mmol/L (135-145); TOTAL PROTEIN 7.3 g/dL (6.7-8.2)
[2018-10-24 12:51] LABS: CRP - C-REACTIVE PROTEIN < 1.0 mg/dL (0-1.0)
[2018-10-24 12:52] LABS: RHEUMATOID FACTOR NEGATIVE (Negative)
== END 2018-10-24 23:59 | disposition home or self-care (01) ==
LOC: LAB.WCP 08:00
PROVIDERS: ATTEND Family Medicine
DX: L52 Erythema nodosum (principal); I25.10 Atherosclerotic heart disease of native coronary artery without angina pectoris; I10 Essential (primary) hypertension; K21.9 Gastro-esophageal reflux disease without esophagitis
CPT/HCPCS: 36415; 80053; 85025; 85651; 86038; 86140; 86200; 86430

== ENCOUNTER 2018-11-11 18:05 | Outpatient (CLI) | payer BC ==
[2018-11-11 18:33] LABS: BASOPHILS # (AUTO) 0.1 10^3/uL (0.0-0.1); BASOPHILS % (AUTO) 0.5 %; EOSINOPHILS # (AUTO) 0.3 10^3/uL (0.0-0.7); EOSINOPHILS % (AUTO) 3.3 %; HGB - HEMOGLOBIN 14.2 g/dL (12.0-16.0); LYMPHOCYTES # (AUTO) 3.3 10^3/uL (1.5-3.5); LYMPHOCYTES % (AUTO) 34.7 %; MEAN CORPUSCULAR HEMOGLOBIN 28.3 pg (27.0-31.0); MEAN CORPUSCULAR VOLUME 85.8 fL (81.0-99.0); MEAN PLATELET VOLUME 9.4 fL (7.9-10.8); MONOCYTES # (AUTO) 0.8 10^3/uL (0.0-1.0); MONOCYTES % (AUTO) 8.3 %; NEUTROPHILS % (AUTO) 52.8 %; PLT - PLATELET COUNT 349 10^3/uL (130-450); RED BLOOD COUNT 5.01 10^6/uL (4.20-5.40); RED CELL DISTRIBUTION WIDTH 13.8 % (12.0-15.0); WHITE BLOOD COUNT 9.5 x10^3/uL (4.8-10.8)
[2018-11-11 18:38] LABS: ALBUMIN 4.2 g/dL (3.2-5.5); ALBUMIN/GLOBULIN RATIO 1.2 (1.0-2.2); BILIRUBIN,TOTAL 0.6 mg/dL (0.2-1.0); CALCIUM 9.3 mg/dL (8.5-10.3); CREATININE 0.7 mg/dL (0.4-1.0); TOTAL PROTEIN 7.7 g/dL (6.7-8.2)
== END 2018-11-11 18:06 | disposition home or self-care (01) ==
LOC: LAB 18:05
PROVIDERS: ATTEND Internal Medicine Gastroenterology
DX: D75.1 Secondary polycythemia (principal); R10.13 Epigastric pain
CPT/HCPCS: 36415; 80053; 85025

== ENCOUNTER 2018-12-15 17:38 | Outpatient (CLI) | payer BC ==
[2018-12-15] MEDS ORDERED: IOVERSOL 320 100 ML VIAL IVP ONE ×2 (17:55→20:09)
[2018-12-15] MEDS ORDERED: IOVERSOL 320 50 ML VIAL ONE (17:55)
[2018-12-15 18:11] LABS: CREATININE 0.9 mg/dL (0.4-1.0)
--- NOTE | 2018-12-16 15:34 | CT Report ---
Reason: POLYCYTHEMIA NEUROENDOCRINE TUMOR Procedure Date: 12/15/2018 Accession Number: [id number] / [id number] Procedure: CT - Abdomen/Pelvis W CPT Code: FULL RESULT: EXAM: CT ABDOMEN AND PELVIS EXAM DATE: 12/15/2018 07:29 PM. CLINICAL HISTORY: Polycythemia. Carcinoid/neuroendocrine tumor. Evaluate for recurrence of tumor. COMPARISONS: ABDOMEN/PELVIS W/ 12/20/2016 3:45 PM ABDOMEN/PELVIS W/ 01/02/2013 5:07 PM ABD/PEL 12/09/2008 1:44 PM. TECHNIQUE: Routine helical CT imaging was performed through the abdomen and pelvis. IV contrast: 100 mL Optiray 320. Enteric contrast: Yes. Reconstructions: Coronal and sagittal. In accordance with CT protocol optimization, one or more of the following dose reduction techniques were utilized for this exam: automated exposure control, adjustment of mA and/or KV based on patient size, or use of iterative reconstructive technique. FINDINGS: Lung Bases: Mild dependent atelectasis. Liver: Stable 3 mm circumscribed hypoattenuating focus in inferior right hepatic lobe segment 6, too small to characterize further (05/22). No new focal hepatic lesion. Gallbladder/Bile Ducts: Post cholecystectomy. No biliary ductal dilatation. Spleen: Normal. Pancreas: Normal. Adrenal Glands: A 1.3 x 1.2 cm left adrenal nodule is stable compared to 2008 (05/19). Normal right adrenal gland. Kidneys and Ureters: Post right nephrectomy. Normal appearance of the left kidney with no stones, hydronephrosis, or hydroureter. Peritoneal Cavity/Bowel: No evidence for bowel obstruction or acute inflammatory process. Interval appendectomy. No free fluid, pneumoperitoneum, or adenopathy. Pelvic Organs: The bladder and visualized reproductive organs are within normal limits. Vasculature: Accessory retroaortic left renal vein, a normal variant. Trace atherosclerotic calcifications within the infrarenal abdominal aorta, bilateral common iliac, and right internal iliac arteries. Bones: Chronic mild compression deformities of the T12-L2 superior endplates. Mild right convex curvature centered at L2-L3. No suspicious lytic or blastic osseous lesion. Other: None. IMPRESSION: 1. Postoperative changes of remote right nephrectomy and interval appendectomy. No evidence for local disease recurrence or distant metastatic disease. 2. Stable left adrenal nodule. RADIA
== END 2018-12-15 17:39 | disposition home or self-care (01) ==
LOC: LAB 17:38
PROVIDERS: ATTEND Internal Medicine
DX: D75.1 Secondary polycythemia (principal); Z85.89 Personal history of malignant neoplasm of other organs and systems
CPT/HCPCS: 74177; 82565; Q9967

== ENCOUNTER 2019-01-21 08:55 | Outpatient (CLI) | payer BC ==
--- NOTE | 2019-01-21 16:31 | CARDIAC PROCEDURE NOTE ---
DATE OF SERVICE: 01/21/2019 Physician: Eliane Mccollum MD, [facility] INDICATIONS: Angina, palpitations. CARDIAC RISK FACTORS: Family history of heart disease, hypertension, hyperlipidemia. The patient has known coronary disease with an LAD stent in 2013 and an RCA stent in 2014. She has developed recurrence of her angina over the past 3-4 months, now more frequently and longer lasting. DESCRIPTION OF PROCEDURE: After signing informed consent, the patient underwent a Erlin-protocol treadmill stress test with nuclear myocardial perfusion imaging. RESTING HEART RATE: 56. PEAK HEART RATE: 140 (81% predicted maximum heart rate for age). RESTING BLOOD PRESSURE: 120/88. PEAK BLOOD PRESSURE: 171/114. The patient exercised for 6 minutes and 8 seconds on a Erlin-protocol treadmill stress test. The patient developed shortness of breath at the end of stage 1 and developed her typical chest pressure in the upper chest, below her neck, which she rated 5/10. For this reason, the exercise was stopped before achieving 85% predicted heart rate. The patient achieved a heart rate of 140 (81% PMHR), and 7.2 METS. The patient did take her morning Propranolol dose. There was no ectopy seen during the exercise. Oxygen saturation remained greater than 97% throughout the entire test. The patient's chest pain resolved spontaneously after 4 minutes of recovery. RESTING EKG: Sinus bradycardia, deep and symmetrically inverted T waves in leads V1 through V3, flat or biphasic T waves in leads I, aVL, V4 and V5. EKG AT PEAK: No new ST-segment changes, no new T-wave abnormalities. SUMMARY 1. Abnormal resting EKG. 2. Exercise stopped when she developed her typical symptoms of angina. 3. No new ST-segment or T-wave changes at this level of stress. 4. Nuclear images reported separately. cc: Dante Lane MD TD: 01/21/2019 16:16 MTDJanis
--- NOTE | 2019-01-26 14:58 | Nuclear Medicine Report ---
Reason: CAD WITH ANGINA PECTORIS, PALPITATIONS Procedure Date: 01/21/2019 Accession Number: [id number] / [id number] Procedure: NM - Myocardial Perfusion STR/RST CPT Code: Final Report FULL RESULT: EXAM: SINGLE-ISOTOPE EXERCISE STRESS TEST. SINGLE-ISOTOPE AND ONE-DAY REST/STRESS MYOCARDIAL PERFUSION SCANS WITH TOMOGRAPHIC IMAGING, QUANTITATIVE ANALYSIS, WALL MOTION ANALYSIS AND CALCULATION OF EJECTION FRACTION. EXAM DATE: 01/21/2019 03:44 PM. Exam made available for interpretation 01/26/2019. CLINICAL HISTORY: CAD with angina pectoris, palpitations. COMPARISON: None available. TECHNIQUE: A rest myocardial perfusion scan was done with tomography after the intravenous administration of 9.9 mCi Tc-99m sestamibi. After an appropriate delay, a treadmill exercise stress was performed according to department protocol. The exercise duration and maximum heart rate was not included in the paperwork and will be reported separately. At approximately peak heart rate, 43.5 mCi of Tc-99m sestamibi was injected for stress myocardial perfusion scan. Motion correction was applied when appropriate. Gated tomographic images were obtained for wall motion analysis and computation of left ventricular ejection fraction. FINDINGS: On visual analysis, there is an apparent mild distal anterior wall defect which may be slightly more severe on the stress images compared to the rest images. On computer analysis Summed stress score 7 Summed rest score 1 Summed difference score 6 Wall motion analysis demonstrates no focal wall motion abnormality. The left ventricular end-diastolic volume is 67 cc. The left ventricular end-systolic volume is 10 cc. The left ventricular ejection fraction is calculated to be 84%. IMPRESSION: 1. On visual analysis, mild severity partially fixed and partially reversible defect in the distal anterior wall. 2. Normal left ventricular ejection fraction of 84%. 3. Normal segmental and global wall motion. 4. Normal left ventricular cavity size, no change with stress. 5. Based on computer analysis, mildly abnormal study with moderate ischemia. Please correlate findings with stress ECG tracings and procedure notes. RADIA
== END 2019-01-21 08:56 | disposition home or self-care (01) ==
LOC: DI 08:55
PROVIDERS: ATTEND Internal Medicine Cardiovascular Disease
DX: I25.9 Chronic ischemic heart disease, unspecified (principal); R94.31 Abnormal electrocardiogram [ECG] [EKG]; I25.119 Atherosclerotic heart disease of native coronary artery with unspecified angina pectoris; R00.2 Palpitations; I10 Essential (primary) hypertension; E78.5 Hyperlipidemia, unspecified; Z95.5 Presence of coronary angioplasty implant and graft; Z82.49 Family history of ischemic heart disease and other diseases of the circulatory system
CPT/HCPCS: 78452; 93017; A9500

== ENCOUNTER 2019-02-04 10:33 | Day surgery (SDC) | payer BC ==
[2019-02-04] MEDS ORDERED: MIDAZOLAM 2 MG/2 ML VIAL IVP ONE (10:34)
[2019-02-04] MEDS ORDERED: fentaNYL 250 MCG/5 ML VIAL IVP ONE (10:34)
[2019-02-04] MEDS: LACTATED RINGERS 1,000 ML IV ONE (10:37)
[2019-02-04 13:31] VITALS: BP 105/60
== END 2019-02-04 10:34 | disposition home or self-care (01) ==
LOC: SDS 10:33
PROVIDERS: ATTEND Surgery
PROC: 0DJD8ZZ Inspection of Lower Intestinal Tract, Via Natural or Artificial Opening Endoscopic (ICD-10-PCS; principal; 2019-02-04 12:30)
DX: Z12.11 Encounter for screening for malignant neoplasm of colon (principal); K57.30 Diverticulosis of large intestine without perforation or abscess without bleeding; K64.8 Other hemorrhoids; R13.10 Dysphagia, unspecified; K21.9 Gastro-esophageal reflux disease without esophagitis; E66.9 Obesity, unspecified; Z68.36 Body mass index [BMI] 36.0-36.9, adult; Z87.891 Personal history of nicotine dependence; I10 Essential (primary) hypertension

== ENCOUNTER 2019-02-09 15:06 | Emergency (ER) | payer OTHER, BC ==
[2019-02-09 15:40] LABS: HGB - HEMOGLOBIN 14.5 g/dL (12.0-16.0); MEAN CORPUSCULAR HEMOGLOBIN 27.4 pg (27.0-31.0); MEAN CORPUSCULAR HGB CONC 33.3 g/dL (32.0-36.0); MEAN CORPUSCULAR VOLUME 82.1 fL (81.0-99.0); MEAN PLATELET VOLUME 9.4 fL (7.9-10.8); RED BLOOD COUNT 5.3 10^6/uL (4.20-5.40); RED CELL DISTRIBUTION WIDTH 15.5 % (12.0-15.0); WHITE BLOOD COUNT 7.4 x10^3/uL (4.8-10.8)
[2019-02-09 15:52] LABS: ALBUMIN 4.5 g/dL (3.2-5.5); ALBUMIN/GLOBULIN RATIO 1.2 (1.0-2.2); BILIRUBIN,TOTAL 0.6 mg/dL (0.2-1.0); CALCIUM 9.3 mg/dL (8.5-10.3); CREATININE 0.8 mg/dL (0.4-1.0); TOTAL PROTEIN 8.2 g/dL (6.7-8.2)
[2019-02-09 16:02] LABS: BILIRUBIN,URINE NEGATIVE (NEGATIVE); GLUCOSE, URINE (UA) NEGATIVE (NEGATIVE); KETONES,URINE (UA) NEGATIVE (NEGATIVE); LEUKOCYTE ESTERASE, URINE NEGATIVE (NEGATIVE); NITRITE,URINE NEGATIVE (NEGATIVE); OCCULT BLOOD,URINE MODERATE (NEGATIVE); PROTEIN,URINE NEGATIVE (NEGATIVE); UROBILINOGEN,URINE 0.2 (NORMAL) E.U./dL (NORMAL)
[2019-02-09 16:13] LABS: CLARITY,URINE CLEAR (CLEAR)
[2019-02-09 16:14] LABS: BACTERIA,URINE Rare /HPF (None Seen); RBC,URINE TNTC /HPF (0-5); SQUAMOUS EPITHELIAL CELL,UR FEW Squamous (<= Few); WBC CLUMPS,URINE PRESENT
--- NOTE | 2019-02-09 17:52 | ED Physician Documentation ---
PD HPI UPPER EXT INJURY - Stated complaint Stated Complaint: NEEDLE STICK - Chief complaint Chief Complaint: Needlestick - History obtained from History obtained from: Patient - History of Present Illness Location: Left, Finger Type of injury: Puncture wound (She received a needlestick to the left index finger after giving the patient a flu shot with a 25-gauge needle. She states she was trying to get the Band-Aid on to the patient's arm and so reached for a Band-Aid on her glove hand and accidentally punctured herself with the needle. She said it bled briefly with a small drop or beat of blood. 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: Ovarian cysts (polycystic ovary syndrome) : Other HEENT: None Psych: Anxiety Musculoskeletal: Osteoporosis Derm: None - Past Surgical History Past Surgical History: Yes General: Cholecystectomy, Appendectomy Ortho: Carpal Tunnel surgery /CAMPGROUND CARETAKER: section, Oophrectomy Cardiovascular: Coronary stent - Present Medications Home Medications: Ambulatory Orders Medication Instructions Recorded Confirmed Ezetimibe [Zetia] 10 mg PO DAILY 05/15/17 02/04/19 Propranolol [Inderal] 1 tab ORAL BID 12/25/17 02/04/19 Aspirin 325 mg PO DAILY 03/19/18 02/04/19 Sertraline [Zoloft] 50 mg PO DAILY 07/23/18 02/04/19 - Allergies Allergies/Adverse Reactions: Allergies Allergy/AdvReac Type Severity Reaction Status Date / Time amoxicillin [Amoxicillin] Allergy hepatitis Verified 02/09/19 15:17 citalopram hydrobromide * Allergy flank pain Verified 02/09/19 15:17 [From Celexa] sertraline Allergy Unknown Verified 02/09/19 15:17 simvastatin [From Zocor] Allergy flank pain Verified 02/09/19 15:17 oxycodone AdvReac Severe vomiting Verified 02/09/19 15:17 - Social History Does the pt smoke?: Yes Smoking Status: Former smoker Does the pt drink ETOH?: Yes Does the pt have substance abuse?: No - Immunizations Immunizations are current?: Yes - POLST Patient has POLST: No POLST Status: Full Code PD ED PE NORMAL - Vitals Vital signs reviewed: Yes - General General: Alert and oriented X 3, Well developed/nourished - Derm Derm: Normal color, Warm and dry - Extremities Extremities: Other (Left index finger dorsal proximal phalanx with a barely visible puncture site without any bleeding redness or swelling.) - Neuro Neuro: Alert and oriented X 3, No motor deficit, No sensory deficit Results - Vitals Vitals: Vital Signs - 24 hr 02/09/19 02/09/19 15:17 18:15 Temperature 365 C H 36.7 C Heart Rate 79 72 Respiratory 16 18 Rate Blood Pressure 139/94 H 143/106 H O2 Saturation 94 95 Oxygen O2 Source Room air - Labs Labs: Laboratory Tests 02/09/19 02/09/19 02/09/19 15:30 15:30 15:57 WBC 7.4 RBC 5.30 Hgb 14.5 Hct 43.5 MCV 82.1 MCH 27.4 MCHC 33.3 RDW 15.5 H Plt Count 348 MPV 9.4 Sodium 138 Potassium 4.1 Chloride 103 Carbon Dioxide 26 Anion Gap 9.0 BUN 13 Creatinine 0.8 Estimated GFR (MDRD) 76 L Glucose 101 H Calcium 9.3 Total Bilirubin 0.6 AST 27 ALT 27 Alkaline Phosphatase 83 Total Protein 8.2 Albumin 4.5 Globulin 3.7 Albumin/Globulin Ratio 1.2 Urine Color YELLOW Urine Clarity CLEAR Urine pH 6.0 Ur Specific [place] 1.020 Urine Protein NEGATIVE Urine Glucose (UA) NEGATIVE Urine Ketones NEGATIVE Urine Occult Blood MODERATE H Urine Nitrite NEGATIVE Urine Bilirubin NEGATIVE Urine Urobilinogen 0.2 (NORMAL) Ur Leukocyte Esterase NEGATIVE Urine RBC TNTC H Urine WBC 4-5 Urine WBC Clumps PRESENT Ur Squamous Epith Cells FEW Squamous Urine Bacteria Rare Ur Microscopic Review INDICATED Urine Culture Comments NOT INDICATED PD MEDICAL DECISION MAKING - ED course Complexity details: considered differential (Discussed with the patient the low risk nature of the exposure. She with shared decision does not want any antiviral medications. 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 This is a low risk exposure. Discharge Date/Time: 02/09/19 18:17
[2019-02-09 18:17] VITALS: BP 143/106
[2019-02-10 12:26] LABS: HEPATITIS C ANTIBODY NON-REACTIVE (NON-REACTIVE)
[2019-02-10 14:46] LABS: HIV AG/AB 4TH GEN NON-REACTIVE (NON-REACTIVE)
== END 2019-02-09 18:17 | disposition home or self-care (01) ==
LOC: ED 15:06
DX: S61.231A Puncture wound without foreign body of left index finger without damage to nail, initial encounter (principal); Z77.21 Contact with and (suspected) exposure to potentially hazardous body fluids; W46.1XXA Contact with contaminated hypodermic needle, initial encounter; Y93.F9 Activity, other caregiving; Y99.0 Civilian activity done for income or pay; Z87.891 Personal history of nicotine dependence
CPT/HCPCS: 36415; 80053; 81001; 81003; 85027; 86317; 86803; 87086; 87389; 99282; 99283

== ENCOUNTER 2019-02-19 14:27 | Outpatient (CLI) | payer BC ==
[2019-02-19] MEDS ORDERED: BUFFERED LIDOCAINE 10 ML SYRINGE ONE ×2 (14:33→15:54)
[2019-02-19] MEDS ORDERED: GADOBUTROL 10 MMOL/10 ML VIAL ONE (14:33)
[2019-02-19] MEDS ORDERED: IOTHALAMATE MEGLUMINE 50 ML VIAL ONE ×2 (14:33→15:55)
[2019-02-19] MEDS ORDERED: BUFFERED LIDOCAINE 10 ML SYRINGE IU ONE ×2 (15:31→16:00)
[2019-02-19] MEDS ORDERED: IOTHALAMATE MEGLUMINE 50 ML VIAL IVP ONE ×2 (15:31→16:00)
[2019-02-19] MEDS ORDERED: GADOBUTROL 10 MMOL/10 ML VIAL IVP ONE ×2 (15:31→16:00)
[2019-02-19] MEDS ORDERED: GADOBUTROL 7.5 MMOL/7.5 ML VIAL ONE (15:55)
[2019-02-19] MEDS ORDERED: GADOBUTROL 7.5 MMOL/7.5 ML VIAL IVP ONE (16:00)
--- NOTE | 2019-02-19 16:14 | XRAY Report ---
Reason: WRIST PAIN LT Procedure Date: 02/19/2019 Accession Number: [id number] / [id number] Procedure: FL - Arthrogram Needle Placement CPT Code: Final Report FULL RESULT: EXAM: LEFT Wrist Arthrographic Injection with Fluoroscopic Guidance EXAM DATE: 02/19/2019 03:29 PM. CLINICAL HISTORY: Wrist pain, left. COMPARISON: None. TECHNIQUE: The risks, benefits, and alternatives of the procedure were discussed with the patient. All questions were answered. Written and verbal consent were obtained. The radiocarpal joint was marked under fluoroscopy and prepped and draped in a sterile manner. Local anesthesia was performed with 1% lidocaine. A 25-gauge needle was then inserted into the radiocarpal joint. In total, 3 mL of a solution containing 25% 1% lidocaine, 25% iodinated contrast, and a 1:200 dilution of gadolinium contrast in sterile saline was then injected. The needle was removed without immediate complication. Other: None. Fluoroscopy Time: 0.2 minutes. Number of Images: 8. FINDINGS: Bones and joints: No fracture or subluxation. Injection: Fluoroscopic images demonstrate needle placement and contrast in the radiocarpal joint. Initial injection was unsuccessful as confirmed by initial MRI images. Subsequent injection demonstrates successful access to the joint. Some contrast extravasation superficial to the radiocarpal joint is therefore seen. IMPRESSION: Fluoroscopically guided arthrographic injection of the wrist. RADIA
--- NOTE | 2019-02-20 08:09 | MRI Report ---
Reason: WRIST PAIN LT Procedure Date: 02/19/2019 Accession Number: [id number] / [id number] Procedure: MRI - Arthrogram Wrist LT CPT Code: Final Report FULL RESULT: EXAM: LEFT WRIST MRI ARTHROGRAM WITH CONTRAST EXAM DATE: 02/19/2019 04:55 PM. CLINICAL HISTORY: Wrist pain with decreased range of motion. COMPARISON: WRIST 3 VIEW LT 11/24/2018 3:28 PM. ARTHROGRAM NEEDLE PLACEMENT 02/19/2019 3:24 PM. TECHNIQUE: Multiplanar, multisequence T1-weighted and fluid-sensitive sequences of the wrist after an arthrographic injection of dilute gadolinium, dictated under a separate exam. Other: None. FINDINGS: Bones: There is a cyst in the ulnar head. There is a cyst in the base of the first metacarpal. There are no foci of marrow edema. There are no visible fractures. Cartilage: There is a small full-thickness perforation of the mid substance of the TFC at the radial insertion. Contrast is visible within the distal radioulnar joint. There is mild erosion of the hyaline cartilage at the radiocarpal joint. The midcarpal joint appears normal. Ligaments: The scapholunate and lunotriquetral ligaments are intact. The visualized other intrinsic, extrinsic and collateral ligaments are unremarkable. Tendons: Contrast is visible in the extensor tendon sheaths, which appears to be secondary to the injection. The flexor tendons appear normal. Musculature: No edema or fatty atrophy. Other: The contents of the carpal tunnel, including the median nerve, are unremarkable. Guyons canal is unremarkable. There is a small periarticular cyst projecting medially from the volar aspect of the carpometacarpal joint of the thumb. The subcutaneous tissues are unremarkable. IMPRESSION: 1. Small full-thickness perforation of the TFC. 2. Mild degenerative change of the radiocarpal joint and first carpometacarpal joint. RADIA
== END 2019-02-19 14:28 | disposition home or self-care (01) ==
LOC: DI 14:27
PROVIDERS: ATTEND Orthopaedic Surgery Sports Medicine
DX: M24.132 Other articular cartilage disorders, left wrist (principal); M19.032 Primary osteoarthritis, left wrist
CPT/HCPCS: 77002

== ENCOUNTER 2019-03-17 12:32 | Outpatient (CLI) | payer BC ==
--- NOTE | 2019-03-17 14:22 | Mammography Report ---
Reason: ROUTINE SCREENING Procedure Date: 03/17/2019 Accession Number: [id number] / [id number] Procedure: DARRELL - Screening Mammo w/Levi CPT Code: Final Report FULL RESULT: EXAM: Screening Mammo w/Levi DATE: 03/17/2019 1:28 PM CLINICAL HISTORY: Routine screening TECHNIQUE: (B) - Bilateral CC and MLO views were obtained. COMPARISON: 09/08/2016, 06/28/2015, 06/04/2014, 05/07/2011 and 01/07/2008 PARENCHYMAL PATTERN: (A) - The breasts demonstrate scattered fibroglandular densities bilaterally. FINDINGS: No significant interval change. There are no suspicious masses, calcifications, or areas of distortion. IMPRESSION: Negative examination. BI-RADS category 1. RECOMMENDATION: (ANNUAL) - Recommend routine annual screening mammography. BI-RADS CATEGORY: (1) - Negative. STANDARD QUALIFYING STATEMENTS: 1. This examination was not reviewed with the aid of Computer-Aided Detection (CAD). 2. A negative or benign imaging report should not preclude biopsy if clinically suspicious findings are present. 3. Dense breasts may obscure an underlying neoplasm. 4. This examination was reviewed with the aid of 3D breast imaging (tomosynthesis).
== END 2019-03-17 12:33 | disposition home or self-care (01) ==
LOC: DI 12:32
PROVIDERS: ATTEND Internal Medicine
DX: Z12.31 Encounter for screening mammogram for malignant neoplasm of breast (principal)
CPT/HCPCS: 77063; 77067

== ENCOUNTER 2019-03-17 12:33 | Outpatient (CLI) | payer BC ==
--- NOTE | 2019-03-17 14:57 | DEXA Report ---
Reason: POSTMENOPAUSAL,OSTEOPOROSIS Procedure Date: 03/17/2019 Accession Number: [id number] / [id number] Procedure: DEX - Dexa Spine and/or Hip CPT Code: Final Report FULL RESULT: EXAM: Dexa Spine and/or Hip DATE: 03/17/2019 2:00 PM CLINICAL HISTORY: POSTMENOPAUSAL,OSTEOPOROSIS FOR FOLLOW-UP TECHNIQUE: Dual energy x-ray absorptiometry (DXA) was performed on a [employer] System. Regions measured are the AP Spine, femoral neck, and if needed forearm. COMPARISON: 06/28/2015 In accordance with the International Society for Clinical Densitometry (ISCD) guidelines, data from previous exams may be reanalyzed using current recommendations and techniques. This is done to allow a more accurate basis for comparison with the current study. FINDINGS: The data for the lumbar spine is as follows: BMD (g/cm/cm) T-SCORE Z-SCORE REGION L1 0.751 -3.2 -3.5 L2 0.898 -2.5 -2.9 L3 0.825 -3.1 -3.5 L4 0.833 -3.1 -3.4 TOTAL L3-L4 0.829 -3.1 -3.5 NOTE Only L3 and L4 were used for total lumbar spine bone mineral density to duplicate the study performed on 06/28/2015. Prior fractures have occurred at L1 and L2 per the technologist. The data for the hip is as follows: BMD (g/cm/cm) T-SCORE Z-SCORE REGION Neck 0.627 -3.0 -2.7 TOTAL 0.613 -3.1 -3.2 NOTE: The femoral neck or total proximal femur, whichever is lowest, is used for classification. * Denotes significant change at the 95% confidence level. Denotes dissimilar scan types or analysis methods. IMPRESSION: THE WHO CLASSIFICATION BASED ON THE INTERNATIONAL REFERENCE STANDARD IS OSTEOPOROSIS. THE FRACTURE RISK IS HIGH. RECOMMENDATION: Patients with diagnosis of osteoporosis or osteopenia should have regular bone mineral density assessment. For those eligible for Medicare, routine testing is allowed once every 2 years. Testing frequency can be increased for patients who have rapidly progressing disease or for those who are receiving medical therapy to restore bone mass. COMMENT: World Health Organization (WHO) definitions for osteoporosis and osteopenia: NORMAL BMD: T-score at -1.0 or higher, fracture risk is low OSTEOPENIA BMD: T-score between -1.0 and -2.5, fracture risk is increased. OSTEOPOROSIS BMD: T-score at -2.5 or lower, fracture risk is high. National Osteoporosis Foundation recommends: 1. Obtain adequate dietary calcium (at least 1200 mg per day) and vitamin D (400-800 international units per day). 2. Participate, as appropriate, in regular weightbearing and muscle-strengthening exercise. 3. Avoid tobacco use and reduce alcohol and caffeine intake. 4. For more detailed information see the website at www.NOF.org.
== END 2019-03-17 12:34 | disposition home or self-care (01) ==
LOC: DI 12:33
PROVIDERS: ATTEND Internal Medicine
DX: M81.0 Age-related osteoporosis without current pathological fracture (principal); D75.1 Secondary polycythemia
CPT/HCPCS: 77080

== ENCOUNTER 2019-03-18 08:00 | Outpatient (CLI) | payer BC | END 2019-03-18 23:59 | disposition home or self-care (01) | LOC: LAB.R 08:00 | PROVIDERS: ATTEND Physician Assistant Medical | DX: R33.9 Retention of urine, unspecified (principal) | CPT/HCPCS: 87086 ==

== ENCOUNTER 2019-06-25 07:20 | Outpatient (CLI) | payer BC ==
[2019-06-25 13:35] LABS: BASOPHILS # (AUTO) 0.1 10^3/uL (0.0-0.1); BASOPHILS % (AUTO) 0.8 %; EOSINOPHILS # (AUTO) 0.3 10^3/uL (0.0-0.7); EOSINOPHILS % (AUTO) 3.4 %; HGB - HEMOGLOBIN 13.7 g/dL (12.0-16.0); MEAN CORPUSCULAR HEMOGLOBIN 26.9 pg (27.0-31.0); MEAN CORPUSCULAR HGB CONC 31.8 g/dL (32.0-36.0); MEAN CORPUSCULAR VOLUME 84.5 fL (81.0-99.0); MONOCYTES # (AUTO) 0.7 10^3/uL (0.0-1.0); MONOCYTES % (AUTO) 8.9 %; NEUTROPHILS # (AUTO) 4.4 10^3/uL (1.5-6.6); NEUTROPHILS % (AUTO) 59.6 %; PLT - PLATELET COUNT 341 10^3/uL (130-450); WHITE BLOOD COUNT 7.3 x10^3/uL (4.8-10.8)
[2019-06-25 14:00] LABS: ALBUMIN/GLOBULIN RATIO 1.2 (1.0-2.2); BILIRUBIN,TOTAL 0.8 mg/dL (0.2-1.0); CREATININE 0.8 mg/dL (0.4-1.0); TOTAL PROTEIN 7.4 g/dL (6.7-8.2)
[2019-06-25 14:04] LABS: CHOL/HDL RATIO 4.8 (<4.4); CHOLESTEROL 252 mg/dL; HDL CHOLESTEROL 53 mg/dL; LDL CHOLESTEROL,CALCULATED 132 mg/dL; LDL/HDL RATIO 2.5 (<4.4); VLDL CHOLESTEROL 67 mg/dL
== END 2019-06-25 23:59 | disposition home or self-care (01) ==
LOC: LAB.WCP 07:20
PROVIDERS: ATTEND Physician Assistant Medical
DX: Z00.00 Encounter for general adult medical examination without abnormal findings (principal); E78.5 Hyperlipidemia, unspecified; R10.12 Left upper quadrant pain
CPT/HCPCS: 36415; 80053; 80061; 83690; 83721; 84443; 85025

== ENCOUNTER 2019-06-25 10:19 | Outpatient (CLI) | payer BC ==
[2019-06-25 10:38] LABS: CREATININE 0.8 mg/dL (0.4-1.0)
[2019-06-25] MEDS ORDERED: IOVERSOL 320 100 ML VIAL IVP ONE ×2 (10:41→14:33)
[2019-06-25] MEDS ORDERED: IOVERSOL 320 50 ML VIAL ONE (10:41)
--- NOTE | 2019-06-25 13:20 | CT Report ---
Reason: ABDOMINAL PAIN,ULQ Procedure Date: 06/25/2019 Accession Number: [id number] / [id number] Procedure: CT - ABDOMEN W CPT Code: Addended Final Report FULL RESULT: EXAM: CT ABDOMEN WITH CONTRAST EXAM DATE: 06/25/2019 11:59 AM. CLINICAL HISTORY: Left upper quadrant abdominal pain. COMPARISONS: CT of the abdomen and pelvis from 12/15/2018, 12/20/2016. TECHNIQUE: Multiphasic CT of abdomen with IV contrast: 100 cc Optiray 320. Enteric contrast: Yes. Reconstructions: Coronal and sagittal. In accordance with CT protocol optimization, one or more of the following dose reduction techniques were utilized for this exam: automated exposure control, adjustment of mA and/or KV based on patient size, or use of iterative reconstructive technique. FINDINGS: Lung Bases: There are linear and groundglass opacities in bilateral lung bases, most compatible with atelectasis. There is partial visualization of a central venous catheter, terminating near the superior cavoatrial junction. Multivessel coronary artery calcification present. Liver: A subcentimeter hypoattenuating focus in segment 6 is too small to characterize but has not significantly changed from the prior examination (series 3, image 34). Gallbladder/bile ducts: Gallbladder is surgically absent. Common bile duct measures approximately 12 mm proximally (series 5, image 27), which is considered mildly dilated; however, the duct tapers distally, and there is no intrahepatic biliary ductal dilation. Furthermore, this is similar to the prior examination, suggesting this most likely represents postcholecystectomy change. Spleen: Unremarkable. Pancreas: Unremarkable. Adrenal glands: There is a 14 x 13 mm left adrenal nodule (series 3, image 30), which is not significantly changed since 2017, suggestive of an adenoma. Right adrenal gland is unremarkable. Kidneys: Right kidney is surgically absent. No focal renal lesion or hydronephrosis. Bowel: There is a small area of inflammatory stranding and slight peritoneal thickening adjacent to the mid descending colon in the left abdomen (series 3, image 38 and series 5, image 29). This is new from the prior examination. Although not demonstrating typical appearance, this is suspicious for epiploic appendagitis. No colonic diverticuli are demonstrated in this region on the current or on prior examinations. No other areas of bowel inflammation demonstrated. No evidence of bowel obstruction in the visualized portions. Bones: There appears to be subacute fracture of the left anterolateral fifth rib (series 3, image 10), which is new from the prior examination. Old T12-L2 compression fractures have not significantly changed. Other: No retroperitoneal adenopathy. The uterus and urinary bladder are partially visualized and are unremarkable. IMPRESSION: 1. New, subtle stranding and peritoneal thickening adjacent to the mid descending colon. Although not demonstrating typical appearance, this is suspicious for epiploic appendagitis as no definite diverticuli are demonstrated in this region on the current or prior examination. 2. Subacute fracture of the left anterolateral fifth rib, new from the prior CT. No acute fracture demonstrated. 3. No significant change in left adrenal nodule since 2017, suggestive of adenoma. RADIA The call report notification system was initiated by Dr. Paul Russ at 01:02 PM on 06/25/2019. The above call report findings were discussed with Dr. Maria Alejandra Lynch by Dr. Paul Russ at 01:12 PM on 06/25/2019. ADDENDUM: 06/25/19 13:[address] report describes history of carcinoid/neuroendocrine tumor, potentially of the appendix, which appeared ruptured on the previous CT of 12/20/2016. Given that the findings adjacent to the descending colon do not have the classical appearance of epiploic appendagitis, consider follow-up CT in 3 months to ensure stability or resolution of this finding and confidently exclude the remote possibility of peritoneal metastasis/recurrence. Findings again discussed with Dr. Lynch by Dr. Russ at approximately 1:55 PM on 06/25/2019.
[2019-06-25] MEDS ORDERED: IOVERSOL 320 50 ML VIAL PO ONE (14:33)
== END 2019-06-25 10:20 | disposition home or self-care (01) ==
LOC: LAB 10:19
PROVIDERS: ATTEND Family Medicine
DX: Z00.00 Encounter for general adult medical examination without abnormal findings (principal); R93.5 Abnormal findings on diagnostic imaging of other abdominal regions, including retroperitoneum; S22.32XA Fracture of one rib, left side, initial encounter for closed fracture; R10.12 Left upper quadrant pain; E78.5 Hyperlipidemia, unspecified
CPT/HCPCS: 36415; 74160; 80061; 82565; 83690; Q9967; 80053; 84443; 85025

== ENCOUNTER 2019-07-15 07:00 | Outpatient (CLI) | payer BC | END 2019-07-15 23:59 | disposition home or self-care (01) | LOC: LAB.R 07:00 | PROVIDERS: ATTEND Nurse Practitioner | DX: I25.10 Atherosclerotic heart disease of native coronary artery without angina pectoris (principal) | CPT/HCPCS: 81599 ==

== ENCOUNTER 2019-07-21 09:41 | Emergency (ER) | payer BC ==
[2019-07-21] MEDS ORDERED: SODIUM CHLORIDE 0.9% 1,000 ML IV STA ×2 (10:41→13:44)
--- NOTE | 2019-07-21 10:42 | ED Physician Documentation ---
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 The patient reports Feelings of lightheadedness dizziness nausea and near syncope. She states that exertion brings on her dizziness. She reports clean coronaries from her cath. Review of Systems Constitutional: reports: Fatigue, Sweats. denies: Fever Eyes: denies: Decreased vision Ears: denies: Ear pain Nose: denies: Rhinorrhea / runny nose, Congestion Throat: denies: Sore throat Cardiac: denies: Chest pain / pressure, Palpitations Respiratory: reports: Dyspnea. denies: Cough GI: reports: Abdominal Pain, Nausea, Vomiting : denies: Dysuria, Frequency Skin: denies: Rash Musculoskeletal: reports: Back pain. denies: Neck pain Neurologic: reports: Generalized weakness. 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: Ovarian cysts (polycystic ovary syndrome) : Other HEENT: None Psych: Anxiety Musculoskeletal: Osteoporosis Derm: None - Past Surgical History Past Surgical History: Yes General: Cholecystectomy, Appendectomy Ortho: Carpal Tunnel surgery /GUEST SERVICES AMBASSADOR: section, Oophrectomy Cardiovascular: Coronary stent - Present Medications Home Medications: Ambulatory Orders Medication Instructions Recorded Confirmed Ezetimibe [Zetia] 10 mg PO DAILY 05/15/17 07/08/19 Propranolol [Inderal] 1 tab ORAL BID 12/25/17 07/08/19 Sertraline [Zoloft] 100 mg PO DAILY 07/23/18 07/08/19 Cholecalciferol (Vitamin D3) 5,000 units PO DAILY 04/13/19 07/08/19 [Vitamin D3] Cranberry 500 mg PO DAILY 04/13/19 07/08/19 Ferrous Sulfate 325 mg PO DAILY 04/13/19 07/08/19 Mv,Vikas,Iron,Mn/Folic Acid/Chol 1 cap PO DAILY 04/13/19 07/08/19 [Hair, Skin and Nails Capsule] Zolpidem [Ambien] 5 mg PO PRN PRN 05/06/19 07/08/19 Isosorbide Mononitrate ER [Imdur] 30 mg PO DAILY 07/08/19 07/08/19 - Allergies Allergies/Adverse Reactions: Allergies Allergy/AdvReac Type Severity Reaction Status Date / Time amoxicillin [Amoxicillin] Allergy hepatitis Verified 07/21/19 09:54 citalopram hydrobromide * Allergy flank pain Verified 07/21/19 09:54 [From Celexa] sertraline Allergy Unknown Verified 07/21/19 09:54 simvastatin [From Zocor] Allergy flank pain Verified 07/21/19 09:54 oxycodone AdvReac Severe vomiting Verified 07/21/19 09:54 - Social History Does the pt smoke?: Yes Smoking Status: Former smoker Does the pt drink ETOH?: Yes Does the pt have substance abuse?: No - Immunizations Immunizations are current?: Yes - POLST Patient has POLST: No POLST Status: Full Code PD ED PE NORMAL - Vitals Vital signs reviewed: Yes (hypertensive ) - General General: Alert and oriented X 3, Well developed/nourished, Other (depressed affect ) - HEENT HEENT: Atraumatic, PERRL, EOMI - Neck Neck: Supple, no meningeal sign - Cardiac Cardiac: RRR, No murmur - Respiratory Respiratory: No respiratory distress, Clear bilaterally - Abdomen Abdomen: Normal bowel sounds, Soft, Non tender, Non distended, No organomegaly - Back Back: No CVA TTP, No spinal TTP - Derm Derm: Normal color, Warm and dry, No rash - Extremities Extremities: No deformity, No edema - Neuro Neuro: Alert and oriented X 3, 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, No motor deficit, No sensory deficit, Normal speech Eye Opening: Spontaneous Motor: Obeys Commands Verbal: Oriented GCS Score: 15 - Psych Psych: Other (mood is withdrawn and the affect is flat.) Results - Vitals Vitals: Vital Signs - 24 hr 07/21/19 07/21/19 07/21/19 09:52 11:00 11:30 Temperature 36.8 C Heart Rate 66 61 61 Respiratory 18 16 16 Rate Blood Pressure 113/82 H 115/87 H 111/84 H O2 Saturation 97 96 95 07/21/19 07/21/19 12:00 13:00 Temperature Heart Rate 62 65 Respiratory 14 11 L Rate Blood Pressure 117/81 H 107/81 H O2 Saturation 97 94 Oxygen O2 Source Room air - EKG (time done) 1006 Rate: Rate (enter#) (71) Ischemia: Q waves Compare to prior EKG: Changed from prior EKG (SPT 12-20-2016 the QT interval has noramlized) Computer interpretation: Agree with computer - Labs Labs: Laboratory Tests 07/21/19 07/21/19 07/21/19 10:25 10:25 10:25 WBC 7.6 RBC 4.63 Hgb 12.5 Hct 38.2 MCV 82.5 MCH 27.0 MCHC 32.7 RDW 14.6 Plt Count 355 MPV 9.8 Neut # (Auto) 4.7 Lymph # (Auto) 2.0 Hamlin # (Auto) 0.7 Eos # (Auto) 0.2 Baso # (Auto) 0.1 Absolute Nucleated RBC 0.00 Nucleated RBC % 0.0 Sodium 136 Potassium 3.7 Chloride 103 Carbon Dioxide 23 Anion Gap 10.0 BUN 16 Creatinine 0.8 Estimated GFR (MDRD) 76 L Glucose 103 H Lactic Acid Calcium 9.1 Total Bilirubin 1.1 H AST 29 ALT 22 Alkaline Phosphatase 79 Troponin I High Sens 3.7 Total Protein 7.5 Albumin 4.0 Globulin 3.5 Albumin/Globulin Ratio 1.1 Lipase 31 Urine Color Urine Clarity Urine pH Ur Specific Alliance Urine Protein Urine Glucose (UA) Urine Ketones Urine Occult Blood Urine Nitrite Urine Bilirubin Urine Urobilinogen Ur Leukocyte Esterase Ur Microscopic Review Urine Culture Comments 07/21/19 07/21/19 11:30 12:30 WBC RBC Hgb Hct MCV MCH MCHC RDW Plt Count MPV Neut # (Auto) Lymph # (Auto) Hamlin # (Auto) Eos # (Auto) Baso # (Auto) Absolute Nucleated RBC Nucleated RBC % Sodium Potassium Chloride Carbon Dioxide Anion Gap BUN Creatinine Estimated GFR (MDRD) Glucose Lactic Acid 0.9 Calcium Total Bilirubin AST ALT Alkaline Phosphatase Troponin I High Sens Total Protein Albumin Globulin Albumin/Globulin Ratio Lipase Urine Color YELLOW Urine Clarity CLEAR Urine pH 5.5 Ur Specific Alliance 1.025 Urine Protein NEGATIVE Urine Glucose (UA) NEGATIVE Urine Ketones NEGATIVE Urine Occult Blood NEGATIVE Urine Nitrite NEGATIVE Urine Bilirubin NEGATIVE Urine Urobilinogen 0.2 (NORMAL) Ur Leukocyte Esterase NEGATIVE Ur Microscopic Review NOT INDICATED Urine Culture Comments NOT INDICATED Procedures - IVC sono (time) 1035 Bedside IVC sono: IVC measures (cm) (0.72), IVC collapsed c insp (cm) (complete), Significant dehydration (est close to 3 liter deficit) PD MEDICAL DECISION MAKING - ED course Complexity details: reviewed old records, reviewed results, re-evaluated patient, considered differential, d/w patient ED course: 48-year-old female returns perform cardiac catheterization to attempt to go to work and has near syncope. She is only 3 days out from her procedure and she is found to be significantly dehydrated on interrogation of the IVC. She is administered fluids and feels improved. The rest of her blood work-up is unremarkable including sensitive troponin potassium BUN and creatinine. Departure - Departure Disposition: 01 Home, Self Care Clinical Impression: Dehydration Condition: Stable Instructions: ED Dehydration Follow-Up: Nevaeh Peters ARNP, [employer] [Primary Care Provider] - Forms: Activity restrictions Discharge Date/Time: 07/21/19 16:30
[2019-07-21 10:51] LABS: BASOPHILS # (AUTO) 0.1 10^3/uL (0.0-0.1); BASOPHILS % (AUTO) 0.7 %; EOSINOPHILS # (AUTO) 0.2 10^3/uL (0.0-0.7); EOSINOPHILS % (AUTO) 2.1 %; HGB - HEMOGLOBIN 12.5 g/dL (12.0-16.0); LYMPHOCYTES % (AUTO) 26.1 %; MEAN CORPUSCULAR HGB CONC 32.7 g/dL (32.0-36.0); MEAN CORPUSCULAR VOLUME 82.5 fL (81.0-99.0); MEAN PLATELET VOLUME 9.8 fL (7.9-10.8); MONOCYTES # (AUTO) 0.7 10^3/uL (0.0-1.0); MONOCYTES % (AUTO) 8.7 %; NEUTROPHILS # (AUTO) 4.7 10^3/uL (1.5-6.6); PLT - PLATELET COUNT 355 10^3/uL (130-450); RED BLOOD COUNT 4.63 10^6/uL (4.20-5.40); RED CELL DISTRIBUTION WIDTH 14.6 % (12.0-15.0); WHITE BLOOD COUNT 7.6 x10^3/uL (4.8-10.8)
[2019-07-21 11:00] LABS: ALBUMIN/GLOBULIN RATIO 1.1 (1.0-2.2); BILIRUBIN,TOTAL 1.1 mg/dL (0.2-1.0); CALCIUM 9.1 mg/dL (8.5-10.3); CREATININE 0.8 mg/dL (0.4-1.0); TOTAL PROTEIN 7.5 g/dL (6.7-8.2)
[2019-07-21 12:37] LABS: BILIRUBIN,URINE NEGATIVE (NEGATIVE); GLUCOSE, URINE (UA) NEGATIVE (NEGATIVE); KETONES,URINE (UA) NEGATIVE (NEGATIVE); LEUKOCYTE ESTERASE, URINE NEGATIVE (NEGATIVE); NITRITE,URINE NEGATIVE (NEGATIVE); OCCULT BLOOD,URINE NEGATIVE (NEGATIVE); PH,URINE 5.5 PH (5.0-7.5); PROTEIN,URINE NEGATIVE (NEGATIVE); UROBILINOGEN,URINE 0.2 (NORMAL) E.U./dL (NORMAL)
[2019-07-21 12:39] LABS: CLARITY,URINE CLEAR (CLEAR)
[2019-07-21 13:26] VITALS: BP 107/81
== END 2019-07-21 16:30 | disposition home or self-care (01) ==
LOC: ED 09:41
DX: E86.0 Dehydration (principal); Z95.5 Presence of coronary angioplasty implant and graft; Z87.891 Personal history of nicotine dependence
CPT/HCPCS: 36415; 80053; 81001; 81003; 83605; 83690; 84484; 85025; 87040; 87086; 93005; 96361; 96374; 99284

== ENCOUNTER 2019-08-24 08:14 | Outpatient (CLI) | payer BC ==
--- NOTE | 2019-08-24 17:40 | XRAY Report ---
Reason: RIGHT FINGER PAIN Procedure Date: 08/24/2019 Accession Number: [id number] / [id number] Procedure: WCP - Finger(s) RT CPT Code: Final Report FULL RESULT: PROCEDURE: Finger(s) RT INDICATIONS: RIGHT FINGER PAIN TECHNIQUE: AP hand, right views of the for finger(s) acquired. COMPARISON: None FINDINGS: Bones: No fractures or dislocations. No suspicious bony lesions. Soft tissues: No suspicious soft tissue calcifications. IMPRESSION: No visualized acute fracture or dislocation. However, occult injury cannot be excluded. Recommend short interval imaging follow-up in 7-10 days as clinically indicated for additional evaluation. Reviewed by: Blanquita Clakr MD on 08/24/2019 5:39 PM PDT Approved by: Blanquita Clark MD on 08/24/2019 5:39 PM PDT Station ID: [id number]
== END 2019-08-24 23:59 | disposition home or self-care (01) ==
LOC: DI.WCP 08:14
PROVIDERS: ATTEND Nurse Practitioner
DX: M79.644 Pain in right finger(s) (principal)
CPT/HCPCS: 73140

== ENCOUNTER 2019-12-24 08:16 | Outpatient (CLI) | payer BC ==
[2019-12-24 12:07] LABS: BASOPHILS # (AUTO) 0.1 10^3/uL (0.0-0.1); BASOPHILS % (AUTO) 0.7 %; EOSINOPHILS # (AUTO) 0.2 10^3/uL (0.0-0.7); HGB - HEMOGLOBIN 14.6 g/dL (12.0-16.0); LYMPHOCYTES # (AUTO) 1.9 10^3/uL (1.5-3.5); MEAN CORPUSCULAR HGB CONC 31.5 g/dL (32.0-36.0); MEAN CORPUSCULAR VOLUME 85.8 fL (81.0-99.0); MEAN PLATELET VOLUME 10.1 fL (7.9-10.8); MONOCYTES # (AUTO) 0.6 10^3/uL (0.0-1.0); MONOCYTES % (AUTO) 7.8 %; NEUTROPHILS # (AUTO) 4.7 10^3/uL (1.5-6.6); NEUTROPHILS % (AUTO) 63.2 %; PLT - PLATELET COUNT 353 10^3/uL (130-450); RED BLOOD COUNT 5.41 10^6/uL (4.20-5.40); RED CELL DISTRIBUTION WIDTH 17.5 % (12.0-15.0); WHITE BLOOD COUNT 7.4 x10^3/uL (4.8-10.8)
[2019-12-24 13:55] LABS: ALBUMIN 4.2 g/dL (3.2-5.5); ALBUMIN/GLOBULIN RATIO 1.1 (1.0-2.2); ALKALINE PHOSPHATASE 85 IU/L (42-121); ALT ALANINE AMINOTRANSFERASE 26 IU/L (10-60); AST ASPARTATE AMINOTRANSFERASE 29 IU/L (10-42); BILIRUBIN,TOTAL 0.5 mg/dL (0.2-1.0); BUN - BLOOD UREA NITROGEN 12 mg/dL (6-20); CARBON DIOXIDE - CO2 25 mmol/L (21-32); CHLORIDE 105 mmol/L (101-111); CHOL/HDL RATIO 4.2 (<4.4); CHOLESTEROL 229 mg/dL; CREATININE 0.7 mg/dL (0.4-1.0); GLUCOSE 103 mg/dL (70-100); HDL CHOLESTEROL 55 mg/dL; SODIUM 139 mmol/L (135-145); TOTAL PROTEIN 7.9 g/dL (6.7-8.2)
[2019-12-24 14:41] LABS: LDL CHOLESTEROL,DIRECT 69 mg/dL; LDLD/HDL RATIO 1.3 (<4.4)
== END 2019-12-24 23:59 | disposition home or self-care (01) ==
LOC: LAB.WCP 08:16
PROVIDERS: ATTEND Nurse Practitioner
DX: E78.5 Hyperlipidemia, unspecified (principal); D75.1 Secondary polycythemia; I10 Essential (primary) hypertension; I25.10 Atherosclerotic heart disease of native coronary artery without angina pectoris
CPT/HCPCS: 36415; 80053; 80061; 83721; 85025

== ENCOUNTER 2020-01-04 06:27 | Day surgery (SDC) | payer BC ==
[2020-01-04] MEDS ORDERED: MIDAZOLAM 2 MG/2 ML VIAL IVP ONE (06:28)
[2020-01-04] MEDS ORDERED: fentaNYL 250 MCG/5 ML VIAL IVP ONE (06:28)
[2020-01-04] MEDS ORDERED: LACTATED RINGERS 1,000 ML IV ONE (07:06)
[2020-01-04] MEDS ORDERED: LIDO GARGLE 30 ML BOTTLE ONE (08:08)
[2020-01-04] MEDS ORDERED: BENZOCAINE/TETRACAINE/BUTAMBEN 20 GM TOP ONE (08:10)
[2020-01-04] MEDS ORDERED: LIDO GARGLE 30 ML BOTTLE PO ONE (08:10)
[2020-01-04] MEDS ORDERED: LACTATED RINGERS 500 ML IV ONE (08:37)
[2020-01-04 09:16] VITALS: BP 111/73
== END 2020-01-04 06:28 | disposition home or self-care (01) ==
LOC: SDS 06:27
PROVIDERS: ATTEND Surgery
PROC: 0DB68ZX Excision of Stomach, Via Natural or Artificial Opening Endoscopic, Diagnostic (ICD-10-PCS; 2020-01-04)
PROC: 0DB58ZX Excision of Esophagus, Via Natural or Artificial Opening Endoscopic, Diagnostic (ICD-10-PCS; 2020-01-04)
PROC: 0DB48ZX Excision of Esophagogastric Junction, Via Natural or Artificial Opening Endoscopic, Diagnostic (ICD-10-PCS; 2020-01-04)
PROC: 0DB98ZX Excision of Duodenum, Via Natural or Artificial Opening Endoscopic, Diagnostic (ICD-10-PCS; principal; 2020-01-04 07:30)
DX: K22.70 Barrett's esophagus without dysplasia (principal); K21.9 Gastro-esophageal reflux disease without esophagitis; R10.9 Unspecified abdominal pain; Z87.891 Personal history of nicotine dependence
CPT/HCPCS: 43239; A9270; J3010; J7120

== ENCOUNTER 2020-05-13 10:59 | Outpatient (CLI) | payer BC ==
--- NOTE | 2020-05-16 12:40 | Mammography Report ---
BILATERAL DIGITAL DIAGNOSTIC MAMMOGRAM 3D/2D: 05/13/2020 CLINICAL: Nipple discharge, both breasts, bloody. Comparison is made to exams dated: 03/17/2019 mammogram, 09/08/2016 mammogram, 06/28/2015 mammogram, 05/26 mammogram, 05/07/2011 mammogram, and 05/07/2011 ultrasound - [facility]. Ther e are scattered fibroglandular elements in both breasts. No significant masses, calcifications, or other findings are seen in either breast. There has been no significant interval change. IMPRESSION: NEGATIVE There is no mammographic evidence of malignancy. A 1 year screening mammogram is recommended. This exam was interpreted at Station ID: [id number]. NOTE: For mammograms, a report in lay terms will be sent to the patient. Approximately 15% of breast malignancies will not be visualized mammographically. In the management of a palpable breast mass, a negative mammogram must not discourage biopsy of a clinically suspicious lesion. Electronically Signed By: Blair Cardenas M.D., jr/andrew:05/13/2020 11:41:29 ACR BI-RADS Category 1: Negative 3341F PARENCHYMAL PATTERN: (A) - The breast(s) demonstrate(s) scattered fibroglandular densities. BI-RADS CATEGORY: (1) - 1 RECOMMENDATION: (ANNUAL) - Recommend routine annual screening mammography. [id number] 1 year screening LATERALITY: (B)
== END 2020-05-13 11:00 | disposition home or self-care (01) ==
LOC: DI 10:59
PROVIDERS: ATTEND Family Medicine
DX: N64.52 Nipple discharge (principal); E28.2 Polycystic ovarian syndrome; R73.9 Hyperglycemia, unspecified
CPT/HCPCS: 36415; 82951; 82952; 83036

== ENCOUNTER 2020-05-13 11:46 | Outpatient (CLI) | payer BC ==
[2020-05-13 12:27] LABS: GTT GLUCOSE,FASTING 96 mg/dL (70-100)
[2020-05-13 12:32] LABS: ESTIMATED AVERAGE GLUCOSE 120 mg/dL (70-100); HEMOGLOBIN A1c% 5.8 % (4.27-6.07)
== END 2020-05-13 11:47 | disposition home or self-care (01) ==
LOC: LAB 11:46
PROVIDERS: ATTEND Nurse Practitioner
DX: E28.2 Polycystic ovarian syndrome (principal); R73.9 Hyperglycemia, unspecified
CPT/HCPCS: 36415; 82951; 82952; 83036

== ENCOUNTER 2020-05-20 08:57 | Outpatient (CLI) | payer BC ==
--- NOTE | 2020-05-20 14:17 | Nuclear Medicine Report ---
PROCEDURE: Gastric Empty Small Bowel INDICATIONS: Acute abdominal pain RADIOPHARMACEUTICAL: 1 mCi Tc-99m sulfur colloid in an egg sandwich. TECHNIQUE: A Tc-99m labeled sulfur colloid labeled egg sandwich or oatmeal was served to the patient. Anterior and posterior planar images of the abdomen were obtained at 0 minutes and 30 minutes, then at hourly intervals up to 4 hours. The patient was upright and ambulating during the interval. COMPARISON: None available. FINDINGS: The stomach has normal size, morphology, and position. There is normal emptying of solid gastric con tents from the stomach by visual inspection. No gastroesophageal reflux is visualized. The percentage of tracer retained at specific time points are as follows: Time point Percent gastric retention Normal range 30 minutes 95 70% or more 1 hour 72 30% to 90% 2 hours 10 60% or less 3 hours 4 30% or less 4 hours 2 10% or less IMPRESSION: Normal gastric imaging study. Reviewed by: Blair Cardenas MD on 05/20/2020 2:15 PM PDT Approved by: Blair Cardenas MD on 05/20/2020 2:15 PM PDT Station ID: [id number]
== END 2020-05-20 08:58 | disposition home or self-care (01) ==
LOC: DI 08:57
PROVIDERS: ATTEND Surgery
DX: R10.9 Unspecified abdominal pain (principal); C7A.020 Malignant carcinoid tumor of the appendix; D35.02 Benign neoplasm of left adrenal gland; Z90.49 Acquired absence of other specified parts of digestive tract
CPT/HCPCS: 36415; 71260; 74177; 78265; Q9967; 80053; 81599; 82565; 85025

== ENCOUNTER 2020-08-01 08:00 | Outpatient (CLI) | payer BC ==
[2020-08-01 13:38] LABS: ALBUMIN 4.4 g/dL (3.2-5.5); ALKALINE PHOSPHATASE 86 IU/L (42-121); ALT ALANINE AMINOTRANSFERASE 22 IU/L (10-60); AST ASPARTATE AMINOTRANSFERASE 25 IU/L (10-42); BILIRUBIN,TOTAL 0.6 mg/dL (0.2-1.0); CHOL/HDL RATIO 4.4 (<4.4); CHOLESTEROL 240 mg/dL; HDL CHOLESTEROL 54 mg/dL; LDL CHOLESTEROL,CALCULATED 110 mg/dL; TOTAL PROTEIN 7.8 g/dL (6.7-8.2); TRIGLYCERIDES 382 mg/dL; VLDL CHOLESTEROL 76 mg/dL
[2020-08-01 13:48] LABS: BILIRUBIN,DIRECT < 0.1 mg/dL (0.1-0.5)
== END 2020-08-01 23:59 | disposition home or self-care (01) ==
LOC: LAB.WCP 08:00
PROVIDERS: ATTEND Internal Medicine Cardiovascular Disease
DX: I25.10 Atherosclerotic heart disease of native coronary artery without angina pectoris (principal)
CPT/HCPCS: 36415; 80061; 80076; 83721

== ENCOUNTER 2020-12-21 17:30 | Outpatient (CLI) | payer BC | END 2020-12-21 23:59 | disposition home or self-care (01) | LOC: LAB.WCP 17:30 | PROVIDERS: ATTEND Physician Assistant Medical | DX: R07.0 Pain in throat (principal) | CPT/HCPCS: 87070 ==

== ENCOUNTER 2021-03-10 14:17 | Outpatient (CLI) | payer BC ==
--- NOTE | 2021-03-10 16:03 | DEXA Report ---
PROCEDURE: Dexa Spine and/or Hip INDICATIONS: OSTEOPOROSIS TECHNIQUE: Dual energy x-ray absorptiometry (DXA) was performed on a [employer] System. Regions measur ed are the AP Spine, femoral neck, and if needed forearm. COMPARISON: 03/17/2019 FINDINGS: Lumbar Spine: Bone Mineral Density 0.841 g/cm/cm,T score -2.8, compared to -3.1 on prior exam noting total spine was designated with only using L3-4 on prior study. Left Hip: Bone Mineral Density 0.636 g/cm/cm,T score -3.0, compared to -3.1 Left Femoral Neck: Bone Mineral Density 0.645 g/cm/cm, T score -2.8, compared to -3.0 (T score greater or equal to -1.0: NORMAL) (T score from -1.1 to -2.4: OSTEOPENIA) (T score less than or equal to -2.5 to: OSTEOPOROSIS) Impression: Persistent osteoporosis within the spine, hip and femoral neck minimally improved within the spine and femoral neck. Patients with diagnosis of osteoporosis or osteopenia should have regular bone mineral density assess ment. For those eligible for Medicare, routine testing is allowed once every 2 years. Testing frequ ency can be increased for patients who have rapidly progressing disease or for those who are receivin g medical therapy to restore bone mass. Reviewed by: Blanquita Clark MD on 03/10/2021 4:02 PM PST Approved by: Blanquita Clark MD on 03/10/2021 4:02 PM PST Station ID: [id number]
== END 2021-03-10 14:18 | disposition home or self-care (01) ==
LOC: DI 14:17
PROVIDERS: ATTEND Physician Assistant Medical
DX: M81.0 Age-related osteoporosis without current pathological fracture (principal)

== ENCOUNTER 2021-05-05 09:34 | Outpatient (CLI) | payer BC ==
[2021-05-05] MEDS ORDERED: IOVERSOL 320 50 ML VIAL ONE (10:23)
[2021-05-05] MEDS ORDERED: IOVERSOL 320 100 ML VIAL IVP ONE (10:23)
--- NOTE | 2021-05-05 16:32 | CT Report ---
PROCEDURE: CHEST W INDICATIONS: SECONDARY POLYCYTHEMIA CONTRAST: IV CONTRAST: Optiray 320 ml: 100 PO CONTRAST: Optiray 320 ml50 TECHNIQUE: After the administration of intravenous contrast, 1 mm axial images were acquired from the pulmonary apices through the posterior costophrenic angles. Axial 5 mm soft tissue kernel reconstructions were performed as well as 8 mm axial MIP and coronal and sagittal 5 mm reformations. For radiation dose reduction, the following was used: automated exposure control, adjustment of mA and/or kV according to patient size. COMPARISON: 05/20/2020. FINDINGS: Image quality: Excellent. Lungs and pleura: No acute air space opacities. No pleural effusions or pneumothorax. Central and peripheral airways are patent and normal in caliber. Mediastinum: Heart size is normal. No pericardial effusion. No mediastinal or hilar adenopathy by size criteria. Thoracic aorta and central pulmonary arteries are normal in size. Esophagus is eldon l in caliber. No hiatal hernia. Bones and chest wall: No suspicious bony lesions. No acute vertebral body compression fractures. Ch ronic mild to moderate T12 compression. No axillary or supraclavicular adenopathy by size criteria. The thyroid is normal in size and there are no incidental findings.. Right chest Port-A-Cath. Abdomen: Visualized upper abdominal solid organs appear normal. Upper abdominal bowel loops are nor mal in caliber. IMPRESSION: No evidence of malignancy in the chest. No evidence of acute pulmonary process. CLINICAL RECOMMENDATION STATEMENTS: In patients <35 years with an ITN detected on CT, MRI, or extrathyroidal ultrasound, the Committee re commends further evaluation with dedicated thyroid ultrasound if the nodule is "e1 cm and has no susp icious imaging features, and if the patient has normal life expectancy. In patients "e35 years with an ITN detected on CT, MRI, or extrathyroidal ultrasound, the Committee r ecommends further evaluation with dedicated thyroid ultrasound if the nodule is "e1.5 cm and has no s uspicious imaging features, and if the patient has normal life expectancy. (ACR, 2014) Reviewed by: Moose Davies MD on 05/05/2021 3:31 PM AKST Approved by: Moose Davies MD on 05/05/2021 3:31 PM [place] Station ID: [id number]
--- NOTE | 2021-05-05 16:37 | CT Report ---
PROCEDURE: Abdomen/Pelvis W INDICATIONS: SECONDARY POLYCYTHEMIA CONTRAST: IV CONTRAST: Optiray 320 ml: 100 PO CONTRAST: Optiray 320 ml50 TECHNIQUE: After the administration of oral and intravenous contrast, 5 mm thick sections acquired from the diap hragms to the symphysis. 5 mm thick coronal and sagittal reformats were acquired. For radiation dos e reduction, the following was used: automated exposure control, adjustment of mA and/or kV accordin g to patient size. COMPARISON: 05/20/2020, bone densitometry study dated 03/10/2021 FINDINGS: Image quality: Excellent. ABDOMEN: Lung bases: Lung bases are clear. Heart size is normal. Solid organs: Liver and spleen are normal in size and enhancement. Gallbladder is surgically absent . There is present in the biliary tree, as before. Biliary system is non dilated. Pancreas enhances normally. No adrenal nodules. Kidneys demonstrate normal size and enhancement, without hydronephro sis. Peritoneum and bowel: Bowel loops demonstrate normal wall thickness and caliber. No free fluid or a ir. Appendectomy clips. Nodes and vessels: No retroperitoneal or mesenteric adenopathy by size criteria. Aorta and inferior vena cava are normal in size. Miscellaneous: No ventral hernias. PELVIS: Genitourinary: Bladder wall thickness is normal. The bladder is quite distended. It measures 16.6 c m in craniocaudal dimension. Miscellaneous: No inguinal hernias or adenopathy. Bones: No suspicious bony lesions. Old T12 and L2 compression fractures.. IMPRESSION: 1. No evidence of malignancy in the abdomen and pelvis. 2. No splenomegaly or lymphadenopathy. 3. Old compression fractures, indicating severe osteoporosis. Reviewed by: Moose Davies MD on 05/05/2021 3:35 PM [place] Approved by: Moose Davies MD on 05/05/2021 3:35 PM [place] Station ID: [id number]
== END 2021-05-05 09:35 | disposition home or self-care (01) ==
LOC: DI 09:34
PROVIDERS: ATTEND Internal Medicine
DX: D75.1 Secondary polycythemia (principal); C7A.020 Malignant carcinoid tumor of the appendix; M81.0 Age-related osteoporosis without current pathological fracture
CPT/HCPCS: 71260; 74177; Q9967

== ENCOUNTER 2021-06-21 18:05 | Outpatient (CLI) | payer BC ==
[2021-06-21] MEDS ORDERED: IOVERSOL 320 50 ML VIAL ONE (18:19)
[2021-06-21 18:33] LABS: BASOPHILS # (AUTO) 0.1 10^3/uL (0.0-0.1); BASOPHILS % (AUTO) 0.6 %; EOSINOPHILS # (AUTO) 0.3 10^3/uL (0.0-0.7); EOSINOPHILS % (AUTO) 3.5 %; HGB - HEMOGLOBIN 12.7 g/dL (12.0-16.0); LYMPHOCYTES # (AUTO) 2.9 10^3/uL (1.5-3.5); LYMPHOCYTES % (AUTO) 34.3 %; MEAN CORPUSCULAR HEMOGLOBIN 22.7 pg (27.0-31.0); MEAN CORPUSCULAR VOLUME 73.2 fL (81.0-99.0); MONOCYTES # (AUTO) 0.9 10^3/uL (0.0-1.0); MONOCYTES % (AUTO) 11.1 %; NEUTROPHILS # (AUTO) 4.3 10^3/uL (1.5-6.6); NEUTROPHILS % (AUTO) 50.3 %; PLT - PLATELET COUNT 358 10^3/uL (130-450); RED CELL DISTRIBUTION WIDTH 18.6 % (12.0-15.0); WHITE BLOOD COUNT 8.5 x10^3/uL (4.8-10.8)
[2021-06-21 18:54] LABS: ALBUMIN 4.3 g/dL (3.2-5.5); ALBUMIN/GLOBULIN RATIO 1.2 (1.0-2.2); ALKALINE PHOSPHATASE 81 IU/L (42-121); ALT ALANINE AMINOTRANSFERASE 23 IU/L (10-60); AST ASPARTATE AMINOTRANSFERASE 27 IU/L (10-42); BILIRUBIN,TOTAL 0.6 mg/dL (0.2-1.0); BUN - BLOOD UREA NITROGEN 11 mg/dL (6-20); CALCIUM 9.1 mg/dL (8.5-10.3); CARBON DIOXIDE - CO2 26 mmol/L (21-32); CHLORIDE 101 mmol/L (101-111); CHOL/HDL RATIO 2.8 (<4.4); CHOLESTEROL 163 mg/dL; CREATININE 0.8 mg/dL (0.4-1.0); GFR - MDRD 76 (>89); GLUCOSE 97 mg/dL (70-100); HDL CHOLESTEROL 58 mg/dL; LDL CHOLESTEROL,CALCULATED 78 mg/dL; LDL/HDL RATIO 1.3 (<4.4); LIPASE 36 U/L (22-51); POTASSIUM 3.8 mmol/L (3.5-5.0); SODIUM 135 mmol/L (135-145); TRIGLYCERIDES 137 mg/dL; VLDL CHOLESTEROL 27 mg/dL
[2021-06-21 19:03] LABS: THYROID STIMULATING HORMONE 5.65 uIU/mL (0.34-5.60)
--- NOTE | 2021-06-21 19:46 | CT Report ---
PROCEDURE: Abdomen/Pelvis W INDICATIONS: ABD PAIN CONTRAST: IV CONTRAST: Optiray 320 ml: 100 PO CONTRAST: Optiray 320 ml50 TECHNIQUE: After the administration of intravenous contrast, 5 mm thick sections acquired from the diaphragms to the symphysis. 5 mm thick coronal and sagittal reformats were acquired. For radiation dose reducti on, the following was used: automated exposure control, adjustment of mA and/or kV according to caroline ent size. COMPARISON: 05/05/2021 FINDINGS: Image quality: Excellent. ABDOMEN: Lung bases: Lung bases are clear. Heart size is normal. Coronary artery calcifications. Solid organs: Liver and spleen are normal in size and enhancement. No suspicious liver lesions. Sma ll benign-appearing hypodensity in the posterior segment right lobe of liver. Gallbladder is surgical ly absent Biliary system is non dilated. Pancreas enhances normally. No adrenal nodules. Right kid conrad is surgically absent. Peritoneum and bowel: Bowel loops demonstrate normal wall thickness and caliber. No free fluid or a ir. Nodes and vessels: No retroperitoneal or mesenteric adenopathy by size criteria. Aorta and inferior vena cava are normal in size. Miscellaneous: No ventral hernias. PELVIS: Genitourinary: Bladder wall thickness is normal. Moderate bladder distention. This is less than on t he previous study. Miscellaneous: No inguinal hernias or adenopathy. Bones: No suspicious bony lesions. Multiple old compression fractures, as before, including T10, T11 , T12, L1, and L2. IMPRESSION: 1. No evidence of acute abdominal process. 2. Remote right nephrectomy and cystectomy. 3. No evidence of metastatic disease in the abdomen and pelvis. 4. Moderately distended bladder. 5. Severe osteoporosis with multiple compression fractures. Reviewed by: Moose Davies MD on 06/21/2021 7:45 PM PDT Approved by: Moose Davies MD on 06/21/2021 7:45 PM PDT Station ID: [id number]
[2021-06-21 20:14] LABS: FREE T4 (FREE THYROXINE) 0.82 ng/dL (0.58-1.64)
[2021-06-21] MEDS ORDERED: IOVERSOL 320 50 ML VIAL IVP ONE (21:12)
== END 2021-06-21 18:06 | disposition home or self-care (01) ==
LOC: LAB 18:05
PROVIDERS: ATTEND Physician Assistant Medical
DX: Z00.00 Encounter for general adult medical examination without abnormal findings (principal); E78.5 Hyperlipidemia, unspecified; R10.13 Epigastric pain; Z90.5 Acquired absence of kidney; Z90.49 Acquired absence of other specified parts of digestive tract; M81.0 Age-related osteoporosis without current pathological fracture; M48.54XD Collapsed vertebra, not elsewhere classified, thoracic region, subsequent encounter for fracture with routine healing; M48.56XD Collapsed vertebra, not elsewhere classified, lumbar region, subsequent encounter for fracture with routine healing
CPT/HCPCS: 36415; 80053; 80061; 83690; 83721; 84439; 84443; 85025

== ENCOUNTER 2021-09-27 07:55 | Outpatient (CLI) | payer BC ==
[2021-09-27 08:34] LABS: ALBUMIN 4.2 g/dL (3.2-5.5); ALKALINE PHOSPHATASE 89 IU/L (42-121); ALT ALANINE AMINOTRANSFERASE 24 IU/L (10-60); AST ASPARTATE AMINOTRANSFERASE 29 IU/L (10-42); BILIRUBIN,DIRECT 0.1 mg/dL (0.1-0.5); BILIRUBIN,TOTAL 0.7 mg/dL (0.2-1.0); CHOL/HDL RATIO 2.8 (<4.4); CHOLESTEROL 168 mg/dL; HDL CHOLESTEROL 60 mg/dL; LDL CHOLESTEROL,CALCULATED 70 mg/dL; LDL/HDL RATIO 1.2 (<4.4); TOTAL PROTEIN 8.2 g/dL (6.7-8.2); TRIGLYCERIDES 192 mg/dL; VLDL CHOLESTEROL 38 mg/dL
== END 2021-09-27 07:56 | disposition home or self-care (01) ==
LOC: LAB 07:55
PROVIDERS: ATTEND Internal Medicine Cardiovascular Disease
DX: I25.10 Atherosclerotic heart disease of native coronary artery without angina pectoris (principal)
CPT/HCPCS: 36415; 80061; 80076; 83721

== ENCOUNTER 2022-04-03 13:23 | Outpatient (CLI) | payer BC ==
[2022-04-03 18:02] LABS: BASOPHILS # (AUTO) 0.1 10^3/uL (0.0-0.1); BASOPHILS % (AUTO) 0.6 %; EOSINOPHILS # (AUTO) 0.3 10^3/uL (0.0-0.7); EOSINOPHILS % (AUTO) 2.9 %; HCT - HEMATOCRIT 43.7 % (37.0-47.0); HGB - HEMOGLOBIN 13.2 g/dL (12.0-16.0); LYMPHOCYTES # (AUTO) 2.9 10^3/uL (1.5-3.5); LYMPHOCYTES % (AUTO) 30.1 %; MEAN CORPUSCULAR HEMOGLOBIN 22.8 pg (27.0-31.0); MEAN CORPUSCULAR HGB CONC 30.2 g/dL (32.0-36.0); MEAN CORPUSCULAR VOLUME 75.3 fL (81.0-99.0); MEAN PLATELET VOLUME 10.2 fL (7.9-10.8); MONOCYTES # (AUTO) 0.9 10^3/uL (0.0-1.0); MONOCYTES % (AUTO) 9.1 %; NEUTROPHILS # (AUTO) 5.5 10^3/uL (1.5-6.6); PLT - PLATELET COUNT 363 10^3/uL (130-450); RED CELL DISTRIBUTION WIDTH 20.2 % (12.0-15.0); WHITE BLOOD COUNT 9.7 x10^3/uL (4.8-10.8)
[2022-04-03 18:48] LABS: ALBUMIN 4.1 g/dL (3.2-5.5); BILIRUBIN,TOTAL 0.6 mg/dL (0.2-1.0); CALCIUM 10.5 mg/dL (8.5-10.3); CREATININE 0.8 mg/dL (0.4-1.0); POTASSIUM 4.2 mmol/L (3.5-5.0); TOTAL PROTEIN 8.2 g/dL (6.7-8.2)
== END 2022-04-03 13:24 | disposition home or self-care (01) ==
LOC: LAB.N 13:23
PROVIDERS: ATTEND Physician Assistant Medical
DX: R10.11 Right upper quadrant pain (principal)
CPT/HCPCS: 36415; 80053; 83690; 85025

== ENCOUNTER 2022-04-12 10:38 | Outpatient (CLI) | payer BC ==
[2022-04-13 12:09] LABS: CALCIUM IONIZED SERUM 5.2 mg/dL (4.5-5.6)
[2022-04-13 14:09] LABS: VITAMIN D 25-HYDROXY 32.6 ng/mL (30.0-100.0)
== END 2022-04-12 10:39 | disposition home or self-care (01) ==
LOC: LAB.N 10:38
PROVIDERS: ATTEND Family Medicine
DX: E83.52 Hypercalcemia (principal)
CPT/HCPCS: 36415; 82306; 82330; 83970

== ENCOUNTER 2022-07-10 21:41 | Outpatient (CLI) | payer BC ==
--- NOTE | 2022-07-11 10:55 | Ultrasound Report ---
PROCEDURE: Head or Neck Soft Tissue INDICATIONS: DYSPHAGIA TECHNIQUE: Real-time scanning was performed of the thyroid gland, with image documentation. COMPARISON: None FINDINGS: Right: Thyroid lobe measures 4.3 x 1.4 x 1.5 cm, and is homogeneous in echotexture. Left: Thyroid lobe measures 3.5 x 1.4 x 1.5 cm, and is homogenous in echotexture. Isthmus: 0.3 cm thick. No suspicious thyroid nodule. IMPRESSION: Normal size and sonographic appearance of the thyroid. Reviewed by: Donald Del Toro MD on 07/11/2022 10:54 AM PDT Approved by: Donald Del Toro MD on 07/11/2022 10:54 AM PDT Station ID: [id number]
== END 2022-07-10 21:42 | disposition home or self-care (01) ==
LOC: DI 21:41
PROVIDERS: ATTEND Physician Assistant Medical
DX: R13.10 Dysphagia, unspecified (principal)

== ENCOUNTER 2022-07-23 13:49 | Emergency (ER) | payer BC ==
[2022-07-23 14:49] VITALS: BP 136/89
--- NOTE | 2022-07-23 16:11 | XRAY Report ---
PROCEDURE: Shoulder 3 View RT INDICATIONS: injury TECHNIQUE: 3 views of the shoulder were acquired. COMPARISON: None. FINDINGS: Bones: No fractures or dislocations. No suspicious bony lesions. Visualized ribs appear intact. Degenerative changes of the right AC joint. Soft tissues: No suspicious soft tissue calcifications. Right tunneled port device is in place. IMPRESSION: Right shoulder without acute fracture or dislocation. Right acromioclavicular osteoarthrosis. If there is persistent clinical concern for a radiographically occult fracture, recommend immobilizat ion and repeat imaging in 10 to 14 days. Reviewed by: Austin Nava MD on 07/23/2022 4:09 PM PDT Approved by: Austin Nava MD on 07/23/2022 4:09 PM PDT Station ID: [id number]
--- NOTE | 2022-07-23 16:12 | XRAY Report ---
PROCEDURE: Ankle 3 View LT INDICATIONS: Trauma TECHNIQUE: 3 views of the ankle were acquired. COMPARISON: None. FINDINGS: Bones: No fractures or dislocations. Ankle mortise is normally aligned. No suspicious bony lesions . Soft tissues: No tibiotalar joint effusion. Achilles tendon appears normal. Soft tissue swelling o f the left ankle noted. IMPRESSION: No acute bony abnormality. Mild soft tissue swelling. If there is persistent clinical concern for a radiographically occult fracture, recommend immobilizat ion and repeat imaging in 10 to 14 days. Reviewed by: Austin Nava MD on 07/23/2022 4:10 PM PDT Approved by: Austin Nava MD on 07/23/2022 4:10 PM PDT Station ID: [id number]
[2022-07-23] MEDS ORDERED: HYDROcod/ACETAM 5/325 MG TABLET PO STA (17:19)
--- NOTE | 2022-07-23 17:48 | XRAY Report ---
PROCEDURE: Ribs w/PA Chest RT INDICATIONS: fall, R rib pain TECHNIQUE: 2 views of the right ribs were acquired, along with a single view chest. COMPARISON: None. FINDINGS: Surgical changes and devices: Right IJ Mediport. Surgical clips in the abdominal right upper quadran t. Bones and chest wall: No fractures or dislocations. No suspicious bony lesions. Overlying soft tis sues appear unremarkable. Lungs and pleura: No pleural effusions or pneumothorax. Lungs appear clear. Mediastinum: Mediastinal contours appear normal. Heart size is normal. IMPRESSION: No displaced rib fracture or pneumothorax. Reviewed by: Kacie Portillo MD on 07/23/2022 4:47 PM ANGÉLICA Approved by: Kacie Portillo MD on 07/23/2022 4:47 PM AKDT Station ID: [id number]
--- NOTE | 2022-07-23 18:06 | ED Physician Documentation ---
History of Present Illness - Stated complaint Stated Complaint: HEAD INJ,CHEST PX,LT ANKLE PX - Chief complaint Chief Complaint: Trauma Ext - History obtained from History obtained from: Patient, Family - History of Present Illness Pain level max: 0 Pain level now: 0 - Additonal information Additional information: 51-year-old female presents the emergency department after 2 separate falls. The first was yesterday which she tripped and fell hitting her head on the concrete. No loss of consciousness. No seizure. Had a slight headache afterwards but that is since resolved. No altered mental status. No neurological deficits. She also noticed an abrasion to the right shoulder, is not having significant pain to the right shoulder however. She also states that she was pulling weeds in her garden and felt pain in the right ribs. She states she has a history of her ribs "popping out". She also states that today she fell and twisted her left ankle. Worse with walking, better with rest. No other head, neck or back injuries or pain. She is not on blood thinners. No numbness or tingling. No altered mental status. 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: Ovarian cysts : Other HEENT: None Psych: Anxiety Musculoskeletal: Osteoporosis Derm: None - Past Surgical History Past Surgical History: Yes General: Cholecystectomy, Appendectomy Ortho: Carpal Tunnel surgery /GRAIN COMBINE DRIVER: section, Oophrectomy Cardiovascular: Coronary stent - Present Medications Home Medications: Ambulatory Orders Medication Instructions Recorded Confirmed Ezetimibe [Zetia] 10 mg PO DAILY 05/15/17 06/20/22 Propranolol [Inderal] 1 tab ORAL BID 12/25/17 06/20/22 Sertraline [Zoloft] 100 mg PO DAILY 07/23/18 06/20/22 Omeprazole 20 mg PO BID 09/02/19 06/20/22 metFORMIN [Glucophage] 500 mg PO DAILY 11/17/20 06/20/22 Evolocumab [Repatha Sureclick] 140 mg INJ UD 01/11/21 06/20/22 Levothyroxine [Synthroid] 88 mcg PO QDAC 08/30/21 06/20/22 HYDROcod/ACETAM 5/325 [[place] 5/325] 1 - 2 ea PO Q6H PRN #14 tablet 07/23/22 - Allergies Allergies/Adverse Reactions: Allergies Allergy/AdvReac Type Severity Reaction Status Date / Time amoxicillin [Amoxicillin] Allergy hepatitis Verified 07/23/22 14:40 citalopram hydrobromide * Allergy flank pain Verified 07/23/22 14:40 [From Celexa] sertraline Allergy Unknown Verified 07/23/22 14:40 simvastatin [From Zocor] Allergy flank pain Verified 07/23/22 14:40 oxycodone AdvReac Severe vomiting Verified 07/23/22 14:40 - Social History Does the pt smoke?: Yes Smoking Status: Current every day smoker Does the pt drink ETOH?: Yes Does the pt have substance abuse?: No - Immunizations Immunizations are current?: Yes - POLST Patient has POLST: No POLST Status: Full Code PD ED PE NORMAL - Vitals Vital signs reviewed: Yes - General General: Alert and oriented X 3, No acute distress - HEENT HEENT: Atraumatic, PERRL, EOMI, Ears normal, Moist mucous membranes, Pharynx benign - Neck Neck: Supple, no meningeal sign, No bony TTP - Cardiac Cardiac: RRR, Strong equal pulses - Respiratory Respiratory: No respiratory distress, Clear bilaterally - Abdomen Abdomen: Soft, Non tender, Non distended - Back Back: No CVA TTP, No spinal TTP - Derm Derm: Warm and dry - Extremities Extremities: Other (TTP over the R lower anterior ribs. No crepitus, no ecchymosis. L ankle - mild TTP over the lateral malleolus, NVI, mild swelling. ) - Neuro Neuro: Alert and oriented X 3 - Psych Psych: Normal mood, Normal affect Results - Vitals Vitals: Vital Signs - 24 hr 07/23/22 14:41 Temperature 36.7 C Heart Rate 81 Respiratory 18 Rate Blood Pressure 136/89 H O2 Saturation 96 Oxygen O2 Source Room air - Rads (name of study) R shoulder xray Relevant Findings:: Final report received, See rad report L ankle xray Relevant Findings:: Final report received, See rad report R rib xray Relevant Findings:: Final report received, See rad report PD Medical Decision Making - ED course Complexity details: reviewed results, re-evaluated patient, considered differential, d/w patient ED course: No acute findings on x-rays. Pain well controlled with hydrocodone. There are no gel splints or Aircast available today, we will have the [facility] bring 1 to her tomorrow. Patient was given crutches. Nelson bandage applied to the ankle. Will prescribe pain medication for home and have her follow-up with her doctor for further care. No indication for head CT. GCS 15. Not on anticoagulants. Patient counseled regarding signs and symptoms for which I believe and urgent re-evaluation would be necessary. Patient with good understanding of and agreement to plan and is comfortable going home at this time This document was made in part using voice recognition software. While efforts are made to proofread this document, sound alike and grammatical errors may occur. Departure - Departure Disposition: 01 Home, Self Care Clinical Impression: Rib pain on right side Left ankle sprain Qualifiers: Encounter type: initial encounter Involved ligament of ankle: unspecified ligament Qualified Code(s): S93.402A - Sprain of unspecified ligament of left ankle, initial encounter Closed head injury Qualifiers: Encounter type: initial encounter Qualified Code(s): S09.90XA - Unspecified injury of head, initial encounter Condition: Good Instructions: ED Head Injury Closed, ED Sprain Ankle, ED Contusion Vs Minor Fx Rib Follow-Up: Guillermina Medina PA-C [Primary Care Provider] - Prescriptions: HYDROcod/ACETAM 5/325 [[place] 5/325] 1 - 2 ea PO Q6H PRN #14 tablet PRN Reason: Pain Comments: Your x-rays do not show any acute abnormalities today. Please follow-up with your doctor for further care. You may bear weight as tolerated. Your prescriptions were sent to [facility] in [place]. I am prescribing a short course of narcotic pain medication for you. These are potentially dangerous and addictive medications that should be used carefully. These medications may constipate you. Take an ytgk-grd-jkcktzz stool softener (docusate) twice daily with plenty of water while taking these medications. If you go 24 hours without a bowel movement, take wrgz-cda-nzvogex miralax, per package instructions. Do not drink or drive while taking these medications. If you received narcotic or sedating medications while in the emergency department, do not drive for 24 hours. Store this medication in a safe, secure place and out of reach of children. It is a violation of federal law to give or sell this medication to another person or to use in a manner other than prescribed. The ED will not refill narcotic prescriptions, including prescriptions lost or stolen. To dispose of unwanted medications: 1. [facility] at [address] in [place] has a medication drop box. They accept prescription medications (in pill form) Saturday through Saturday 9:00 a.m. to 5:00 p.m. 2. [facility] accepts prescription medications (in pill form only) for disposal year round. Call for more information. 3. Contact the [facility] for the next [facility] sponsored prescription drug collection event. , [phone], or [phone]; Forms: Activity restrictions Discharge Date/Time: 07/23/22 18:47
== END 2022-07-23 18:47 | disposition home or self-care (01) ==
LOC: ED 13:49
DX: S93.402A Sprain of unspecified ligament of left ankle, initial encounter (principal); S09.90XA Unspecified injury of head, initial encounter; X50.1XXA Overexertion from prolonged static or awkward postures, initial encounter; F17.200 Nicotine dependence, unspecified, uncomplicated
CPT/HCPCS: 71101; 73030; 73610; 99284; A9270

== ENCOUNTER 2022-08-07 08:00 | Outpatient (CLI) | payer BC ==
--- NOTE | 2022-08-07 14:40 | XRAY Report ---
PROCEDURE: Ankle 3 View LT INDICATIONS: LEFT ANKLE PAIN TECHNIQUE: 3 views of the ankle were acquired. COMPARISON: 07/23/2022 FINDINGS: Bones: No displaced fracture. Ankle mortise appears intact on these weightbearing views. Plantar ent hesopathy. Soft tissues: Soft tissue swelling is present. IMPRESSION: No acute radiographic abnormality. There is soft tissue swelling. If there is high concern for furthe r derangement, consider MRI evaluation. Reviewed by: Darinel Amin MD on 08/07/2022 2:38 PM PDT Approved by: Darinel Amin MD on 08/07/2022 2:38 PM PDT Station ID: [id number]
--- NOTE | 2022-08-07 16:40 | XRAY Report ---
PROCEDURE: Foot 3 View LT INDICATIONS: LEFT FOOT PAIN TECHNIQUE: 4 views of the foot were acquired. COMPARISON: None. FINDINGS: Bones: No acute fractures or dislocations. No suspicious bony lesions. Tiny plantar calcaneal enthe sophyte. Scattered degenerative changes at the interphalangeal joints of the toes. Soft tissues: No suspicious soft tissue calcifications or masses. IMPRESSION: No acute osseous abnormality. If symptoms persist or there is continued clinical concern, further chinmay luation with MRI or CT may be helpful. Reviewed by: Donald Del Toro MD on 08/07/2022 4:39 PM PDT Approved by: Donald Del Toro MD on 08/07/2022 4:39 PM PDT Station ID: [id number]
== END 2022-08-07 23:59 | disposition home or self-care (01) ==
LOC: DI.WOS 08:00
PROVIDERS: ATTEND Physician Assistant Surgical
DX: M79.672 Pain in left foot (principal); M25.572 Pain in left ankle and joints of left foot

== ENCOUNTER 2022-08-10 18:24 | Emergency (ER) | payer BC ==
[2022-08-10] MEDS ORDERED: ONDANSETRON ODT 4 MG TABLET TL STA (19:04)
[2022-08-10 19:14] LABS: BASOPHILS % (AUTO) 0.4 %; EOSINOPHILS % (AUTO) 0.1 %; HCT - HEMATOCRIT 44.7 % (37.0-47.0); HGB - HEMOGLOBIN 14.3 g/dL (12.0-16.0); LYMPHOCYTES # (AUTO) 0.6 10^3/uL (1.5-3.5); LYMPHOCYTES % (AUTO) 5.6 %; MEAN CORPUSCULAR HEMOGLOBIN 24.9 pg (27.0-31.0); MEAN CORPUSCULAR VOLUME 77.7 fL (81.0-99.0); MEAN PLATELET VOLUME 9.3 fL (7.9-10.8); MONOCYTES # (AUTO) 0.5 10^3/uL (0.0-1.0); MONOCYTES % (AUTO) 5.1 %; NEUTROPHILS # (AUTO) 9.1 10^3/uL (1.5-6.6); NEUTROPHILS % (AUTO) 88.4 %; PLT - PLATELET COUNT 328 10^3/uL (130-450); RED BLOOD COUNT 5.75 10^6/uL (4.20-5.40); RED CELL DISTRIBUTION WIDTH 18.4 % (12.0-15.0); WHITE BLOOD COUNT 10.3 x10^3/uL (4.8-10.8)
[2022-08-10 19:27] LABS: ALBUMIN 4.2 g/dL (3.2-5.5); BILIRUBIN,TOTAL 0.7 mg/dL (0.2-1.0); CALCIUM 8.9 mg/dL (8.5-10.3); CREATININE 0.8 mg/dL (0.4-1.0); POTASSIUM 3.7 mmol/L (3.5-5.0); TOTAL PROTEIN 8.4 g/dL (6.7-8.2)
[2022-08-10] MEDS ORDERED: DROPERIDOL 5 MG/2 ML VIAL IVP STA (20:14)
[2022-08-10] MEDS ORDERED: KETOROLAC 30 MG/ML VIAL IVP STA (20:14)
[2022-08-10] MEDS ORDERED: SODIUM CHLORIDE 0.9% 1,000 ML IV STA (20:14)
[2022-08-10 20:17] LABS: CORONAVIRUS 229E-RESP PCR NOT DETECTED; CORONAVIRUS HKU1-RESP PCR NOT DETECTED; CORONAVIRUS NL63-RESP PCR NOT DETECTED; CORONAVIRUS OC43-RESP PCR NOT DETECTED
[2022-08-10 20:19] LABS: B. PARAPERTUSSIS- RESP PCR PAN NOT DETECTED; B. PERTUSSIS- RESP PCR PANEL NOT DETECTED; C. PNEUMONIAE- RESP PCR PANEL NOT DETECTED; HUMAN METAPNEUMOVIRUS NOT DETECTED; INFLUENZA A- RESP PCR PANEL NOT DETECTED; INFLUENZA B - RESP PCR PANEL NOT DETECTED; M. PNEUMONIAE- RESP PCR PANEL NOT DETECTED; PARAINFLUENZA VIRUS 1 NOT DETECTED; PARAINFLUENZA VIRUS 2 NOT DETECTED; PARAINFLUENZA VIRUS 3 NOT DETECTED; PARAINFLUENZA VIRUS 4 NOT DETECTED; RHINOVIRUS/ENTEROVIRUS NOT DETECTED; RSV- RESP PCR PANEL NOT DETECTED; SARS-CoV-2 -RESP PCR PANEL DETECTED
--- NOTE | 2022-08-10 20:19 | ED Physician Documentation ---
History of Present Illness - Stated complaint Stated Complaint: FEVER/CHILLS/VOMITING - Chief complaint Chief Complaint: General - History obtained from History obtained from: Patient, Family - History of Present Illness Timing: Yesterday Pain level max: 5 Pain level now: 5 - Additonal information Additional information: Patient is a 51-year-old female brought in by her family for nausea and vomiting that started yesterday. She also has a frontal headache, similar to prior headaches. Has had subjective fevers and chills at home. Mild rhinorrhea and congestion. No significant cough. No neck pain. The headache was gradual in onset, worse with light and sound. Denies any abdominal pain, constipation or diarrhea. Review of Systems Constitutional: reports: Fever (Subjective), Chills Nose: reports: Rhinorrhea / runny nose, Congestion Throat: denies: Sore throat Cardiac: denies: Chest pain / pressure, Palpitations Respiratory: denies: Dyspnea, Wheezing GI: reports: Nausea, Vomiting. 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 : Other HEENT: None Psych: Anxiety Musculoskeletal: Osteoporosis Derm: None - Past Surgical History Past Surgical History: Yes General: Cholecystectomy, Appendectomy Ortho: Carpal Tunnel surgery /CHARGER TESTER: section, Oophrectomy Cardiovascular: Coronary stent - Present Medications Home Medications: Ambulatory Orders Medication Instructions Recorded Confirmed Ezetimibe [Zetia] 10 mg PO DAILY 05/15/17 06/20/22 Propranolol [Inderal] 1 tab ORAL BID 12/25/17 06/20/22 Sertraline [Zoloft] 100 mg PO DAILY 07/23/18 06/20/22 Omeprazole 20 mg PO BID 09/02/19 06/20/22 metFORMIN [Glucophage] 500 mg PO DAILY 11/17/20 06/20/22 Evolocumab [Repatha Sureclick] 140 mg INJ UD 01/11/21 06/20/22 Levothyroxine [Synthroid] 88 mcg PO QDAC 08/30/21 06/20/22 HYDROcod/ACETAM 5/325 [[place] 5/325] 1 - 2 ea PO Q6H PRN #14 tablet 07/23/22 Ondansetron Odt [Zofran] 4 mg TL Q6H PRN #10 tablet 08/10/22 - Allergies Allergies/Adverse Reactions: Allergies Allergy/AdvReac Type Severity Reaction Status Date / Time amoxicillin [Amoxicillin] Allergy hepatitis Verified 08/10/22 18:35 citalopram hydrobromide * Allergy flank pain Verified 08/10/22 18:35 [From Celexa] sertraline Allergy Unknown Verified 08/10/22 18:35 simvastatin [From Zocor] Allergy flank pain Verified 08/10/22 18:35 oxycodone AdvReac Severe vomiting Verified 08/10/22 18:35 - Social History Does the pt smoke?: Yes Smoking Status: Current every day smoker Does the pt drink ETOH?: Yes Does the pt have substance abuse?: No - Immunizations Immunizations are current?: Yes - POLST Patient has POLST: No POLST Status: Full Code PD ED PE NORMAL - Vitals Vital signs reviewed: Yes - General General: Alert and oriented X 3, No acute distress, Well developed/nourished - HEENT HEENT: Atraumatic, PERRL, EOMI, Ears normal, Moist mucous membranes, Pharynx benign - Neck Neck: Supple, no meningeal sign, No bony TTP - Cardiac Cardiac: RRR, Strong equal pulses - Respiratory Respiratory: No respiratory distress, Clear bilaterally - Abdomen Abdomen: Soft, Non tender, Non distended - Back Back: No spinal TTP - Derm Derm: Warm and dry, No rash - Extremities Extremities: No edema, No calf tenderness / cord - Neuro Neuro: Alert and oriented X 3 - Psych Psych: Normal mood, Normal affect Results - Vitals Vitals: Vital Signs - 24 hr 08/10/22 08/10/22 08/10/22 18:29 19:23 21:45 Temperature 37.1 C Heart Rate 108 H 97 88 Respiratory 18 16 20 Rate Blood Pressure 135/93 H 129/89 H 155/103 H O2 Saturation 92 92 93 Oxygen O2 Source Room air - Labs Labs: Laboratory Tests 08/10/22 08/10/22 08/10/22 19:09 19:09 19:17 WBC 10.3 RBC 5.75 H Hgb 14.3 Hct 44.7 MCV 77.7 L MCH 24.9 L MCHC 32.0 RDW 18.4 H Plt Count 328 MPV 9.3 Neut # (Auto) 9.1 H Lymph # (Auto) 0.6 L [place] # (Auto) 0.5 Eos # (Auto) 0.0 Baso # (Auto) 0.0 Absolute Nucleated RBC 0.00 Nucleated RBC % 0.0 Sodium 136 Potassium 3.7 Chloride 104 Carbon Dioxide 23 Anion Gap 9.0 BUN 8 Creatinine 0.8 Estimated GFR (MDRD) 75 L Glucose 152 H Calcium 8.9 Total Bilirubin 0.7 AST 27 ALT 24 Alkaline Phosphatase 95 Total Protein 8.4 H Albumin 4.2 Globulin 4.2 Albumin/Globulin Ratio 1.0 Lipase 29 Nasal Adenovirus (PCR) NOT DETECTED Nasal B. parapertussis DNA (PCR) NOT DETECTED Nasal Coronavir 229E PCR NOT DETECTED Nasal Coronavir HKU1 PCR NOT DETECTED Nasal Coronavir NL63 PCR NOT DETECTED Nasal Coronavir OC43 PCR NOT DETECTED Nasal Enterovir/Rhinovir PCR NOT DETECTED Nasal Influenza B PCR NOT DETECTED Nasal Influenza A PCR NOT DETECTED Nasal Parainfluen 1 PCR NOT DETECTED Nasal Parainfluen 2 PCR NOT DETECTED Nasal Parainfluen 3 PCR NOT DETECTED Nasal Parainfluen 4 PCR NOT DETECTED Nasal RSV (PCR) NOT DETECTED Nasal B.pertussis DNA PCR NOT DETECTED Nasal C.pneumoniae (PCR) NOT DETECTED Justin Human Metapneumo PCR NOT DETECTED Nasal M.pneumoniae (PCR) NOT DETECTED Nasal SARS-CoV-2 (PCR) DETECTED A PD Medical Decision Making - ED course Complexity details: reviewed results, re-evaluated patient, considered differential, d/w patient, d/w family ED course: 51-year-old female with headache, vomiting, body aches and chills. Positive for COVID. Feels better after Toradol, droperidol, Zofran and IV fluids. No significant lab abnormalities. No hypoxia. No respiratory distress. She is COVID vaccinated. We did discuss antivirals and she would like to take Paxlovid. This was given to her. Abdomen is soft, nontender nondistended. Tolerating p.o. without difficulty. Patient counseled regarding signs and symptoms for which I believe and urgent re-evaluation would be necessary. Patient with good understanding of and agreement to plan and is comfortable going home at this time This document was made in part using voice recognition software. While efforts are made to proofread this document, sound alike and grammatical errors may occur. Departure - Departure Disposition: 01 Home, Self Care Clinical Impression: COVID Vomiting Qualifiers: Vomiting type: unspecified Nausea presence: with nausea Qualified Code(s): R11.2 - Nausea with vomiting, unspecified Condition: Good Instructions: ED Viral Syndrome, ED Nausea Vomiting Follow-Up: Guillermina Medina PA-C [Provider Admit Priv/Credential] - Prescriptions: Ondansetron Odt [Zofran] 4 mg TL Q6H PRN #10 tablet PRN Reason: Nausea / Vomiting Comments: You have tested positive for COVID today. Please drink plenty of fluids at home. Please return if you worsen. We have started you on Paxlovid. Please take as prescribed. Your prescription was sent to [facility] in [place]. Please use the medications as prescribed. Isolation precautions for COVID Day 0 is your first day of symptoms or a positive viral test. Day 1 is the first full day after your symptoms developed or your test specimen was collected. If you have COVID-19 or have symptoms, isolate for at least 5 days. IF YOU: Tested positive for COVID-19 or have symptoms, regardless of vaccination status Stay home for at least 5 days Stay home for 5 days and isolate from others in your home. Wear a well-fitting mask if you must be around others in your home. Do not travel. Ending isolation if you had symptoms End isolation after 5 full days if you are fever-free for 24 hours (without the use of fever-reducing medication) and your symptoms are improving. Ending isolation if you did NOT have symptoms End isolation after at least 5 full days after your positive test. If you got very sick from COVID-19 or have a weakened immune system You should isolate for at least 10 days. Consult your doctor before ending isolation. Take precautions until day 10 Wear a well-fitting mask Wear a well-fitting mask for 10 full days any time you are around others inside your home or in public. Do not go to places where you are unable to wear a mask. Do not travel Do not travel until a full 10 days after your symptoms started or the date your positive test was taken if you had no symptoms. Avoid being around people who are more likely to get very sick from COVID-19. Forms: Activity restrictions Discharge Date/Time: 08/10/22 21:46
[2022-08-10] MEDS ORDERED: NIRMATRELVIR/RITONAVIR PREPACK PO STA (21:25)
[2022-08-10 21:50] VITALS: BP 155/103
== END 2022-08-10 21:46 | disposition home or self-care (01) ==
LOC: ED 18:24
DX: U07.1 COVID-19 (principal); R11.2 Nausea with vomiting, unspecified; F17.200 Nicotine dependence, unspecified, uncomplicated; Z79.899 Other long term (current) drug therapy; Z79.84 Long term (current) use of oral hypoglycemic drugs
CPT/HCPCS: 36415; 80053; 83690; 85025; 87633; 96374; 96375; 99283; 99284; J3490; Q0162

== ENCOUNTER 2022-09-01 13:13 | Outpatient (CLI) | payer BC ==
--- NOTE | 2022-09-03 12:48 | MRI Report ---
PROCEDURE: ANKLE WO - LT INDICATIONS: LEFT ANKLE PAIN TECHNIQUE: Noncontrast Magnetic Resonance Imaging (MRI) of the ankle/hindfoot was performed utilizing the follow ing sequences: sagittal T1 spin echo, sagittal T2 fast spin echo with fat saturation, axial PD fast s pin echo, axial T2 fast spin echo with fat saturation, coronal T1 spin echo, and coronal T2 fast spin echo with fat saturation. COMPARISON: Left ankle radiographs 08/07/2022 FINDINGS: Image quality: Excellent. Bones and joints: There is a nondisplaced incomplete fracture at the lateral aspect of the calcaneus centered at the pe roneal tubercle. No hindfoot coalition. The ankle mortise is maintained. No osteochondral defect is s een at the talar dome. No significant degenerative changes are seen in the midfoot or hindfoot. Medial structures: The deltoid ligament and the spring ligament complex are intact. There is mild distal posterior tibia lis tenosynovitis. The flexor digitorum longus and flexor hallucis longus tendons are intact. The pos terior tibial neurovascular bundle appears normal within the tarsal tunnel, without extrinsic mass ef fect. Lateral structures: The anterior and posterior distal tibiofibular ligaments are intact. Remote prior low-grade sprains o f the anterior talofibular ligament and calcaneofibular ligament. The posterior talofibular ligament is intact. The peroneus brevis and longus tendons demonstrate mild tendinosis. Mild tenosynovitis may be reactive. The sinus tarsi demonstrates normal fatty signal. Anterior structures: The tibialis anterior, extensor hallucis longus, and extensor digitorum longus tendons appear intact. Posterior and plantar structures: The Achilles tendon is intact. There is thickening the proximal plantar fascia. Severe fatty infiltra tion of the abductor digiti minimi muscle is consistent with chronic denervation changes/Mendoza neuro chepe. IMPRESSION: 1.Nondisplaced incomplete fracture of the lateral calcaneus involving the peroneal tubercle with surr ounding osseous edema. 2.Mild peroneus brevis and longus tendinosis and tenosynovitis. 3.Remote prior low-grade strains of the anterior talofibular ligament and the calcaneofibular ligamen t. 4.Mild distal posterior tibialis tenosynovitis. 5.Moderate chronic proximal plantar fasciitis. 6.Fatty infiltration of the abductor digiti minimi muscle is consistent with chronic denervation thomas ges/Mendoza neuropathy. Reviewed by: Donald Del Toro MD on 09/03/2022 12:46 PM PDT Approved by: Donald Del Toro MD on 09/03/2022 12:46 PM PDT Station ID: [id number]
== END 2022-09-01 13:14 | disposition home or self-care (01) ==
LOC: DI 13:13
PROVIDERS: ATTEND Physician Assistant Medical
DX: S92.045A Nondisplaced other fracture of tuberosity of left calcaneus, initial encounter for closed fracture (principal); M65.9 Synovitis and tenosynovitis, unspecified; M72.2 Plantar fascial fibromatosis

== ENCOUNTER 2022-09-03 09:09 | Outpatient (CLI) | payer BC | END 2022-09-03 09:10 | disposition home or self-care (01) | LOC: LAB.R 09:09 | PROVIDERS: ATTEND Internal Medicine Endocrinology, Diabetes & Metabolism | DX: E21.3 Hyperparathyroidism, unspecified (principal) | CPT/HCPCS: 81599; 82340; 82570 ==

== ENCOUNTER 2022-10-08 08:00 | Outpatient (CLI) | payer BC ==
--- NOTE | 2022-10-08 14:05 | XRAY Report ---
PROCEDURE: Calcaneus LT INDICATIONS: LEFT LATERAL CALCANEAL FRACTURE TECHNIQUE: Two views of the calcaneus were acquired. COMPARISON: None FINDINGS: Bones: No fractures or dislocations. No suspicious bony lesions. Soft tissues: No suspicious calcifications. Achilles tendon appears normal. IMPRESSION: No acute fracture. No osseous lesion. If symptoms and/or clinical suspicion for pathology continue, f urther assessment with repeat plain films, or advanced imaging (e.g., CT, MRI, or bone scan) is recom mended for further assessment. Reviewed by: Veronique Gaitan MD on 10/08/2022 2:04 PM PDT Approved by: Veronique Gaitan MD on 10/08/2022 2:04 PM PDT Station ID: [id number]
== END 2022-10-08 23:59 | disposition home or self-care (01) ==
LOC: DI.WOS 08:00
PROVIDERS: ATTEND Orthopaedic Surgery
DX: S92.002A Unspecified fracture of left calcaneus, initial encounter for closed fracture (principal)

== ENCOUNTER 2022-10-26 07:31 | Outpatient (CLI) | payer BC ==
[2022-10-26 08:06] LABS: ALBUMIN 4.2 g/dL (3.2-5.5); ALBUMIN/GLOBULIN RATIO 1.2 (1.0-2.2); ALKALINE PHOSPHATASE 109 IU/L (42-121); ALT ALANINE AMINOTRANSFERASE 25 IU/L (10-60); AST ASPARTATE AMINOTRANSFERASE 28 IU/L (10-42); BILIRUBIN,TOTAL 0.8 mg/dL (0.2-1.0); BUN - BLOOD UREA NITROGEN 8 mg/dL (6-20); CALCIUM 9.4 mg/dL (8.5-10.3); CARBON DIOXIDE - CO2 28 mmol/L (21-32); CHLORIDE 105 mmol/L (101-111); CHOL/HDL RATIO 5.2 (<4.4); CHOLESTEROL 227 mg/dL; CREATININE 0.8 mg/dL (0.6-1.3); GFR - MDRD 75 (>89); GLUCOSE 95 mg/dL (74-104); HDL CHOLESTEROL 44 mg/dL; LDL CHOLESTEROL,CALCULATED 113 mg/dL; LDL/HDL RATIO 2.6 (<4.4); SODIUM 138 mmol/L (135-145); TOTAL PROTEIN 7.7 g/dL (6.4-8.9); TRIGLYCERIDES 352 mg/dL (48-352); VLDL CHOLESTEROL 70 mg/dL
[2022-10-26 08:22] LABS: THYROID STIMULATING HORMONE 3.01 uIU/mL (0.34-5.60)
== END 2022-10-26 07:32 | disposition home or self-care (01) ==
LOC: LAB 07:31
PROVIDERS: ATTEND Physician Assistant Medical
DX: E78.5 Hyperlipidemia, unspecified (principal); E03.9 Hypothyroidism, unspecified
CPT/HCPCS: 36415; 80053; 80061; 83721; 84443

== ENCOUNTER 2023-04-17 13:16 | Outpatient (CLI) | payer BC ==
--- NOTE | 2023-04-17 16:40 | XRAY Report ---
PROCEDURE: Finger(s) LT INDICATIONS: LEFT FINGER PAIN TECHNIQUE: AP hand, 2 views of the fifth finger(s) acquired. COMPARISON: None. FINDINGS: Bones: No fractures or dislocations. No suspicious bony lesions. Soft tissues: No suspicious soft tissue calcifications or masses. IMPRESSION: No visualized acute fracture or dislocation. However, occult injury cannot be excluded. Recommend nelson rt interval imaging follow-up in 7-10 days as clinically indicated for additional evaluation. Reviewed by: Blanquita Clark MD on 04/17/2023 4:39 PM PST Approved by: Blanquita Clark MD on 04/17/2023 4:39 PM PST Station ID: [id number]
== END 2023-04-17 13:17 | disposition home or self-care (01) ==
LOC: DI 13:16
PROVIDERS: ATTEND Physician Assistant Medical
DX: M79.645 Pain in left finger(s) (principal)

== ENCOUNTER 2023-04-23 08:00 | Outpatient (CLI) | payer BC ==
--- NOTE | 2023-04-23 17:47 | XRAY Report ---
PROCEDURE: Foot 3 View LT INDICATIONS: LEFT FOOT PAIN TECHNIQUE: 4 views of the foot were acquired. COMPARISON: 4 views of the left foot dated 08/07/2022. FINDINGS: Bones: No fractures or dislocations. The calcaneal pitch is 20.3 degrees. No suspicious bony lesions . Soft tissues: No suspicious soft tissue calcifications or masses. IMPRESSION: No acute bony abnormality. If pain persists with conservative management, consider repeat radiographs in 10-14 days or cross-sectional imaging. Reviewed by: Keely Fitzgerald MD on 04/23/2023 5:46 PM PST Approved by: Keely Fitzgerald MD on 04/23/2023 5:46 PM PST Station ID: [id number]
== END 2023-04-23 23:59 | disposition home or self-care (01) ==
LOC: DI.WOS 08:00
PROVIDERS: ATTEND Orthopaedic Surgery
DX: S92.002A Unspecified fracture of left calcaneus, initial encounter for closed fracture (principal)

== ENCOUNTER 2023-09-10 10:03 | Outpatient (CLI) | payer BC ==
--- NOTE | 2023-09-10 11:36 | XRAY Report ---
PROCEDURE: Cervical Spine 2-3V INDICATIONS: PARASTHESIA,HANDS TECHNIQUE: 3 view(s) of the cervical spine were acquired. COMPARISON: None. FINDINGS: Bones: Osteopenia. No fractures or dislocations to the T1 level. The lateral masses of C1 appear in tact on the odontoid view. No suspicious bony lesions. Question unerupted right inferior molar toot h. Minimal degenerative disc disease at C5-C6 Soft tissues: No prevertebral soft tissue swelling. Partially visualized catheter noted. IMPRESSION: Osteopenia. Minimal degenerative disc disease at C5-C6. Unerupted right inferior wisdom tooth Reviewed by: Samson Mas MD on 09/10/2023 11:34 AM PDT Approved by: Samson Mas MD on 09/10/2023 11:34 AM PDT Station ID: [id number]
== END 2023-09-10 10:04 | disposition home or self-care (01) ==
LOC: DI 10:03
PROVIDERS: ATTEND Physician Assistant Medical
DX: M50.322 Other cervical disc degeneration at C5-C6 level (principal)

== ENCOUNTER 2023-11-05 06:29 | Outpatient (CLI) | payer BC ==
[2023-11-05 07:52] LABS: CHOL/HDL RATIO 2.5 (<4.4); CHOLESTEROL 157 mg/dL; HDL CHOLESTEROL 63 mg/dL; LDL CHOLESTEROL,CALCULATED 27 mg/dL; LDL/HDL RATIO 0.4 (<4.4); TRIGLYCERIDES 334 mg/dL; VLDL CHOLESTEROL 67 mg/dL
== END 2023-11-05 06:30 | disposition home or self-care (01) ==
LOC: LAB 06:29
PROVIDERS: ATTEND Internal Medicine Cardiovascular Disease
DX: I25.10 Atherosclerotic heart disease of native coronary artery without angina pectoris (principal)
CPT/HCPCS: 36415; 80061; 83721